=== PATIENT | male | born 1990 | race Caucasian/White ===

== ENCOUNTER 2023-08-30 20:29 | Emergency (ER) | payer OTHER, SELFPAY ==
[2023-08-30 20:31] VITALS: BP 142/82; PULSE 90; RESP 18; TEMP 36.7; O2SAT 97; BMI 54.2
--- NOTE | 2023-08-30 20:37 | PC.NURSE ---
pt presents to ED because patient states a week a half ago started having redness and swelling to eyelid. patient states this morning woke up and and eyelid was even more swollen and having trouble seeing now out of left eye. patient states he has been applying warm compresses to eye. unsure if any drainage from eyelid, just states that eyelid feels sticky.. pt believe it is a stye, has had them in past.
--- NOTE | 2023-08-30 20:40 | ED.EYEPROB1 ---
HPI - Eye Problem General Chief complaint: Eye Problems Stated complaint: Eye Pain Time Seen by Provider: 08/30/23 20:36 Source: patient Mode of arrival: walk-in Limitations: no limitations History of Present Illness HPI Narrative: presents complaining of a sty left eye for past few days. States occ film covers the eye. No eye pain or headache. No fever or chills. 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 hi lo when the film covers his eye Related Data Home Medications Medication Instructions Recorded Confirmed amlodipine 5 mg tablet 5 mg PO DAILY 08/30/23 08/30/23 Allergies Allergy/AdvReac Type Severity Reaction Status Date / Time lisinopril Allergy Unknown Verified 08/30/23 20:34 Review of Systems ROS Status of ROS 10 or more systems reviewed and unremarkable except as noted in history and below PFSH PFS Social History Smoking status: Never smoker Exam Constitutional Vital Signs, click to edit/add: Last Vital Signs Temp 98.0 F 08/30/23 20:31 Pulse 90 08/30/23 20:31 Resp 18 08/30/23 20:31 BP 142/82 H 08/30/23 20:31 Pulse Ox 97 08/30/23 20:31 O2 Del Method Room Air 08/30/23 20:31 Common normals: no apparent distress, oriented x3, alert and well nourished Eye Common normals: PERRL, EOMs intact bilaterally and conjunctivae normal Other: mild edema left upper eyelid. Stye left upper eye lid that is pointing Respiratory Common normals: normal respiratory effort, no use of accessory muscles and clear to auscultation bilaterally Cardio Common normals: regular rate, regular rhythm, S1 normal heart sound and S2 normal heart sound Extremity Common normals: normal to inspection and full ROM Neuro Common normals: oriented x3, CN's II-XII intact bilaterally, moves all extremities and no focal motor deficits Psych Appearance: grossly normal Course Vital Signs Vital signs: Vital Signs Temperature 98.0 F 08/30/23 20:31 Pulse Rate 90 08/30/23 20:31 Respiratory Rate 18 08/30/23 20:31 Blood Pressure 142/82 H 08/30/23 20:31 Pulse Oximetry 97 08/30/23 20:31 Oxygen Delivery Method Room Air 08/30/23 20:31 Temperature 98.0 F 08/30/23 20:31 Pulse Rate 90 08/30/23 20:31 Respiratory Rate 18 08/30/23 20:31 Blood Pressure 142/82 H 08/30/23 20:31 Pulse Oximetry 97 08/30/23 20:31 Oxygen Delivery Method Room Air 08/30/23 20:31 MDM - Eye Problem MDM Narrative Medical decision making narrative: patient presents with a stye left upper eyelid. Sty is pointing and associated with mild edema of the left upper eyelid. No associated pain. His only visual complaint is occ film over the eye which I believe is likely from drainage of the sty. Given prescription for E. mycin ophthalmologic ointment and advised of the need for follow up Discharge Plan Discharge Chief Complaint: Eye Problems Clinical Impression: Hordeolum externum left upper eyelid Patient Disposition: Home, Self-Care Prescriptions / Home Meds: No Action amlodipine 5 mg tablet 5 mg PO DAILY Instructions: Renetta (ED) Additional Instructions: follow up with your doctor in the next 1-2 days for recheck Stand Alone Forms: Portal Instructions Referrals: EM NAILS [Primary Care Provider] - 1 week Discharge Date/Time: 08/30/23 21:01
[2023-08-30] MEDS: ERYTHROMYCIN OP OINT 0.5% 1 GM TUBE OP (20:55)
== END 2023-08-30 21:01 | disposition home or self-care (01) ==
PROVIDERS: Emergency Provider Internal Medicine; PCP Nurse Practitioner Family
DX: H00.014 Hordeolum externum left upper eyelid (principal)
CPT/HCPCS: 99283

== ENCOUNTER 2024-01-23 22:05 | Emergency (ER) | payer OTHER, SELFPAY ==
[2024-01-23 22:08] VITALS: BP 158/110; PULSE 98; RESP 16; TEMP 36.6; O2SAT 97; BMI 44.8
--- OUTSIDE RECORDS SUMMARY | 2024-01-23 22:11 | XMS_ITS | CCD ---
Demographics Address [address] [place] [address] Preferred Language en Marital Status Single Mandaeism Affiliation Unknown Race White Ethnic Group Not or Lati no Author Name Unknown Address [address] [place] [address] Organization [facility] Care Team Providers Care Project Management Director Name Role Phone Daisha Marks Unavailable JULIO ., DR STEPHENS Admitting Unavailable HAY ., DR STEPHENS Attending Unavailable HAY ., DR STEPHENS Consulting Unavailable [facility] Unavailable ZIDEVYN, DR ASHLEY Molina Consulting Unavailable PAY ., DR BREAUX Admitting Unavailable PAY ., DR BREAUX Attending Unavailable [facility] Unavailable PAY ., DR BREAUX Consulting Unavailable JESU EM Attending [facility] Ad[facility] Unavailable [facility] Unavailable LINDA, DR KILO Molina Admitting Unavailable ILNDA, DR KILO Molina Attending Unavailable LINDA, DR KILO Molina Consulting Unavailable GOPI ESTEBAN Admitting Unavailable GOPI ESTEBAN Attending Unavailable GOPI ESTEBAN Consulting Unavailable [facility] Unavailable FELIX KEY Consulting Unavailable LINDA, DR KILO Molina Admitting Unavailable LINDA, DR KILO Molina Attending Unavailable LINDA, DR KILO Molina Consulting [facility] Unavailable CLARE CELAYA Consulting Unavailable Allergies Allergy Classification Reported Allergen(s) Allergy Type Date of Onset Reaction(s) Facility (1 source) Amino Acids Drug Allergy 09-03-2021 [facility] Repository Problems Active Problems Problem Classification Problem Date Documented Da te Episodic/Chronic Essential hypertension (1 source) Essential (primary) hypertension; Translations: [ESSENTIAL PRIMARY HYPERTENSION] Onset: 03-15-2023 Chronic Other aftercare (1 source) Other long term care phlebotomist (current) drug therapy; Translations: [OTH CATTLE RANCHER CURRENT DRUG THERAPY] Onset: 03-15-2023 Episodic Other ear and sense organ disorders (3 sources) Otalgia, left ear; Translations: [OTALGIA LEFT EAR] Onset: 12-16-2022 Episodic Other nutritional; endocrine; and metabolic disorders (1 source) Morbid (severe) obesity due to excess calories; Translations: [MORBID SEVERE OBES D/T EXCESS COREY] Onset: 03-15-2023 Chronic Other nutritional; endocrine; and metabolic disorders (1 source) Body mass index (BMI) 50.0-59.9, adult; Translations: [BODY MASS INDEX BMI 50.0-59.9 ADULT] Onset: 03-15-2023 Chronic Other skin disorders (3 sources) Localized swelling, mass and lump, lower limb, bilateral; Translations: [LOC SWELL MASS LUMP LOW LIMB PALAK] Onset: 03-11-2023 Episodic Other upper respiratory infections (1 source) Acute upper respiratory infection, unspecified; Translations: [ACUTE UP RESPIRATORY INFECTION UNS] Onset: 12-17-2022 Episodic Otitis media and related conditions (1 source) Otitis media, unspecified, left ear; Translations: [OTITIS MEDIA UNSPECIFIED LEFT EAR] Onset: 12-17-2022 Episodic Residual codes; unclassified (1 source) Localized edema; Translations: [LOCALIZED EDEMA] Onset: 03-15-2023 Episodic Screening and history of mental health and substance abuse codes (1 source) Personal history of nicotine dependence; Translations: [PERSONAL HISTORY OF NICOTINE DEPEND] Onset: 03-15-2023 Episodic Substance-related disorders (1 source) Nicotine dependence, cigarettes, uncomplicated; Translations: [NICOTINE DEPEND CIGARETTES UNCOMP] Onset: 09-14-2022 Chronic Unclassified (2 sources) COUGH, UNSPECIFIED; Translations: [COUGH, UNSPECIFIED] Onset: 08-03-2022 Viral infection (1 source) COVID-19; Translations: [COVID-19] Onset: 08-03-2022 Past or Other Problems Problem Classification Problem Date Documented Da te Episodic/Chronic E Codes: Natural/environment (1 source) Exposure to other specified factors, initial encounter; Translations: [EXPOSURE OTHER SPEC FACTORS INITIAL] Onset: 06-08-2022 Episodic Inflammation; infection of eye (except that caused by tuberculosis or sexually transmitteddisease) (4 sources) Unspecified conjunctivitis; Translations: [UNSPECIFIED CONJUNCTIVITIS] Onset: 06-07-2022 Episodic Other connective tissue disease (4 sources) Other specified soft tissue disorders; Translations: [OTHER SPEC SOFT TISSUE DISORDERS] Onset: 09-12-2022 Episodic Other inflammatory condition of skin (1 source) Sunburn of first degree; Translations: [SUNBURN OF FIRST DEGREE] Onset: 06-08-2022 Episodic Superficial injury; contusion (1 source) Abrasion of right eyelid and periocular area, initial encounter; Translations: [ABRASION RT EYELID PERIOCULAR INIT] Onset: 06-08-2022 Episodic Unclassified (1 source) COUGH, UNSPECIFIED; Translations: [COUGH, UNSPECIFIED] Onset: 08-01-2022 Results Test Name Value Interpretation Reference Range Facility BNPon 03-11-2023 Natriuretic peptide B (Bld) [Mass/Vol] 6.0 pg/mL Normal <=450.0 [facility] Comment on above: Performed By: #### B CECILIA, BNP #### [facility] [address] [place] [address] Dr. Scarlett Dickey PROF CHEM 8 (BAS METB)on Anion gap [Moles/Vol] 13.2 mmol/L Normal [facility] Comment on above: Performed By: #### B CECILIA, BNP #### [facility] [address] [place] [address] Dr. Scarlett Dickey Calcium [Mass/Vol] 8.4 mg/dL Critically low 8.5-10.1 [facility] Comment on above: Performed By: #### B CECILIA, BNP #### [facility] [address] [place] [address] Dr. Scarlett Dickey Chloride [Moles/Vol] 105 mmol/L Normal 98-107 [facility] Comment on above: Performed By: #### B CECILIA, BNP #### [facility] [address] [place] [address] Dr. Scarlett Dickey CO2 [Moles/Vol] 28.9 mmol/L Normal 21.0-32.0 [facility] Comment on above: Performed By: #### B MP, BNP #### [facility] [address] [place] [address] Dr. Scarlett Dickey Creatinine [Mass/Vol] 1.04 mg/dL Normal 0.70-1.30 [facility] Comment on above: Performed By: #### B CECILIA, BNP #### [facility] [address] [address] [address] Scarlett Dickey EGFR-AF PORTUGUESE >60 Normal >=60 [place] Comment on above: Performed By: #### B MP, BNP #### [facility] [address] [address] [address] Scarlett Dickey EGFR-NON AF PORTUGUESE >60 Normal >=60 [facility] Comment on above: Performed By: #### B MP, BNP #### [facility] [address] [address] [address] Scarlett Dickey Glucose [Mass/Vol] 147 mg/dL Critically high 74-106 [facility] Comment on above: Performed By: #### B MP, BNP #### [facility] [address] [address] [address] Scarlett Dickey Potassium [Moles/Vol] 4.1 mmol/L Normal 3.5-5.1 [facility] Comment on above: Performed By: #### B MP, BNP #### [facility] [address] [address] [address] Scarlett Dickey Sodium [Moles/Vol] 143 mmol/L Normal 136-145 [facility] Comment on above: Performed By: #### B MP, BNP #### [facility] [address] [address] [address] Scarlett Dickey Urea nitrogen [Mass/Vol] 14.0 mg/dL Normal 7.0-18.0 [facility] Comment on above: Performed By: #### B MP, BNP #### [facility] [address] [address] [address] Scarlett Dickey Urea nitrogen/Creatinin e [Mass ratio] 13.5 mg/mg Normal [facility] Comment on above: Performed By: #### B MP, BNP #### [facility] [address] [address] [address] Scarlett Dickey US EDD DOP LEG LTon 03-11-20 23 US EDD DOP LEG LT EXAMINATION: US EDD DOP LEG LT HISTORY: Pain COMPARISON: No relevant comparison available. FINDINGS: REGION: Left lower extremity THROMBI: None. COMPRESSIBILITY: Normal compressibility. FLOW: Normal waveform and antegrade flow between 5 and 20 cm/s. OTHER: None. IMPRESSION: 1. No deep vein thrombus within the left lower extremity. 2. Subcutaneous edema. Electronically authenticated by: ASHLEY LOVELACE Date: 2023-03-11 11:54 Normal [facility] CBC AUTO DIFFon 09-12-2022 BASO # 0.0 103/ul Normal 0.0-0.1 [facility] Comment on above: Performed By: #### C BC #### [facility] [address] [address] [address] Scarlett Dickey Basophils/100 WBC (Bld) 0.6 % Normal 0.2-2.0 [facility] Comment on above: Performed By: #### C BC #### [facility] [address] [address] [address] Scarlett Dickey EO # 0.2 103/ul Normal 0.0-0.7 [facility] Comment on above: Performed By: #### C BC #### [facility] [address] [address] [address] Scarlett Dickey Eosinophils/100 WBC (Bld) 5.0 % Normal 0.9-7.0 [facility] Comment on above: Performed By: #### C BC #### [facility] [address] [address] [address] Scarlett Dickey Erythrocyte distribution width (RBC) [Ratio] 13.6 % Normal 11.0-15.0 [facility] Comment on above: Performed By: #### C BC #### [facility] [address] [address] [address] Scarlett Dickey Hematocrit (Bld) [Volume fraction] 41.7 % Critically low 42.0-54.0 [facility] Comment on above: Performed By: #### C BC #### [facility] [address] [address] [address] Scarlett Dickey Hemoglobin (Bld) [Mass/Vol] 13.4 g/dL Critically low 14.0-18.0 [facility] Comment on above: Performed By: #### C BC #### [facility] [address] [place] [address] Dr. Scarlett Dickey IG # 0.00 10e3/ul Normal 0.00-0.03 [facility] Comment on above: Performed By: #### C BC #### [facility] [address] [place] [address] Dr. Scarlett Dickey IG % 0.0 % Normal 0.0-0.5 [facility] Comment on above: Performed By: #### C BC #### [facility] [address] [place] [address] Dr. Scarlett Dickey LYMPH # 1.2 103/ul Normal 1.2-3.8 [facility] Comment on above: Performed By: #### C BC #### [facility] [address] [place] [address] Dr. Scarlett Dickey Lymphocytes/100 WBC (Bld) 34.2 % Normal 20.5-60.0 [facility] Comment on above: Performed By: #### C BC #### [facility] [address] [place] [address] Dr. Scarlett Dickey MANUAL DIFF REQ NO Normal [facility] Comment on above: Performed By: #### C BC #### [facility] [address] [place] [address] Dr. Scarlett Dickey MCH (RBC) [Entitic mass] 28.6 pg Normal 25.9-34.0 [facility] Comment on above: Performed By: #### C BC #### [facility] [address] [place] [address] Dr. Scarlett Dickey MCHC (RBC) [Mass/Vol] 32.1 g/dL Normal 29.9-35.2 [facility] Comment on above: Performed By: #### C BC #### [facility] [address] [place] [address] Dr. Scarlett Dickey MCV (RBC) [Entitic vol] 88.9 fL Normal 80.0-94.0 [facility] Comment on above: Performed By: #### C BC #### [facility] [address] [place] [address] Dr. Scarlett Dickey MONO # 0.5 103/ul Normal 0.3-0.8 [facility] Comment on above: Performed By: #### C BC #### [facility] [address] [place] [address] Dr. Scarlett Dickey Monocytes/100 WBC (Bld) 13.6 % Critically high 1.7-12.0 [facility] Comment on above: Performed By: #### C BC #### [facility] [address] [place] [address] Dr. Scarlett Dickey NEUT # 1.7 103/ul Normal 1.4-6.5 [facility] Comment on above: Performed By: #### C BC #### [facility] [address] [place] [address] Dr. Scarlett Dickey Neutrophils/100 WBC (Bld) 46.6 % Normal 43.0-75.0 [facility] Comment on above: Performed By: #### C BC #### [facility] [address] [place] [address] Dr. Scarlett Dickey Platelet mean volume (Bld) [Entitic vol] 9.8 fL Normal 9.5-13.5 [facility] Comment on above: Performed By: #### C BC #### [facility] [address] [place] [address] Dr. Scarlett Dickey PLT 262 103/ul Normal 150-450 [facility] Comment on above: Performed By: #### C BC #### [facility] [address] [place] [address] Dr. Scarlett Dickey RBC 4.69 106/ul Critically low 4.70-6.[address] [facility] Comment on above: Performed By: #### C BC #### [facility] [address] [place] [address] Dr. Scarlett Dickey WBC 3.6 103/ul Critically low 4.0-11.0 [facility] Comment on above: Performed By: #### C BC #### [facility] [address] [place] [address] Dr. Scarlett Dickey D-DIMERon 09-12-2022 D-DIMER 0.43 mg/L FEU Normal <=0.59 [facility] Comment on above: Performed By: #### D DIM #### [facility] [address] [place] [address] Dr. Scarlett Dickey D-DIMER COMMENTS SEE BELOW Normal [place] Comment on above: Result Comment: Incr eases in D-Dimer concentration observed with thromboembolic events can be variable due to localization, size, and age of the thrombus. Therefore, a thromboembolic event cannot be diagnosed with certainty on the basis of the reference range. D-Dimers may also be elevated for a variety of disorders including: advanced age, , coronary disease, cancer, liver disease, infection, inflammation, hematoma, DIC, trauma, post-surgery, diabetes, thrombolytic or anticoagulant therapy, stress, and generalized hospitalization. Performed By: #### D DIM #### [facility] [address] [place] [address] Dr. Scarlett Dickey PROF 14(COMP METB)on 022 Albumin [Mass/Vol] 3.5 g/dL Normal 3.4-5.0 [facility] Comment on above: Performed By: #### C MP #### [facility] [address] [place] [address] Dr. Scarlett Dickey Albumin/Globulin [Mass ratio] 1.0 {ratio} Normal [facility] Comment on above: Performed By: #### C MP #### [facility] [address] [place] [address] Dr. Scarlett Dickey ALP [Catalytic activity/Vol] 63 U/L Normal 46-116 [facility] Comment on above: Performed By: #### C MP #### [facility] [address] [place] [address] Dr. Scarlett Dickey ALT [Catalytic activity/Vol] 32 U/L Normal 16-63 [facility] Comment on above: Performed By: #### C MP #### [facility] [address] [place] [address] Dr. Scarlett Dickey Anion gap [Moles/Vol] 6.0 mmol/L Normal [facility] Comment on above: Performed By: #### C MP #### [facility] [address] [address] [address] Scarlett Dickey AST [Catalytic activity/Vol] 12 U/L Critically low 15-37 [facility] Comment on above: Performed By: #### C MP #### [facility] [address] [address] [address] Scarlett Dickey Bilirubin [Mass/Vol] 0.4 mg/dL Normal 0.2-1.0 [facility] Comment on above: Performed By: #### C MP #### [facility] [address] [address] [address] Scarlett Dickey Calcium [Mass/Vol] 8.3 mg/dL Critically low 8.5-10.1 [facility] Comment on above: Performed By: #### C MP #### [facility] [address] [place] [address] Dr. Scarlett Dickey Chloride [Moles/Vol] 105 mmol/L Normal 98-107 [facility] Comment on above: Performed By: #### C MP #### [facility] [address] [address] [address] Scarlett Dickey CO2 [Moles/Vol] 31.1 mmol/L Normal 21.0-32.0 [place] Comment on above: Performed By: #### C MP #### [facility] [address] [address] [address] Scarlett Dickey Creatinine [Mass/Vol] 0.80 mg/dL Normal 0.70-1.30 [facility] Comment on above: Performed By: #### C MP #### [facility] [address] [address] [address] Scarlett Dickey EGFR-AF PORTUGUESE >60 Normal >=60 [place] Comment on above: Performed By: #### C MP #### [facility] [address] [place] [address] Dr. Scarlett Dickey EGFR-NON AF PORTUGUESE >60 Normal >=60 [facility] Comment on above: Performed By: #### C MP #### [facility] [address] [place] [address] Dr. Scarlett Dickey Globulin (S) [Mass/Vol] 3.4 g/dL Normal [facility] Comment on above: Performed By: #### C MP #### [facility] [address] [address] [address] Scarlett Dickey Glucose [Mass/Vol] 103 mg/dL Normal 74-106 [facility] Comment on above: Performed By: #### C MP #### [facility] [address] [address] [address] Scarlett Dickey Potassium [Moles/Vol] 4.1 mmol/L Normal 3.5-5.1 [facility] Comment on above: Performed By: #### C MP #### [facility] [address] [address] [address] Scarlett Dickey Protein [Mass/Vol] 6.9 g/dL Normal 6.4-8.2 [facility] Comment on above: Performed By: #### C MP #### [facility] [address] [address] [address] Scarlett Dickey Sodium [Moles/Vol] 138 mmol/L Normal 136-145 [facility] Comment on above: Performed By: #### C MP #### [facility] [address] [address] [address] Scarlett Dickey Urea nitrogen [Mass/Vol] 9.0 mg/dL Normal 7.0-18.0 [facility] Comment on above: Performed By: #### C MP #### [facility] [address] [address] [address] Scarlett Dickey Urea nitrogen/Creatinin e [Mass ratio] 11.2 mg/mg Normal [facility] Comment on above: Performed By: #### C MP #### [facility] [address] [place] [address] Dr. Scarlett Dickey XR FOREARM LT 2 VIEWSon 11- XR FOREARM LT 2 VIEWS EXAM: XR FOREARM LT 2 VIEWS HISTORY: Pain COMPARISON: None. TECHNIQUE: 2 views left forearm FINDINGS: Osseous mineralization appears appropriate. No evidence of lytic/blastic bony lesion. No cortical destruction or periostitis. No acute fracture lucency or dislocation. Unremarkable soft tissues without radiopaque foreign body seen. IMPRESSION: No radiographic evidence of an acute bony abnormality. Electronically authenticated by: CLARE CELAYA Date: 2022-09-12 06:33 Normal [facility] Covid-19 PCR (CVDTB)on 07-09 SARS-CoV-2 (COVID-19) RNA NATHAN+probe Ql (Unsp spec) Detected Critically abnormal NOT DETECTED [facility] Comment on above: Result Comment: This test is not yet approved or cleared by the [place] FDA. When there are no FDA-approved or cleared tests available, and other criteria are met, FDA can make tests available under an emergency access mechanism called an Emergency Use Authorization (EUA). The EUA for this test is supported by the [place] of Health and Human Service's declaration that circumstances exist to justify the emergency use of in vitro diagnostics for the detection and/or diagnosis of the virus that causes COVID-19. This EUA will remain in effect for the duration of the COVID-19 declaration justifying emergency of IVDs, unless it is terminated or revoked by the FDA (after which the test may no longer be used). Performed By: #### [facility] #### [facility] [address] [place] [address] Dr. Scarlett Dickey XR CHEST 1 Von 08-01-2022 XR CHEST 1 V EXAMINATION: XR CHEST 1 V HISTORY: Cough COMPARISON: Chest x-ray 11/21/2017 TECHNIQUE: Portable chest FINDINGS: The lung parenchyma is free of consolidation or infiltrate. No pneumothorax or pleural effusion. The cardiac, mediastinal and hilar contours are normal. The visualized osseous structures exhibit no gross abnormality. IMPRESSION: Normal chest x-ray Electronically authenticated by: FELIX KEY Date: 2022-08-01 21:16 Normal [facility] Encounters Encounter Date Encounter Type Care Provider Facility Start: 03-11-2023 Patient encounter procedure [facility] Start: 03-11-2023 End: 03-11-[address]SHLEY LOVELACE [facility] [employer] Other Start: 12-16-2022 End: 12-16-[address] ANGELO KIM . Facility:[facility] Start: 09-12-2022 End: 09-12-[address] KILO MCKEON Facility:[facility] Start: 08-01-2022 End: 08-02-2022 ambulatory GOPI EULALIA Facility:[facility] Start: 06-07-2022 End: 06-07-2022 ambulatory EM NAILS Facility:[facility] Start: 04-08-2022 ambulatory EM NAILS Facility: [facility] Payers Date Payer Category Payer Unknown [id number] 2.16.84 [id number] 1989 Unknown [id number] 2.16.84 [id number] 1989 Unknown [id number] 2.16.84 [id number] 1989 Unknown [id number] 2.16.84 [id number] 1989 Unknown [id number] 2.16.84 [id number] 1989 Unknown [id number] 2.16.84 [id number] 1959 Private Health Insurance [id number] 1960 Self-pay [id number] Social History Date Type Detail Facility Sex Assigned At [facility] Other Evaluation note Note Date & Type Note Facility Evaluation note No Information 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 This clinical summary was aggregated from multiple sources. Caution should be exercised in using it in the provision of clinical care. This summary normalizes information from multiple sources, and as a consequence, information in this document may materially change the coding, format and clinical context of patient data. In addition, data may be omitted in some cases. CLINICAL DECISIONS SHOULD BE BASED ON THE PRIMARY CLINICAL RECORDS. [facility] [employer] [facility]. provides no warranty or guarantee of the accuracy or completeness of information in this document.
--- NOTE | 2024-01-23 22:21 | ED_ITS ---
HPI - Wound/Laceration General Chief Complaint: Wound/Laceration Stated Complaint: Lower Extremity Pain Time Seen by Provider: 01/23/24 22:15 Source: patient Mode of arrival: walk-in Limitations: no limitations History of Present Illness HPI narrative: rash posterior left ankle for past 2weeks. States he keeps scratching it and it won't heal because of his scratching. No pain. No fever. Related Data Home Medications Medication Instructions Recorded Confirmed amlodipine 5 mg tablet 5 mg PO DAILY 08/30/23 01/23/24 Allergies Allergy/AdvReac Type Severity Reaction Status Date / Time lisinopril Allergy Unknown Verified 01/23/24 22:12 Review of Systems ROS Status of ROS 10 or more systems reviewed and unremark able except as noted in history and below [facility] Social History Smoking status: Never smoker Exam Constitutional Vital Signs, click to edit/add: Last Vital Signs Temp 97.8 F 01/23/24 22:08 Pulse 98 H 01/23/24 22:08 Resp 16 01/23/24 22:08 BP 158/110 H 01/23/24 22:08 Pulse Ox 97 01/23/24 22:08 O2 Del Method Room Air 01/23/24 22:08 Common normals: no apparent distress, oriented x3, alert and well nourished Eye Common normals: EOMs intact bilaterally and conjunctivae normal Respiratory Common normals: normal respiratory effort, no retractions, no use of accessory muscles and clear to auscultation bilaterally GI Common normals: Normal to inspection, nondistended, normoactive bowel sounds present Extremity Other: coarse 4cm rash left posterior ankle overlying Achilles. No surrounding erythema or swelling. No red streaks. Neuro Common normals: oriented x3, CN's II-XII intact bilaterally, moves all extremities and no focal motor deficits Psych Appearance: grossly normal Course Vital Signs Vital signs: Vital Signs Temperature 97.8 F 01/23/24 22:08 Pulse Rate 98 H 01/23/24 22:08 Respiratory Rate 16 01/23/24 22:08 Blood Pressure 158/110 H 01/23/24 22:08 Pulse Oximetry 97 01/23/24 22:08 Oxygen Delivery Method Room Air 01/23/24 22:08 Temperature 97.8 F 01/23/24 22:08 Pulse Rate 98 H 01/23/24 22:08 Respiratory Rate 16 01/23/24 22:08 Blood Pressure 158/110 H 01/23/24 22:08 Pulse Oximetry 97 01/23/24 22:08 Oxygen Delivery Method Room Air 01/23/24 22:08 MDM - Wound/Laceration MDM Narrative Medical decision making narrative: continued pruritic focal rash left posterior ankle. Will plan to treat with prednisone and triamcinolone cream . He is advised to follow up with his family doctor later this week for recheck Discharge Plan Discharge Stand Alone Forms: Portal Instructions Chief Complaint: Wound/Laceration Clinical Impression: Rash Prescriptions / Home Meds: No Action amlodipine 5 mg tablet 5 mg PO DAILY Instructions: Acute Rash (ED) Additional Instructions: follow up with your doctor this week for recheck Referrals: EM NAILS [Primary Care Provider] - 1 week
== END 2024-01-23 22:43 | disposition home or self-care (01) ==
PROVIDERS: Emergency Provider Internal Medicine; PCP Nurse Practitioner Family
DX: R21 Rash and other nonspecific skin eruption (principal); Z79.899 Other long term (current) drug therapy
CPT/HCPCS: 99283

== ENCOUNTER 2024-02-28 05:50 | Emergency (ER) | payer OTHER, SELFPAY ==
[2024-02-28 05:53] VITALS: BP 172/105; PULSE 90; TEMP 36.6; O2SAT 98; BMI 57.0
--- OUTSIDE RECORDS SUMMARY | 2024-02-28 05:55 | XMS_ITS | CCD ---
Demographics Address [address] [place] [address] Preferred Language en Marital Status Single Druze Affiliation Unknown Race White Ethnic Group Not or Lati no Author Organization [facility] Care Team Providers Care Oil Well Pumper Name Role Phone Daisha Marks Unavailable JULIO ., DR STEPHENS Admitting Unavailable HAY ., DR STEPHENS Attending Unavailable HAY ., DR STEPHENS Consulting [facility] Unavailable ZIEBGERMAN, DR ASHLEY Molina Consulting Unavailable PAY ., DR BREAUX Admitting Unavailable PAY ., DR BREAUX Attending Unavailable [facility], [facility] Unavailable PAY ., DR BREAUX Consulting Unavailable JESU, EM Attending Unavailable [facility], [facility] Unavailable JESU, EM Admitting Un[facility] LINDA, DR KILO Mloina Admitting Unavailable LINDA, DR KILO Molina Attending Unavailable LINDA, DR KILO Molina Consulting Unavailable GOPI ESTEBAN Admitting Unavailable EULALIA, GOPI Attending Unavailable GOPI ESTEBAN Consulting [facility] FELIX KEY Consulting Unavailable LINDA, DR KILO Molina Admitting Unavailable LINDA, DR KILO Molina Attending Unavailable LINDA, DR KILO Molina Consulting Unavailable JESU, [facility] Unavailable CLARE CELAYA Consulting Unavailable Allergies Allergy Classification Reported Allergen(s) Allergy Type Date of Onset Reaction(s) Facility (1 source) Amino Acids Drug Allergy 09-03-2021 [facility] Repository Problems Active Problems Problem Classification Problem Date Documented Da te Episodic/Chronic Essential hypertension (1 source) Essential (primary) hypertension; Translations: [ESSENTIAL PRIMARY HYPERTENSION] Onset: 03-15-2023 Chronic Other aftercare (1 source) Other ocean transportation intermediary (current) drug therapy; Translations: [OTH USP CURRENT DRUG THERAPY] Onset: 03-15-2023 Episodic Other [...] B (Bld) [Mass/Vol] 6.0 pg/mL Normal <=450.0 [facility] Comment on above: Performed By: #### B MP, BNP #### [facility] [address] [place] [address] Dr. Scarlett Dickey PROF CHEM 8 (BAS METB)on Anion gap [Moles/Vol] 13.2 mmol/L Normal [facility] Comment on above: Performed By: #### B CECILIA, BNP #### [facility] [address] [place] [address] Dr. Scarlett Dickey Calcium [Mass/Vol] 8.4 mg/dL Critically low 8.5-10.1 Th [facility] Comment on above: Performed By: #### B MP, BNP #### [facility] [address] [place] [address] Dr. Scarlett Dickey Chloride [Moles/Vol] 105 mmol/L Normal 98-107 [facility] Comment on above: Performed By: #### B MP, BNP #### [facility] [address] [place] [address] Dr. Scarlett Dickey CO2 [Moles/Vol] 28.9 mmol/L Normal 21.0-32.0 [facility] Comment on above: Performed By: #### B MP, BNP #### [facility] [address] [place] [address] Dr. Scarlett Dickey Creatinine [Mass/Vol] 1.04 mg/dL Normal 0.70-1.30 [facility] Comment on above: Performed By: #### B MP, BNP #### [facility] [address] [place] [address] Dr. Scarlett Dickey EGFR-AF BURUNDIAN >60 Normal >=60 [facility] Comment on above: Performed By: #### B MP, BNP #### [facility] [address] [place] [address] Dr. Scarlett Dickey EGFR-NON AF BURUNDIAN >60 Normal >=60 [facility] Comment on above: Performed By: #### B MP, BNP #### [facility] [address] [address] [address] Scarlett Dickey Glucose [Mass/Vol] 147 mg/dL Critically high 74-106 [facility] Comment on above: Performed By: #### B MP, BNP #### [facility] [address] [address] [address] Scarlett Dickey Potassium [Moles/Vol] 4.1 mmol/L Normal 3.5-5.1 [facility] Comment on above: Performed By: #### B MP, BNP #### [facility] [address] [place] [address] Dr. Scarlett Dickey Sodium [Moles/Vol] 143 mmol/L Normal 136-145 [facility] Comment on above: Performed By: #### B MP, BNP #### [facility] [address] [place] [address] Dr. Scarlett Dickey Urea nitrogen [Mass/Vol] 14.0 mg/dL Normal 7.0-18.0 [facility] Comment on above: Performed By: #### B MP, BNP #### [facility] [address] [place] [address] Dr. Scarlett Dickey Urea nitrogen/Creatinin e [Mass ratio] 13.5 mg/mg Normal [facility] Comment on above: Performed By: #### B MP, BNP #### [facility] [address] [place] [address] Dr. Scarlett Dickey US EDD DOP LEG LTon 03-11-20 US EDD DOP LEG LT EXAMINATION: US EDD DOP LEG LT HISTORY: Pain COMPARISON: No relevant comparison available. FINDINGS: REGION: Left lower extremity THROMBI: None. COMPRESSIBILITY: Normal compressibility. FLOW: Normal waveform and antegrade flow between 5 and 20 cm/s. OTHER: None. IMPRESSION: 1. No deep vein thrombus within the left lower extremity. 2. Subcutaneous edema. Electronically authenticated by: ASHLEY VICKGISELLGERMAN Date: 2023-03-11 11:54 Normal [facility] CBC AUTO DIFFon 09-12-2022 BASO # 0.0 103/ul Normal 0.0-0.1 [facility] Comment on above: Performed By: #### C BC #### [facility] [address] [place] [address] Dr. Scarlett Dickey Basophils/100 WBC (Bld) 0.6 % Normal 0.2-2.0 [facility] Comment on above: Performed By: #### C BC #### [facility] [address] [place] [address] Dr. Scarlett Dickey EO # 0.2 103/ul Normal 0.0-0.7 [facility] Comment on above: Performed By: #### C BC #### [facility] [address] [place] [address] Dr. Scarlett Dickey Eosinophils/100 WBC (Bld) 5.0 % Normal 0.9-7.0 [facility] Comment on above: Performed By: #### C BC #### [facility] [address] [place] [address] Dr. Scarlett Dickey Erythrocyte distribution width (RBC) [Ratio] 13.6 % Normal 11.0-15.0 [facility] Comment on above: Performed By: #### C BC #### [facility] [address] [place] [address] Dr. Scarlett Dickey Hematocrit (Bld) [Volume fraction] 41.7 % Critically low 42.0-54.0 [facility] Comment on above: Performed By: #### C BC #### [facility] [address] [place] [address] Dr. Scarlett Dickey Hemoglobin (Bld) [Mass/Vol] 13.4 g/dL Critically low 14.0-18.0 [facility] Comment on above: Performed By: #### C BC #### [facility] [address] [place] [address] Dr. Scarlett Dickey IG # 0.00 10e3/ul Normal 0.00-0.03 [facility] Comment on above: Performed By: #### C BC #### [facility] [address] [place] [address] Dr. Scarlett Dickey IG % 0.0 % Normal 0.0-0.5 [facility] Comment on above: Performed By: #### C BC #### [facility] [address] [place] [address] Dr. Scarlett Dickey LYMPH # 1.2 103/ul Normal 1.2-3.8 [facility] Comment on above: Performed By: #### C BC #### [facility] [address] [place] [address] Dr. Scarlett Dickey Lymphocytes/100 WBC (Bld) 34.2 % Normal 20.5-60.0 [facility] Comment on above: Performed By: #### C BC #### [facility] [address] [place] [address] Dr. Scarlett Dickey MANUAL DIFF REQ NO Normal [facility] Comment on above: Performed By: #### C BC #### [facility] [address] [place] [address] Dr. Scarlett Dickey MCH (RBC) [Entitic mass] 28.6 pg Normal 25.9-34.0 [facility] Comment on above: Performed By: #### C BC #### [facility] [address] [place] [address] Dr. Scarlett Dickey MCHC (RBC) [Mass/Vol] 32.1 g/dL Normal 29.9-35.2 [facility] Comment on above: Performed By: #### C BC #### [facility] [address] [place] [address] Dr. Scarlett Dickey MCV (RBC) [Entitic vol] 88.9 fL Normal 80.0-94.0 [facility] Comment on above: Performed By: #### C BC #### [facility] [address] [place] [address] Dr. Scarlett Dickey MONO # 0.5 103/ul Normal 0.3-0.8 [facility] Comment on above: Performed By: #### C BC #### [facility] [address] [address] [address] Scarlett Dickey Monocytes/100 WBC (Bld) 13.6 % Critically high 1.7-12.0 [facility] Comment on above: Performed By: #### C BC #### [facility] [address] [address] [address] Scarlett Dickey NEUT # 1.7 103/ul Normal 1.4-6.5 [facility] Comment on above: Performed By: #### C BC #### [facility] [address] [address] [address] Scarlett Dickey Neutrophils/100 WBC (Bld) 46.6 % Normal 43.0-75.0 [facility] Comment on above: Performed By: #### C BC #### [facility] [address] [place] [address] Dr. Scarlett Dickey Platelet mean volume (Bld) [Entitic vol] 9.8 fL Normal 9.5-13.5 [facility] Comment on above: Performed By: #### C BC #### [facility] [address] [place] [address] Dr. Scarlett Dickey PLT 262 103/ul Normal 150-450 [facility] Comment on above: Performed By: #### C BC #### [facility] [address] [place] [address] Dr. Scarlett Dickey RBC 4.69 106/ul Critically low 4.70-6.10 [facility] Comment on above: Performed By: #### C BC #### [facility] [address] [place] [address] Dr. Scarlett Dickey WBC 3.6 103/ul Critically low 4.0-11.0 [facility] Comment on above: Performed By: #### C BC #### [facility] [address] [place] [address] Dr. Scarlett Dickey D-DIMERon 09-12-2022 D-DIMER 0.43 mg/L FEU Normal <=0.59 [facility] Comment on above: Performed By: #### D DIM #### [facility] [address] [place] [address] Dr. Scarlett Dickey D-DIMER COMMENTS SEE BELOW Normal [facility] Comment on above: Result Comment: Incr eases [...] hospitalization. Performed By: #### D DIM #### [facility] [address] [place] [address] Dr. Scarlett Dickey PROF 14(COMP METB)on 022 Albumin [Mass/Vol] 3.5 g/dL Normal 3.4-5.0 [facility] Comment on above: Performed By: #### C MP #### [facility] [address] [place] [address] Dr. Scarlett Dickey Albumin/Globulin [Mass ratio] 1.0 {ratio} Normal [facility] Comment on above: Performed By: #### C MP #### [facility] [address] [place] [address] Dr. Scarlett Dickey ALP [Catalytic activity/Vol] 63 U/L Normal 46-116 [facility] Comment on above: Performed By: #### C MP #### [facility] [address] [place] [address] Dr. Scarlett Dickey ALT [Catalytic activity/Vol] 32 U/L Normal 16-63 [facility] Comment on above: Performed By: #### C MP #### [facility] [address] [place] [address] Dr. Scarlett Dickey Anion gap [Moles/Vol] 6.0 mmol/L Normal [facility] Comment on above: Performed By: #### C MP #### [facility] [address] [place] [address] Dr. Scarlett Dickey AST [Catalytic activity/Vol] 12 U/L Critically low 15-37 [facility] Comment on above: Performed By: #### C MP #### [facility] [address] [address] [address] Scarlett Dickey Bilirubin [Mass/Vol] 0.4 mg/dL Normal 0.2-1.0 [facility] Comment on above: Performed By: #### C MP #### [facility] [address] [address] [address] Scarlett Dickey Calcium [Mass/Vol] 8.3 mg/dL Critically low 8.5-10.1 [facility] Comment on above: Performed By: #### C MP #### [facility] [address] [place] [address] Dr. Scarlett Dickey Chloride [Moles/Vol] 105 mmol/L Normal 98-107 [facility] Comment on above: Performed By: #### C MP #### [facility] [address] [place] [address] Dr. Scarlett Dickey CO2 [Moles/Vol] 31.1 mmol/L Normal 21.0-32.0 [facility] Comment on above: Performed By: #### C MP #### [facility] [address] [place] [address] Dr. Scarlett Dickey Creatinine [Mass/Vol] 0.80 mg/dL Normal 0.70-1.30 [facility] Comment on above: Performed By: #### C MP #### [facility] [address] [place] [address] Dr. Scarlett Dickey EGFR-AF BURUNDIAN >60 Normal >=60 [facility] Comment on above: Performed By: #### C MP #### [facility] [address] [place] [address] Dr. Scarlett Dickey EGFR-NON AF BURUNDIAN >60 Normal >=60 [facility] Comment on above: Performed By: #### C MP #### [facility] [address] [place] [address] Dr. Scarlett Dickey Globulin (S) [Mass/Vol] 3.4 g/dL Normal [facility] Comment on above: Performed By: #### C MP #### [facility] [address] [address] [address] Scarlett Dickey Glucose [Mass/Vol] 103 mg/dL Normal 74-106 [facility] Comment on above: Performed By: #### C MP #### [facility] [address] [address] [address] Scarlett Dickey Potassium [Moles/Vol] 4.1 mmol/L Normal 3.5-5.1 [facility] Comment on above: Performed By: #### C MP #### [facility] [address] [address] [address] Scarlett Dickey Protein [Mass/Vol] 6.9 g/dL Normal 6.4-8.2 [facility] Comment on above: Performed By: #### C MP #### [facility] [address] [address] [address] Scarlett Dickey Sodium [Moles/Vol] 138 mmol/L Normal 136-145 [facility] Comment on above: Performed By: #### C MP #### [facility] [address] [address] [address] Scarlett Dickey Urea nitrogen [Mass/Vol] 9.0 mg/dL Normal 7.0-18.0 [facility] Comment on above: Performed By: #### C MP #### [facility] [address] [address] [address] Scarlett Dickey Urea nitrogen/Creatinin e [Mass ratio] 11.2 mg/mg Normal [facility] Comment on above: Performed By: #### C MP #### [facility] [address] [address] [address] Scarlett Dickey XR FOREARM LT 2 VIEWSon XR FOREARM LT 2 VIEWS EXAM: XR [...] CLARE CELAYA Date: 2022-09-12 06:33 Normal [facility] 07-09 SARS-CoV-2 (COVID-19) RNA NATHAN+probe Ql (Unsp spec) Detected Critically abnormal NOT DETECTED [facility] Comment on above: Result Comment: This test is not yet approved or cleared by the [place] FDA. When there are no FDA-approved or cleared tests available, and other criteria are met, FDA can make tests available under an emergency access mechanism called an Emergency Use Authorization (EUA). The EUA for this test is supported by the Event Staff of Health and Human Service's declaration that [...] longer be used). Performed By: #### [facility] #### [facility] [address] [address] [address] Scarlett Dickey XR CHEST 1 Von [...] FELIX KEY Date: 2022-08-01 21:16 Normal [facility] Encounters Encounter Date Encounter Type Care Provider Facility Start: 03-11-2023 Patient encounter procedure [facility] Start: 03-11-2023 End: 03-11-[address] ASHLEY LOVEL[facility] Other Start: 12-16-2022 End: 12-16-[address] ANGELO KIM . Facility:[facility] Start: 09-12-2022 End: 09-12-[address] KILO MCKEON Facility:[facility] Start: 08-01-2022 End: 08-02-2022 ambulatory GOPI ESTEBAN Facility:[facility] Start: 06-07-2022 End: 06-07-2022 ambulatory EM NAILS Facility:[facility] Start: 04-08-2022 ambulatory EM NAILS Facility: [facility] Payers Date Payer Category Payer Unknown [id number] 2.16.84 [id number] 1989 Unknown [id number] 2.16.84 [id number] 1989 Unknown [id number] 2.16.84 [id number] 1989 Unknown [id number] 2.16.84 [id number] 1989 Unknown [id number] 2.16.84 [id number] 1989 Unknown [id number] 2.16.84 [id number] 1959 Private Health Insurance [id number] 1960 Self-pay [id number] Social History Date Type Detail Facility Sex Assigned At [facility] Other Evaluation note Note Date & Type Note Facility Evaluation note No Information [facility] Other Summary Purpose Family History No Family History Records Found Advance Directives No Advanced Directives Records Found Additional Source Comments REASON FOR VISIT (unrecogniz ed section and content) swelling in legs 4+ pitting edema, 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 [facility] [employer] [facility]. provides no warranty or guarantee of the accuracy or completeness of information in this document.
--- NOTE | 2024-02-28 06:07 | ECG_ITS ---
[facility] Test Date: 2024-02-28 Pat Name: KRISTA LAND Department: Room: - Gender: Male Washer Off: : 1990 Requested By: EM NAILS Order Number: [id number] Reading MD: MONALIAS HOLM Measurements Intervals [place] Rate: 89 P: 50 [place]: 160 QRS: 79 QRSD: 76 T: 54 QT: 330 QTc: 376 Interpretive Statements 1100 Sinus rhythm 9110 normal ECG No previous ECG available for comparison Electronically Signed On 02-28-2024 18:03:51 EDT by MONALISA HOLM
--- NOTE | 2024-02-28 06:07 | ED.GENADUL1 ---
HPI HPI - General Adult General Chief complaint: Anxiety Stated complaint: NEED TO TALK TO DOC, NOT SICK WON'T TELL ME Time Seen by Provider: 02/28/24 05:54 Source: patient Mode of arrival: walk-in History of Present Illness HPI narrative: 34-year-old male presents for the fear of swallowing, he feels like he is going to choke. It is for days ago while he was eating a steak at a restaurant. He was able to eat half a steak and then when he went to take another bite he felt like he was going to choke. Since then he has not been eating much food at all but he has been drinking liquids without difficulty. He made some potato chips soggy today and was able to swallow them. No chest pain or tightness in his chest. He has never had endoscopy or had a food bolus. Related Data Home Medications ?Medication ?Instructions ?Recorded ?Confirmed amlodipine 5 mg tablet 5 mg PO DAILY 08/30/23 02/28/24 Allergies Allergy/AdvReac Type Severity Reaction Status Date / Time lisinopril Allergy Unknown Verified 02/28/24 06:00 Opioid HPI Opioid Management Most Recent Opioid Data: No Data to Display Review of Systems ROS Narrative A ten point review of systems is negative except as noted above. PFSH PFSH Social History Smoking status: Never smoker Exam Narrative Exam Narrative: Nurses note and vital signs reviewed and patient is not hypoxic. General: The patient appears well and in no apparent distress. Patient is resting comfortably on cart. Skin: Warm, dry, no pallor noted. There is no rash noted. Head: Normocephalic, atraumatic Eye: Normal conjunctiva, no drainage Ears, Nose, Mouth, and Throat: oral mucosa is moist. Nares patent. No pharyngeal erythema or exudate. Cardiovascular: Regular Rate and Rhythm Respiratory: Patient is in no distress, no accessory muscle use, lungs are clear to auscultation, no wheezing, rales or rhonchi Back: non-tender GI: Obese soft and nontender Musculoskeletal: The patient has no evidence of calf tenderness, no pitting edema, symmetrical pulses noted bilaterally Neurological: A&O, normal speech Psychiatric: Cooperative Constitutional Vital Signs, click to edit/add: Last Vital Signs Temp 97.9 F 02/28/24 05:53 Pulse 90 02/28/24 05:53 Resp 24 H 02/28/24 05:53 BP 172/105 H 02/28/24 05:53 Pulse Ox 98 02/28/24 05:53 O2 Del Method Room Air 02/28/24 05:53 Course Vital Signs Vital signs: Vital Signs Temperature 97.9 F 02/28/24 05:53 Pulse Rate 90 02/28/24 05:53 Respiratory Rate 24 H 02/28/24 05:53 Blood Pressure 172/105 H 02/28/24 05:53 Pulse Oximetry 98 02/28/24 05:53 Oxygen Delivery Method Room Air 02/28/24 05:53 Temperature 97.9 F 02/28/24 05:53 Pulse Rate 90 02/28/24 05:53 Respiratory Rate 24 H 02/28/24 05:53 Blood Pressure 172/105 H 02/28/24 05:53 Pulse Oximetry 98 02/28/24 05:53 Oxygen Delivery Method Room Air 02/28/24 05:53 Medical Decision Making MDM Narrative Medical decision making narrative: Blood work is nonspecific. He is able to drink liquids without any difficulty and was able to eat some food as well. He is not dehydrated. I do not clinically suspect a food bolus. He was given referral to general surgery for endoscopy if his symptoms persist and he is going to follow-up with his PCP. Treatment diagnosis and follow-up were discussed with the patient. Differential Diagnosis Differential Diagnosis: Anxiety, food bolus, dehydration Lab Data Lab results reviewed: Yes I reviewed the patient's lab results Labs: Lab Results 02/28/24 02/28/24 Range/Units 06:30 06:35 WBC 5.3 (4.0-11.0) 10^3/uL RBC 4.77 (4.70-6.10) 10^6/uL Hgb 13.6 L (14.0-18.0) g/dL Hct 42.7 (42.0-54.0) % MCV 89.5 (80.0-94.0) fL MCH 28.5 (25.9-34.0) pg MCHC 31.9 (29.9-35.2) g/dL RDW 13.2 (11.0-15.0) % Plt Count 241 (150-450) 10^3/uL MPV 9.7 (9.5-13.5) fL Neut % (Auto) 63.8 (43.0-75.0) % Lymph % (Auto) 21.7 (20.5-60.0) % Peñuel[place] % (Auto) 10.1 (1.7-12.0) % Eos % (Auto) 3.6 (0.9-7.0) % Baso % (Auto) 0.8 (0.2-2.0) % Neut # (Auto) 3.4 (1.4-6.5) 10^3/uL Lymph # (Auto) 1.1 L (1.2-3.8) 10^3/uL Peñuel[place] # (Auto) 0.5 (0.3-0.8) 10^3/uL Eos # (Auto) 0.2 (0.0-0.7) 10^3/uL Baso # (Auto) 0.0 (0.0-0.1) 10^3/uL Abs Immat Gran (auto) 0.00 (0.00-0.03) 10^3/uL Imm/Tot Granulo (auto) 0.0 (0.0-0.5) % Sodium 139 (136-145) mmol/L Potassium 4.0 (3.5-5.1) mmol/L Chloride 102 (98-107) mmol/L Carbon Dioxide 27.5 (21.0-32.0) mmol/L Anion Gap 13.5 BUN 10.0 (7.0-18.0) mg/dL Creatinine 0.93 (0.70-1.30) mg/dL Est GFR ( Amer) >60 (>=60) Est GFR (Non-Af Amer) >60 (>=60) BUN/Creatinine Ratio 10.8 Glucose 109 H (74-106) mg/dL Calcium 9.4 (8.5-10.1) mg/dL Urine Color Yellow (YELLOW) Urine Clarity Clear (CLEAR) Urine pH 5.5 (5.0-9.0) Ur Specific Cecil >=1.030 A (1.005-1.025) Urine Protein Negative (NEG/TRACE) mg/dL Urine Glucose (UA) Negative (NEGATIVE) mg/dL Urine Ketones Trace A (NEGATIVE) mg/dL Urine Occult Blood Negative (NEGATIVE) Urine Nitrite Negative (NEGATIVE) Urine Bilirubin Negative (NEGATIVE) Urine Urobilinogen 0.2 (0.2-1.0) EU/dL Ur Leukocyte Esterase Negative (NEGATIVE) Urine RBC 0-2 (0-2) #/HPF Urine WBC 0-2 A (NONE SEEN) #/HPF Ur Squamous Epith Cells None seen (NONE/RARE) #/LPF Urine Crystals None seen (None Seen) #/HPF Urine Bacteria None seen (NONE SEEN) #/HPF Urine Casts None seen (NONE SEEN) #/LPF Urine Mucus Trace A (NONE SEEN) ECG Data Attestation: I personally reviewed and interpreted this ECG as follows: (EKG on my interpretation shows sinus rhythm without acute change) Discharge Plan Discharge Stand Alone Forms: Portal Instructions Chief Complaint: Anxiety Clinical Impression: Acute anxiety Patient Disposition: Home, Self-Care Time of Disposition Decision: 06:51 Condition: Good Mode of Transportation: Private Vehicle Prescriptions / Home Meds: No Action amlodipine 5 mg tablet 5 mg PO DAILY Print Language: Italian Instructions: Anxiety (ED) Referrals: EM NAILS [Primary Care Provider] - 1 week
[2024-02-28 06:34] LABS: Basophils Percent Auto 0.8 % (0.2-2.0); Eosinophils Absolute Auto 0.2 10^3/uL (0.0-0.7); Eosinophils Percent Auto 3.6 % (0.9-7.0); Hematocrit 42.7 % (42.0-54.0); Hemoglobin 13.6 g/dL (14.0-18.0); Lymphocytes Absolute Auto 1.1 10^3/uL (1.2-3.8); Lymphocytes Percent Auto 21.7 % (20.5-60.0); Mean Corpuscular HGB Conc 31.9 g/dL (29.9-35.2); Mean Corpuscular Hemoglobin 28.5 pg (25.9-34.0); Mean Corpuscular Volume 89.5 fL (80.0-94.0); Mean Platelet Volume 9.7 fL (9.5-13.5); Monocytes Absolute Auto 0.5 10^3/uL (0.3-0.8); Monocytes Percent Auto 10.1 % (1.7-12.0); Neutrophils Absolute Auto 3.4 10^3/uL (1.4-6.5); Neutrophils Percent Auto 63.8 % (43.0-75.0); Platelet Count 241 10^3/uL (150-450); Red Blood Count 4.77 10^6/uL (4.70-6.10); Red Cell Distribution Width 13.2 % (11.0-15.0); White Blood Count 5.3 10^3/uL (4.0-11.0)
[2024-02-28 06:37] LABS: Bilirubin Urine NEGATIVE (NEGATIVE); Blood Urine NEGATIVE (NEGATIVE); Clarity Urine CLEAR (CLEAR); Color Urine YELLOW (YELLOW); Glucose Urine UA NEGATIVE (NEGATIVE); Ketones Urine TRACE mg/dL (NEGATIVE); Leukocyte Esterase Urine NEGATIVE (NEGATIVE); Nitrite Urine NEGATIVE (NEGATIVE); Protein Urine NEGATIVE (NEG/TRACE); Specific Gravity Urine >=1.030 (1.005-1.025); Urobilinogen Urine 0.2 EU/dL (0.2-1.0); pH Urine 5.5 (5.0-9.0)
[2024-02-28] MEDS: 0.9 % SODIUM CHLORIDE 1,000 ML 1000 ML IV (06:40)
[2024-02-28 06:43] LABS: Anion Gap 13.5; BUN Creatinine Ratio 10.8; Calcium 9.4 mg/dL (8.5-10.1); Carbon Dioxide 27.5 mmol/L (21.0-32.0); Chloride 102 mmol/L (98-107); Estimated GFR (African America >60 (>=60); Estimated GFR (Non-African Ame >60 (>=60); Glucose 109 mg/dL (74-106); Sodium 139 mmol/L (136-145)
[2024-02-28 06:46] VITALS: PULSE 89
[2024-02-28 06:48] LABS: RBC Urine 0-2 #/HPF (0-2); WBC Urine 0-2 #/HPF (NONE SEEN)
[2024-02-28 06:49] LABS: Bacteria Urine NONE SEEN #/HPF (NONE SEEN); Cast Seen? NONE SEEN #/LPF (NONE SEEN); Crystals Seen? None Seen #/HPF (None Seen); Mucus Urine TRACE (NONE SEEN); Squamous Epithelial Cell Urine NONE SEEN #/LPF (NONE/RARE)
--- NOTE | 2024-02-28 06:49 | PC.NURSE ---
patient reports a fear of choking since he had a burger go down the wrong tube 3 days ago and had a panick attack. patient stats he can tolerate any liquids perfectly fine but has not been able to eat due to the anxiety and fear.
== END 2024-02-28 07:00 | disposition home or self-care (01) ==
PROVIDERS: Emergency Provider Emergency Medicine; PCP Nurse Practitioner Family
DX: F41.9 Anxiety disorder, unspecified (principal); Z79.899 Other long term (current) drug therapy
CPT/HCPCS: 36415; 80048; 81001; 85025; 93005; 99284

== ENCOUNTER 2024-03-13 06:40 | Outpatient (OUT) | payer OTHER, SELFPAY ==
--- OUTSIDE RECORDS SUMMARY | 2024-03-13 06:43 | XMS_ITS | CCD ---
Demographics Address [address] [place] [address] Preferred Language en Marital Status Single Pentecostal Affiliation Unknown Race White Ethnic Group Not or Lati no Author Organization [facility] Care Team Providers Care Scabbler Name Role Phone Daisha Marks Unavailable JULIO ., DR STEPHENS Admitting Unavailable HAY ., DR STEPHENS Attending Unavailable HAY ., DR STEPHENS Consulting [facility] Unavailable ZIEBGERMAN, DR ASHLEY Molina Consulting Unavailable PAY ., DR BREAUX Admitting Unavailable PAY ., DR BREAUX Attending Unavailable [facility] Unavailable PAY ., DR BREAUX Consulting Unavailable JESU, EM Attending Unavailable JESU, [facility] Unavailable JESU, EM Admitting Un[facility] LINDA, DR KILO Molina Admitting Unavailable LINDA, DR KILO Molina Attending Unavailable LINDA, DR KILO Molina Consulting Unavailable GOPI ESTEBAN Admitting Unavailable EULALIA, GOPI Attending Unavailable GOPI ESTEBAN Consulting [facility] FELIX KEY Consulting Unavailable LINDA, DR KILO Molina Admitting Unavailable LINDA, DR KILO Molina Attending Unavailable LINDA, DR KILO Molina Consulting Unavailable JESU, [facility] Unavailable CLARE CELAYA Consulting Unavailable Allergies Allergy Classification Reported Allergen(s) Allergy Type Date of Onset Reaction(s) Facility (1 source) Amino Acids Drug Allergy 09-03-2021 [facility] Repository Problems Active Problems Problem Classification Problem Date Documented Da te Episodic/Chronic Essential hypertension (1 source) Essential (primary) hypertension; Translations: [ESSENTIAL PRIMARY HYPERTENSION] Onset: 03-15-2023 Chronic Other aftercare (1 source) Other terminal carman (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 Scarlett Dickey PROF CHEM 8 (BAS METB)on Anion gap [Moles/Vol] 13.2 mmol/L Normal [facility] Comment on above: Performed By: #### B MP, BNP #### [facility] [address] [place] [address] Dr. Scarlett Dickey Calcium [Mass/Vol] 8.4 mg/dL Critically low 8.5-10.1 [facility] Comment on above: Performed By: #### B MP, BNP #### [facility] [address] [place] [address] Dr. Scarlett Dickey Chloride [Moles/Vol] 105 mmol/L Normal 98-107 [facility] Comment on above: Performed By: #### B MP, BNP #### [facility] [address] [place] [address] Dr. Scarlett Dickey CO2 [Moles/Vol] 28.9 mmol/L Normal 21.0-32.0 [facility] Comment on above: Performed By: #### B MP, BNP #### [facility] [address] [place] [address] Dr. Scarlett Dickey Creatinine [Mass/Vol] 1.04 mg/dL Normal 0.70-1.30 [facility] Comment on above: Performed By: #### B MP, BNP #### [facility] [address] [place] [address] Dr. Scarlett Dickey EGFR-AF NIGERIAN >60 Normal >=60 [facility] Comment on above: Performed By: #### B MP, BNP #### [facility] [address] [place] [address] Dr. Scarlett Dickey EGFR-NON AF NIGERIAN >60 Normal >=60 [facility] Comment on above: Performed By: #### B MP, BNP #### [facility] [address] [address] [address] Scarlett Dickey Glucose [Mass/Vol] 147 mg/dL Critically high 74-106 [facility] Comment on above: Performed By: #### B MP, BNP #### [facility] [address] [address] [address] Scarlett Dickey Potassium [Moles/Vol] 4.1 mmol/L Normal 3.5-5.1 [facility] Comment on above: Performed By: #### B MP, BNP #### [facility] [address] [place] [address] Dr. Scarlett Dickey Sodium [Moles/Vol] 143 mmol/L Normal 136-145 [facility] Comment on above: Performed By: #### B MP, BNP #### [facility] [address] [place] [address] Dr. Scarlett Dickey Urea nitrogen [Mass/Vol] 14.0 mg/dL Normal 7.0-18.0 [facility] Comment on above: Performed By: #### B MP, BNP #### [facility] [address] [place] [address] Dr. Scarlett Dickey Urea nitrogen/Creatinin e [Mass ratio] 13.5 mg/mg Normal [facility] Comment on above: Performed By: #### B MP, BNP #### [facility] [address] [place] [address] Dr. Scarlett Dickey US EDD DOP LEG [...] ASHLEY LOVELACE Date: 2023-03-11 11:54 Normal [facility] CBC AUTO DIFFon 09-12-2022 BASO # 0.0 103/ul Normal 0.0-0.1 [facility] Comment on above: Performed By: #### C BC #### [facility] [address] [place] [address] Dr. Scarlett Dickey Basophils/100 WBC (Bld) 0.6 % Normal 0.2-2.0 [facility] Comment on above: Performed By: #### C BC #### [facility] [address] [place] [address] Dr. Scarlett Dickey EO # 0.2 103/ul Normal 0.0-0.7 [facility] Comment on above: Performed By: #### C BC #### [facility] [address] [place] [address] Dr. Scarlett Dickey Eosinophils/100 WBC (Bld) 5.0 % Normal 0.9-7.0 [facility] Comment on above: Performed By: #### C BC #### [facility] [address] [place] [address] Dr. Scarlett Dickey Erythrocyte distribution width (RBC) [Ratio] 13.6 % Normal 11.0-15.0 [facility] Comment on above: Performed By: #### C BC #### [facility] [address] [place] [address] Dr. Scarlett Dickey Hematocrit (Bld) [Volume fraction] 41.7 % Critically low 42.0-54.0 [facility] Comment on above: Performed By: #### C BC #### [facility] [address] [place] [address] Dr. Scarlett Dickey Hemoglobin (Bld) [Mass/Vol] 13.4 g/dL Critically low 14.0-18.0 [facility] Comment on above: Performed By: #### C BC #### [facility] [address] [place] [address] Dr. Scarlett Dickey IG # 0.00 10e3/ul Normal 0.00-0.03 [facility] Comment on above: Performed By: #### C BC #### [facility] [address] [place] [address] Dr. Scarlett Dickey IG % 0.0 % Normal 0.0-0.5 [facility] Comment on above: Performed By: #### C BC #### [facility] [address] [place] [address] Dr. Scarlett Dickey LYMPH # 1.2 103/ul Normal 1.2-3.8 [facility] Comment on above: Performed By: #### C BC #### [facility] [address] [place] [address] Dr. Scarlett Dickey Lymphocytes/100 WBC (Bld) 34.2 % Normal 20.5-60.0 [facility] Comment on above: Performed By: #### C BC #### [facility] [address] [place] [address] Dr. Scarlett Dickey MANUAL DIFF REQ NO Normal [facility] Comment on above: Performed By: #### C BC #### [facility] [address] [place] [address] Dr. Scarlett Dickey MCH (RBC) [Entitic mass] 28.6 pg Normal 25.9-34.0 [facility] Comment on above: Performed By: #### C BC #### [facility] [address] [place] [address] Dr. Scarlett Dickey MCHC (RBC) [Mass/Vol] 32.1 g/dL Normal 29.9-35.2 [facility] Comment on above: Performed By: #### C BC #### [facility] [address] [place] [address] Dr. Scarlett Dickey MCV (RBC) [Entitic vol] 88.9 fL Normal 80.0-94.0 [facility] Comment on above: Performed By: #### C BC #### [facility] [address] [place] [address] Dr. Scarlett Dickey MONO # 0.5 103/ul Normal 0.3-0.8 [facility] Comment on above: Performed By: #### C BC #### [facility] [address] [address] [address] Scarlett Dickey Monocytes/100 WBC (Bld) 13.6 % Critically high 1.7-12.0 [facility] Comment on above: Performed By: #### C BC #### [facility] [address] [address] [address] Scarlett Dickey NEUT # 1.7 103/ul Normal 1.4-6.5 [facility] Comment on above: Performed By: #### C BC #### [facility] [address] [address] [address] Scarlett Dickey Neutrophils/100 WBC (Bld) 46.6 % Normal 43.0-75.0 [facility] Comment on above: Performed By: #### C BC #### [facility] [address] [place] [address] Dr. Scarlett Dickey Platelet mean volume (Bld) [Entitic vol] 9.8 fL Normal 9.5-13.5 [facility] Comment on above: Performed By: #### C BC #### [facility] [address] [place] [address] Dr. Scarlett Dickey PLT 262 103/ul Normal 150-450 [facility] Comment on above: Performed By: #### C BC #### [facility] [address] [address] [address] Scarlett Dickey RBC 4.69 106/ul Critically low 4.70-6.10 [facility] Comment on above: Performed By: #### C BC #### [facility] [address] [place] [address] Dr. Scarlett Dickey WBC 3.6 103/ul Critically low 4.0-11.0 [facility] Comment on above: Performed By: #### C BC #### [facility] [address] [place] [address] Dr. Scarlett Dickey D-DIMERon 09-12-2022 D-DIMER 0.43 mg/L FEU Normal <=0.59 [facility] Comment on above: Performed By: #### D DIM #### [facility] [address] [place] [address] Dr. Scarlett Dickey D-DIMER COMMENTS SEE BELOW Normal [facility] Comment on above: Result Comment: Incr [...] hospitalization. Performed By: #### D DIM #### [facility] [address] [place] [address] Dr. Scarlett Dickey PROF 14(COMP METB)on 022 Albumin [Mass/Vol] 3.5 g/dL Normal 3.4-5.0 [facility] Comment on above: Performed By: #### C MP #### [facility] [address] [place] [address] Dr. Scarlett Dickey Albumin/Globulin [Mass ratio] 1.0 {ratio} Normal [facility] Comment on above: Performed By: #### C MP #### [facility] [address] [place] [address] Dr. Scarlett Dickey ALP [Catalytic activity/Vol] 63 U/L Normal 46-116 [facility] Comment on above: Performed By: #### C MP #### [facility] [address] [place] [address] Dr. Scarlett Dickey ALT [Catalytic activity/Vol] 32 U/L Normal 16-63 [facility] Comment on above: Performed By: #### C MP #### [facility] [address] [place] [address] Dr. Scarlett Dickey Anion gap [Moles/Vol] 6.0 mmol/L Normal [facility] Comment on above: Performed By: #### C MP #### [facility] [address] [place] [address] Dr. Scarlett Dickey AST [Catalytic activity/Vol] 12 U/L Critically low 15-37 [facility] Comment on above: Performed By: #### C MP #### [facility] [address] [address] [address] Scarlett Dickey Bilirubin [Mass/Vol] 0.4 mg/dL Normal 0.2-1.0 [facility] Comment on above: Performed By: #### C MP #### [facility] [address] [address] [address] Scarlett Dickey Calcium [Mass/Vol] 8.3 mg/dL Critically low 8.5-10.1 [facility] Comment on above: Performed By: #### C MP #### [facility] [address] [address] [address] Scarlett Dickey Chloride [Moles/Vol] 105 mmol/L Normal 98-107 [facility] Comment on above: Performed By: #### C MP #### [facility] [address] [address] [address] Scarlett Dickey CO2 [Moles/Vol] 31.1 mmol/L Normal 21.0-32.0 [facility] Comment on above: Performed By: #### C MP #### [facility] [address] [place] [address] Dr. Scarlett Dickey Creatinine [Mass/Vol] 0.80 mg/dL Normal 0.70-1.30 [facility] Comment on above: Performed By: #### C MP #### [facility] [address] [address] [address] Scarlett Dickey EGFR-AF NIGERIAN >60 Normal >=60 [facility] Comment on above: Performed By: #### C MP #### [facility] [address] [address] [address] Scarlett Dickey EGFR-NON AF NIGERIAN >60 Normal >=60 [facility] Comment on above: Performed By: #### C MP #### [facility] [address] [address] [address] Scarlett Dickey Globulin (S) [Mass/Vol] 3.4 g/dL Normal [facility] Comment on above: Performed By: #### C MP #### [facility] [address] [address] [address] Scarlett Dickey Glucose [Mass/Vol] 103 mg/dL Normal 74-106 [facility] Comment on above: Performed By: #### C MP #### [facility] [address] [address] [address] Scarlett Dickey Potassium [Moles/Vol] 4.1 mmol/L Normal 3.5-5.1 [facility] Comment on above: Performed By: #### C MP #### [facility] [address] [address] [address] Scarlett Dickey Protein [Mass/Vol] 6.9 g/dL Normal 6.4-8.2 [facility] Comment on above: Performed By: #### C MP #### [facility] [address] [address] [address] Scarlett Dickey Sodium [Moles/Vol] 138 mmol/L Normal 136-145 [facility] Comment on above: Performed By: #### C MP #### [facility] [address] [address] [address] Scarlett Dickey Urea nitrogen [Mass/Vol] 9.0 mg/dL Normal 7.0-18.0 [facility] Comment on above: Performed By: #### C MP #### [facility] [address] [address] [address] Scarlett Dickey Urea nitrogen/Creatinin e [Mass ratio] 11.2 mg/mg Normal [facility] Comment on above: Performed By: #### C MP #### [facility] [address] [address] [address] Scarlett Dickey XR FOREARM LT 2 [...] CLARE CELAYA Date: 2022-09-12 06:33 Normal [facility] 07[facility]09 SARS-CoV-2 (COVID-19) RNA NATHAN+probe Ql (Unsp spec) Detected Critically abnormal NOT DETECTED [facility] Comment on above: Result Comment: This test is not yet approved or cleared by the [place] FDA. When there are no FDA-approved or cleared tests available, and other criteria are met, FDA can make tests available under an emergency access mechanism called an Emergency Use Authorization (EUA). The EUA for this test is supported by the Auto Body Technician of Health and Human Service's declaration that [...] longer be used). Performed By: #### [facility] #### [facility] [address] [address] [address] Scarlett Dickey XR CHEST 1 Von [...] FELIX KEY Date: 2022-08-01 21:16 Normal [facility] Encounters Encounter Date Encounter Type Care Provider Facility Start: 03-11-2023 Patient encounter procedure Da[facility] Start: 03-11-2023 End: 03-11-[address] ASHLEY LOVELACE [facility] [employer] Other Start: 12-16-2022 End: 12-16-[address] ANGELO KIM . Facility:[facility] Start: 09-12-2022 End: 09-12-[address] KILO MCKEON Facility:[facility] Start: 08-01-2022 End: 08-02-2022 ambulatory GOPI ESTEBAN Facility:[facility] Start: 06-07-2022 End: 06-07-2022 ambulatory EM NAILS Facility:[facility] Start: 04-08-2022 ambulatory EM NAILS Facility: [facility] Payers Date Payer Category Payer Unknown [id number] 2.16.84 [id number] 1989 Unknown [id number] 2.16.84 [id number] 1989 Unknown [id number] 2.16.84 [id number] 1989 Unknown [id number] 2.16.84 [id number] 1989 Unknown [id number] 2.16.84 [id number] 1989 Unknown [id number] 2.16.84 [id number] 1959 Private Health Insurance [id number] 1960 Self-pay [id number] Social History Date Type Detail Facility Sex Assigned At [employer] Other Evaluation note Note Date & Type Note Facility Evaluation note No Information [employer] Other Summary Purpose Family History No Family [...] BE BASED ON THE PRIMARY CLINICAL RECORDS. [facility] [employer] [facility]. provides no warranty or guarantee of the accuracy or completeness of information in this document.
[2024-03-14 04:07] LABS: Testosterone 257 ng/dL (264-916)
== END 2024-03-13 06:41 | disposition home or self-care (01) ==
LOC: LAB 06:41
PROVIDERS: PCP Nurse Practitioner Family; Visit Provider Nurse Practitioner Family
DX: E29.1 Testicular hypofunction (principal)
CPT/HCPCS: 36415; 84403

== ENCOUNTER 2024-06-18 14:05 | Emergency (ER) | payer OTHER, SELFPAY ==
[2024-06-18 14:12] VITALS: BP 153/98; PULSE 85; TEMP 36.9; O2SAT 98; BMI 56.6
--- NOTE | 2024-06-18 14:15 | ED.SKABFB1 ---
HPI - Skin/Abscess/Foreign Bdy General Stated complaint: ABDOMINAL PAIN Time Seen by Provider: 06/18/24 14:12 Source: patient Mode of arrival: walk-in Limitations: no limitations History of Present Illness HPI narrative: 34-year-old male presents for bleeding from his umbilicus. He thinks it is infected, he has had this issue before. This started within the last day. No fever or generalized abdominal pain or vomiting. There was no trauma. Related Data Home Medications ?Medication ?Instructions ?Recorded ?Confirmed amlodipine 5 mg tablet 5 mg PO DAILY 08/30/23 06/18/24 Previous Rx's ?Medication ?Instructions ?Recorded cephalexin 500 mg capsule 500 mg PO QID 10 days #40 caps 06/18/24 Allergies Allergy/AdvReac Type Severity Reaction Status Date / Time lisinopril Allergy Unknown Verified 02/28/24 06:00 Review of Systems ROS Narrative A ten point review of systems is negative except as noted above. PFSH PFSH Social History Smoking status: Never smoker Exam Narrative Exam Narrative: Nurses note and vital signs reviewed and patient is not hypoxic. General: The patient appears in no apparent distress. Patient is resting comfortably on the examination chair Skin: Warm, dry, no pallor noted. There is no rash noted. Head: Normocephalic, atraumatic Eye: Normal conjunctiva, no drainage Ears, Nose, Mouth, and Throat: oral mucosa is moist. Nares patent. Cardiovascular: Regular Rate and Rhythm Respiratory: Patient is in no distress, no accessory muscle use, lungs are clear to auscultation, no wheezing, rales or rhonchi GI: Obese soft and nontender. In the umbilicus there is some dried blood and some mild erythema. No abscess or purulent drainage Musculoskeletal: The patient has no evidence of calf tenderness, no pitting edema, symmetrical pulses noted bilaterally Neurological: A&O, normal speech Psychiatric: Cooperative Constitutional Vital Signs, click to edit/add: Last Vital Signs Temp 98.4 F 06/18/24 14:12 Pulse 85 06/18/24 14:12 Resp 18 06/18/24 14:12 BP 153/98 H 06/18/24 14:12 Pulse Ox 98 06/18/24 14:12 O2 Del Method Room Air 06/18/24 14:12 Course Vital Signs Vital signs: Vital Signs Temperature 98.4 F 06/18/24 14:12 Pulse Rate 85 06/18/24 14:12 Respiratory Rate 18 06/18/24 14:12 Blood Pressure 153/98 H 06/18/24 14:12 Pulse Oximetry 98 06/18/24 14:12 Oxygen Delivery Method Room Air 06/18/24 14:12 Temperature 98.4 F 06/18/24 14:12 Pulse Rate 85 06/18/24 14:12 Respiratory Rate 18 06/18/24 14:12 Blood Pressure 153/98 H 06/18/24 14:12 Pulse Oximetry 98 06/18/24 14:12 Oxygen Delivery Method Room Air 06/18/24 14:12 MDM - Skin/Abscess/Foreign Bdy MDM Narrative Medical decision making narrative: My clinical impression is that he has cellulitis and he is prescribed Keflex. I have no suspicion for an abscess. Treatment diagnosis and follow-up were discussed with the patient. Differential Diagnosis Differential diagnosis: Likely abscess of skin or subcutaneous tissue and cellulitis Discharge Plan Discharge Stand Alone Forms: Portal Instructions Clinical Impression: Cellulitis Patient Disposition: Home, Self-Care Time of Disposition Decision: 14:14 Condition: Good Mode of Transportation: Private Vehicle Prescriptions / Home Meds: New cephalexin 500 mg capsule 500 mg PO QID 10 Days Qty: 40 0RF No Action amlodipine 5 mg tablet 5 mg PO DAILY Print Language: Filipino Instructions: Cellulitis (ED) Referrals: EM NAILS [Primary Care Provider] - 1 week
--- OUTSIDE RECORDS SUMMARY | 2024-06-18 14:23 | XMS_ITS | CCD ---
Demographics Address [address] [place] [address] Preferred Language en Marital Status Single Restorationism Affiliation Unknown Race White Ethnic Group Not or Lati no Author Organization [facility] Care Team Providers Care Digital Commentator Name Role Phone Daisha Marks Unavailable JULIO ., DR STEPHENS Admitting Unavailable HAY ., DR STEPHENS Attending Unavailable HAY ., DR STEPHENS Consulting Unavailable [facility]ERLY [facility] Primary [facility] Unavailable ZIEBGERMAN, DR ASHLEY Molina Consulting Unavailable PAY ., DR BREAUX Admitting Unavailable PAY ., DR BREAUX Attending Unavailable [facility] Unavailable PAY ., DR BREAUX Consulting Unavailable JESU, EM Attending Unavailable [facility] Unavailable [facility] Admitting Un[facility] Unavailable LINDA, DR IKLO Molina Admitting Unavailable LINDA, DR KILO Molina Attending Unavailable LINDA, DR KILO Molina Consulting Unavailable GOPI ESTEBAN Admitting Unavailable GOPI ESTEBAN Attending Unavailable GOPI ESTEBAN Consulting Unavailable [facility] Unavailable FELIX KEY Consulting Unavailable LINDA, DR KILO Molina Admitting Unavailable LINDA, DR KILO Molina Attending Unavailable LINDA, DR KILO Molina Consulting [facility] Unavailable CLARE CELAYA Consulting Unavailable Allergies Allergy Classification Reported Allergen(s) Allergy Type Date of Onset Reaction(s) Facility (1 source) Amino Acids Drug Allergy 09-03-2021 [facility] Repository Problems Active Problems Problem Classification Problem Date Documented Da te Episodic/Chronic Essential hypertension (1 source) Essential (primary) hypertension; Translations: [ESSENTIAL PRIMARY HYPERTENSION] Onset: 03-15-2023 Chronic Other aftercare (1 source) Other intermission coordinator (current) drug therapy; Translations: [OTH INTERMEDIATE CURRENT DRUG THERAPY] Onset: 03-15-2023 Episodic Other [...] B (Bld) [Mass/Vol] 6.0 pg/mL Normal <=450.0 [facility] Comment on above: Performed By: #### B CECILIA, BNP #### [facility] [address] [place] [address] Dr. Scarlett Dickey PROF CHEM 8 (BAS METB)on Anion gap [Moles/Vol] 13.2 mmol/L Normal [facility] Comment on above: Performed By: #### B CECILIA, BNP #### [facility] [address] [place] [address] Dr. Scarlett Dickey Calcium [Mass/Vol] 8.4 mg/dL Critically low 8.5-10.1 [facility] Comment on above: Performed By: #### B CECILIA, BNP #### [facility] [address] [place] [address] Dr. Scarlett Dickey Chloride [Moles/Vol] 105 mmol/L Normal 98-107 [facility] Comment on above: Performed By: #### B MP, BNP #### [facility] [address] [place] [address] Dr. Scarlett Dickey CO2 [Moles/Vol] 28.9 mmol/L Normal 21.0-32.0 [facility] Comment on above: Performed By: #### B MP, BNP #### [facility] [address] [place] [address] Dr. Scarlett Dickey Creatinine [Mass/Vol] 1.04 mg/dL Normal 0.70-1.30 [facility] Comment on above: Performed By: #### B MP, BNP #### [facility] [address] [place] [address] Dr. Scarlett Dickey EGFR-AF NEW ZEALANDER >60 Normal >=60 [facility] Comment on above: Performed By: #### B MP, BNP #### [facility] [address] [address] [address] Scarlett Dickey EGFR-NON AF NEW ZEALANDER >60 Normal >=60 [facility] Comment on above: Performed By: #### B MP, BNP #### [facility] [address] [address] [address] Scarlett Dickey Glucose [Mass/Vol] 147 mg/dL Critically high 74-106 [facility] Comment on above: Performed By: #### B MP, BNP #### [facility] [address] [place] [address] Dr. Scarlett Dickey Potassium [Moles/Vol] 4.1 mmol/L Normal 3.5-5.1 [facility] Comment on above: Performed By: #### B MP, BNP #### [facility] [address] [address] [address] Scarlett Dickey Sodium [Moles/Vol] 143 mmol/L Normal 136-145 [facility] Comment on above: Performed By: #### B MP, BNP #### [facility] [address] [place] [address] Dr. Scarlett Dickey Urea nitrogen [Mass/Vol] 14.0 mg/dL Normal 7.0-18.0 [facility] Comment on above: Performed By: #### B MP, BNP #### [facility] [address] [place] [address] Dr. Scarlett Dickey Urea nitrogen/Creatinin e [Mass ratio] 13.5 mg/mg Normal [facility] Comment on above: Performed By: #### B MP, BNP #### [facility] [address] [place] [address] Dr. Scarlett Dickey US EDD DOP LEG [...] ASHLEY LOVELACE Date: 2023-03-11 11:54 Normal [facility] CBC AUTO DIFFon 09-12-2022 BASO # 0.0 103/ul Normal 0.0-0.1 [facility] Comment on above: Performed By: #### C BC #### [facility] [address] [address] [address] Scarlett Dickey Basophils/100 WBC (Bld) 0.6 % Normal 0.2-2.0 [facility] Comment on above: Performed By: #### C BC #### [facility] [address] [place] [address] Dr. Scarlett Dickey EO # 0.2 103/ul Normal 0.0-0.7 [facility] Comment on above: Performed By: #### C BC #### [facility] [address] [address] [address] Scarlett Dickey Eosinophils/100 WBC (Bld) 5.0 % Normal 0.9-7.0 [facility] Comment on above: Performed By: #### C BC #### [facility] [address] [place] [address] Dr. Scarlett Dickey Erythrocyte distribution width (RBC) [Ratio] 13.6 % Normal 11.0-15.0 [facility] Comment on above: Performed By: #### C BC #### [facility] [address] [place] [address] Dr. Scarlett Dickey Hematocrit (Bld) [Volume fraction] 41.7 % Critically low 42.0-54.0 [facility] Comment on above: Performed By: #### C BC #### [facility] [address] [place] [address] Dr. Scarlett Dickey Hemoglobin (Bld) [Mass/Vol] 13.4 g/dL Critically low 14.0-18.0 [facility] Comment on above: Performed By: #### C BC #### [facility] [address] [place] [address] Dr. Scarlett Dickey IG # 0.00 10e3/ul Normal 0.00-0.03 [facility] Comment on above: Performed By: #### C BC #### [facility] [address] [place] [address] Dr. Scarlett Dickey IG % 0.0 % Normal 0.0-0.5 [facility] Comment on above: Performed By: #### C BC #### [facility] [address] [place] [address] Dr. Scarlett Dickey LYMPH # 1.2 103/ul Normal 1.2-3.8 [facility] Comment on above: Performed By: #### C BC #### [facility] [address] [place] [address] Dr. Scarlett Dickey Lymphocytes/100 WBC (Bld) 34.2 % Normal 20.5-60.0 [facility] Comment on above: Performed By: #### C BC #### [facility] [address] [place] [address] Dr. Scarlett Dickey MANUAL DIFF REQ NO Normal [facility] Comment on above: Performed By: #### C BC #### [facility] [address] [place] [address] Dr. Scarlett Dickey MCH (RBC) [Entitic mass] 28.6 pg Normal 25.9-34.0 [facility] Comment on above: Performed By: #### C BC #### [facility] [address] [place] [address] Dr. Scarlett Dickey MCHC (RBC) [Mass/Vol] 32.1 g/dL Normal 29.9-35.2 [facility] Comment on above: Performed By: #### C BC #### [facility] [address] [place] [address] Dr. Scarlett Dickey MCV (RBC) [Entitic vol] 88.9 fL Normal 80.0-94.0 [facility] Comment on above: Performed By: #### C BC #### [facility] [address] [place] [address] Dr. Scarlett Dickey MONO # 0.5 103/ul Normal 0.3-0.8 [facility] Comment on above: Performed By: #### C BC #### [facility] [address] [place] [address] Dr. Scarlett Dickey Monocytes/100 WBC (Bld) 13.6 % Critically high 1.7-12.0 [facility] Comment on above: Performed By: #### C BC #### [facility] [address] [place] [address] Dr. Scarlett Dickey NEUT # 1.7 103/ul Normal 1.4-6.5 [facility] Comment on above: Performed By: #### C BC #### [facility] [address] [place] [address] Dr. Scarlett Dickey Neutrophils/100 WBC (Bld) 46.6 % Normal 43.0-75.0 [facility] Comment on above: Performed By: #### C BC #### [facility] [address] [place] [address] Dr. Scarlett Dickey Platelet mean volume (Bld) [Entitic vol] 9.8 fL Normal 9.5-13.5 [facility] Comment on above: Performed By: #### C BC #### [facility] [address] [place] [address] Dr. Scarlett Dickey PLT 262 103/ul Normal 150-450 [facility] Comment on above: Performed By: #### C BC #### [facility] [address] [place] [address] Dr. Scarlett Dickey RBC 4.69 106/ul Critically low 4.70-6.10 [facility] Comment on above: Performed By: #### C BC #### [facility] [address] [place] [address] Dr. Scarlett Dickey WBC 3.6 103/ul Critically low 4.0-11.0 [facility] Comment on above: Performed By: #### C BC #### [facility] [address] [place] [address] Dr. Scarlett Dickey D-DIMERon 09-12-2022 D-DIMER 0.43 mg/L FEU Normal <=0.59 [facility] Comment on above: Performed By: #### D DIM #### [facility] [address] [place] [address] Dr. Scarltet Dickey D-DIMER COMMENTS SEE BELOW Normal [facility] Comment on above: Result Comment: Incr eases [...] hospitalization. Performed By: #### D DIM #### [facility] [address] [place] [address] Dr. Scarlett Dickey PROF 14(COMP METB)on 022 Albumin [Mass/Vol] 3.5 g/dL Normal 3.4-5.0 [facility] Comment on above: Performed By: #### C MP #### [facility] [address] [place] [address] Dr. Scarlett Dickey Albumin/Globulin [Mass ratio] 1.0 {ratio} Normal [facility] Comment on above: Performed By: #### C MP #### [facility] [address] [place] [address] Dr. Scarlett Dickey ALP [Catalytic activity/Vol] 63 U/L Normal 46-116 [facility] Comment on above: Performed By: #### C MP #### [facility] [address] [place] [address] Dr. Scarlett Dickey ALT [Catalytic activity/Vol] 32 U/L Normal 16-63 [facility] Comment on above: Performed By: #### C MP #### [facility] [address] [place] [address] Dr. Scarlett Dickey Anion gap [Moles/Vol] 6.0 mmol/L Normal [facility] Comment on above: Performed By: #### C MP #### [facility] [address] [place], [place] [id number] Dr. Scarlett Dickey AST [Catalytic activity/Vol] 12 U/L Critically low 15-37 [facility] Comment on above: Performed By: #### C MP #### [facility] [address] [address] [address] Scarlett Dickey Bilirubin [Mass/Vol] 0.4 mg/dL Normal 0.2-1.0 [facility] Comment on above: Performed By: #### C MP #### [facility] [address] [address] [address] Scarlett Dickey Calcium [Mass/Vol] 8.3 mg/dL Critically low 8.5-10.1 [facility] Comment on above: Performed By: #### C MP #### [facility] [address] [place] [address] Dr. Scarlett Dickey Chloride [Moles/Vol] 105 mmol/L Normal 98-107 [facility] Comment on above: Performed By: #### C MP #### [facility] [address] [place] [address] Dr. Scarlett Dickey CO2 [Moles/Vol] 31.1 mmol/L Normal 21.0-32.0 [facility] Comment on above: Performed By: #### C MP #### [facility] [address] [place] [address] Dr. Scarlett Dickey Creatinine [Mass/Vol] 0.80 mg/dL Normal 0.70-1.30 [facility] Comment on above: Performed By: #### C MP #### [facility] [address] [place] [address] Dr. Scarlett Dickey EGFR-AF NEW ZEALANDER >60 Normal >=60 [facility] Comment on above: Performed By: #### C MP #### [facility] [address] [place] [address] Dr. Scarlett Dickey EGFR-NON AF NEW ZEALANDER >60 Normal >=60 [facility] Comment on above: Performed By: #### C MP #### [facility] [address] [place] [address] Dr. Scarlett Dickey Globulin (S) [Mass/Vol] 3.4 g/dL Normal [facility] Comment on above: Performed By: #### C MP #### [facility] [address] [address] [address] Scarlett Dickey Glucose [Mass/Vol] 103 mg/dL Normal 74-106 [facility] Comment on above: Performed By: #### C MP #### [facility] [address] [address] [address] Scarlett Dickey Potassium [Moles/Vol] 4.1 mmol/L Normal 3.5-5.1 [facility] Comment on above: Performed By: #### C MP #### [facility] [address] [address] [address] Scarlett Dickey Protein [Mass/Vol] 6.9 g/dL Normal 6.4-8.2 [facility] Comment on above: Performed By: #### C MP #### [facility] [address] [address] [address] Scarlett Dickey Sodium [Moles/Vol] 138 mmol/L Normal 136-145 [facility] Comment on above: Performed By: #### C MP #### [facility] [address] [address] [address] Scarlett Dickey Urea nitrogen [Mass/Vol] 9.0 mg/dL Normal 7.0-18.0 [facility] Comment on above: Performed By: #### C MP #### [facility] [address] [address] [address] Scarlett Dickey Urea nitrogen/Creatinin e [Mass ratio] 11.2 mg/mg Normal [facility] Comment on above: Performed By: #### C MP #### [facility] [address] [address] [address] Scarlett Dickey XR FOREARM LT 2 [...] CLARE CELAYA Date: 2022-09-12 06:33 Normal [facility]on 07-09 SARS-CoV-2 (COVID-19) RNA NATHAN+probe Ql (Unsp spec) Detected Critically abnormal NOT DETECTED [facility] Comment on above: Result Comment: This test is not yet approved or cleared by the [place] FDA. When there are no FDA-approved or cleared tests available, and other criteria are met, FDA can make tests available under an emergency access mechanism called an Emergency Use Authorization (EUA). The EUA for this test is supported by the Financial Assistance Advisor of Health and Human Service's declaration that [...] longer be used). Performed By: #### [facility] #### [facility] [address] [address] [address] Scarlett Dickey XR CHEST 1 Von [...] FELIX KEY Date: 2022-08-01 21:16 Normal [facility] Encounters Encounter Date Encounter Type Care Provider Facility Start: 03-11-2023 Patient encounter procedure [facility] Start: 03-11-2023 End: 03-11-[address] ASHLEY LOVELACE [facility] Other Start: 12-16-2022 End: 12-16-[address] ANGELO KIM . Facility:[facility] Start: 09-12-2022 End: 09-12-[address] KILO MCKEON Facility:[facility] Start: 08-01-2022 End: 08-02-2022 ambulatory GOPIKRYSTYNA ESTEBAN Facility:[facility] Start: 06-07-2022 End: 06-07-2022 ambulatory EM NAILS Facility:[facility] Start: 04-08-2022 ambulatory EM NAILS Facility: [facility] Payers Date Payer Category Payer Unknown [id number] 2.16.84 [id number] 1989 Unknown [id number] 2.16.84 [id number] 1989 Unknown [id number] 2.16.84 [id number] 1989 Unknown [id number] 2.16.84 [id number] 1989 Unknown [id number] 2.16.84 [id number] 1989 Unknown [id number] 2.16.84 [id number] 1959 Private Health Insurance [id number] 1960 Self-pay [id number] Social History Date Type Detail Facility Sex Assigned At [facility] Other Evaluation note Note Date & Type Note Facility Evaluation note No Information [facility] [employer] Other Summary Purpose Family History No Family [...] BE BASED ON THE PRIMARY CLINICAL RECORDS. [facility] [employer] [facility]. provides no warranty or guarantee of the accuracy or completeness of information in this document.
[2024-06-18] MEDS: BACITRACIN OINTMENT 28.4 GM TUBE 1 APPLIC TOPICAL (14:34)
== END 2024-06-18 14:36 | disposition home or self-care (01) ==
PROVIDERS: Emergency Provider Emergency Medicine; PCP Nurse Practitioner Family
DX: L03.315 Cellulitis of perineum (principal); E66.9 Obesity, unspecified; Z68.43 Body mass index [BMI] 50.0-59.9, adult
CPT/HCPCS: 99282

== ENCOUNTER 2024-12-04 00:49 | Emergency (ER) | payer OTHER, SELFPAY ==
[2024-12-04 00:53] VITALS: BP 151/100; PULSE 105; TEMP 36.7; O2SAT 98; BMI 51.5
--- OUTSIDE RECORDS SUMMARY | 2024-12-04 00:55 | XMS_ITS | CCD ---
Demographics Address [address] [place] [address] Preferred Language en Marital Status Single Buddhist Affiliation Unknown Race White Ethnic Group Not or Lati no Author Organization [facility] Care Team Providers Care Java Android Developer Name Role Phone Daisha Marks Unavailable JULIO ., DR STEPHENS Admitting Unavailable HAY ., DR STEPHENS Attending Unavailable HAY ., DR STEPHENS Consulting Unavailable [facility] Primary [facility] Unavailable ZIEBGERMAN, DR ASHLEY Molina Consulting Unavailable PAY ., DR BREAUX Admitting Unavailable PAY ., DR BREAUX Attending Unavailable [facility] Unavailable PAY ., DR BREAUX Consulting Unavailable JESU, EM Attending Unavailable [facility] Unavailable LINDA, DR KILO Molian Admitting Unavailable LINDA, DR KILO Molina Attending Unavailable LINDA, DR KILO Molina Consulting Unavailable GOPI ESTEBAN Admitting Unavailable GOPI ESTEBAN Attending Unavailable GOIP ESTEBAN Consulting [facility] Unavailable FELIX KEY Consulting Unavailable LINDA, DR KILO Molina Admitting Unavailable LINDA, DR KILO Molina Attending Unavailable LINDA, DR KILO Molina Consulting Un[facility] Unavailable CLARE CELAYA Consulting Unavailable Allergies Allergy Classification Reported Allergen(s) Allergy Type Date of Onset Reaction(s) Facility (1 source) Amino Acids Drug Allergy 09-03-2021 [facility] Repository Problems Active Problems Problem Classification Problem Date Documented Da te Episodic/Chronic Essential hypertension (1 source) Essential (primary) hypertension; Translations: [ESSENTIAL PRIMARY HYPERTENSION] Onset: 03-15-2023 Chronic Other aftercare (1 source) 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 Scarlett Dickey PROF CHEM 8 (BAS METB)on Anion gap [Moles/Vol] 13.2 mmol/L Normal [facility] Comment on above: Performed By: #### B CECILIA, BNP #### [facility] [address] [place] [address] Dr. Scarlett Dickey Calcium [Mass/Vol] 8.4 mg/dL Critically low 8.5-10.1 [facility] Comment on above: Performed By: #### B CECILIA, BNP #### [facility] [address] [place] [address] Dr. Scarlett Dickey Chloride [Moles/Vol] 105 mmol/L Normal 98-107 [facility] Comment on above: Performed By: #### B MP, BNP #### [facility] [address] [place] [address] Dr. Scarlett Dickey CO2 [Moles/Vol] 28.9 mmol/L Normal 21.0-32.0 [facility] Comment on above: Performed By: #### B MP, BNP #### [facility] [address] [place] [address] Dr. Scarlett Dickey Creatinine [Mass/Vol] 1.04 mg/dL Normal 0.70-1.30 [facility] Comment on above: Performed By: #### B MP, BNP #### [facility] [address] [place] [address] Dr. Scarlett Dickey EGFR-AF DANISH >60 Normal >=60 [facility] Comment on above: Performed By: #### B MP, BNP #### [facility] [address] [address] [address] Scarlett Dickey EGFR-NON AF DANISH >60 Normal >=60 [facility] Comment on above: Performed By: #### B MP, BNP #### [facility] [address] [address] [address] Scarlett Dickey Glucose [Mass/Vol] 147 mg/dL Critically high 74-106 [facility] Comment on above: Performed By: #### B MP, BNP #### [facility] [address] [place] [address] Dr. Scarlett Dickey Potassium [Moles/Vol] 4.1 mmol/L Normal 3.5-5.1 [facility] Comment on above: Performed By: #### B MP, BNP #### [facility] [address] [address] [address] Scarlett Dickey Sodium [Moles/Vol] 143 mmol/L Normal 136-145 [facility] Comment on above: Performed By: #### B MP, BNP #### [facility] [address] [place] [address] Dr. Scarlett Dickey Urea nitrogen [Mass/Vol] 14.0 mg/dL Normal 7.0-18.0 [facility] Comment on above: Performed By: #### B MP, BNP #### [facility] [address] [place] [address] Dr. Scarlett Dickey Urea nitrogen/Creatinin e [Mass ratio] 13.5 mg/mg Normal [facility] Comment on above: Performed By: #### B MP, BNP #### [facility] [address] [place] [address] Dr. Scarlett Dickey US EDD DOP LEG [...] ASHLEY LOVELACE Date: 2023-03-11 11:54 Normal [facility] CBC AUTO DIFFon 09-12-2022 BASO # 0.0 103/ul Normal 0.0-0.1 [facility] Comment on above: Performed By: #### C BC #### [facility] [address] [address] [address] Scarlett Dickey Basophils/100 WBC (Bld) 0.6 % Normal 0.2-2.0 [facility] Comment on above: Performed By: #### C BC #### [facility] [address] [place] [address] Dr. Scarlett Dickey EO # 0.2 103/ul Normal 0.0-0.7 [facility] Comment on above: Performed By: #### C BC #### [facility] [address] [address] [address] Scarlett Dickey Eosinophils/100 WBC (Bld) 5.0 % Normal 0.9-7.0 [facility] Comment on above: Performed By: #### C BC #### [facility] [address] [place] [address] Dr. Scarlett Dickey Erythrocyte distribution width (RBC) [Ratio] 13.6 % Normal 11.0-15.0 [facility] Comment on above: Performed By: #### C BC #### [facility] [address] [place] [address] Dr. Scarlett Dickey Hematocrit (Bld) [Volume fraction] 41.7 % Critically low 42.0-54.0 [facility] Comment on above: Performed By: #### C BC #### [facility] [address] [place] [address] Dr. Scarlett Dickey Hemoglobin (Bld) [Mass/Vol] 13.4 g/dL Critically low 14.0-18.0 [facility] Comment on above: Performed By: #### C BC #### [facility] [address] [place] [address] Dr. Scarlett Dickey IG # 0.00 10e3/ul Normal 0.00-0.03 [facility] Comment on above: Performed By: #### C BC #### [facility] [address] [place] [address] Dr. Scarlett Dickey IG % 0.0 % Normal 0.0-0.5 [facility] Comment on above: Performed By: #### C BC #### [facility] [address] [place] [address] Dr. Scarlett Dickey LYMPH # 1.2 103/ul Normal 1.2-3.8 [facility] Comment on above: Performed By: #### C BC #### [facility] [address] [place] [address] Dr. Scarlett Dickey Lymphocytes/100 WBC (Bld) 34.2 % Normal 20.5-60.0 [facility] Comment on above: Performed By: #### C BC #### [facility] [address] [place] [address] Dr. Scarlett Dickey MANUAL DIFF REQ NO Normal [facility] Comment on above: Performed By: #### C BC #### [facility] [address] [place] [address] Dr. Scarlett Dickey MCH (RBC) [Entitic mass] 28.6 pg Normal 25.9-34.0 [facility] Comment on above: Performed By: #### C BC #### [facility] [address] [place] [address] Dr. Scarlett Dickey MCHC (RBC) [Mass/Vol] 32.1 g/dL Normal 29.9-35.2 [facility] Comment on above: Performed By: #### C BC #### [facility] [address] [place] [address] Dr. Scarlett Dickey MCV (RBC) [Entitic vol] 88.9 fL Normal 80.0-94.0 [facility] Comment on above: Performed By: #### C BC #### [facility] [address] [place] [address] Dr. Scarlett Dickey MONO # 0.5 103/ul Normal 0.3-0.8 [facility] Comment on above: Performed By: #### C BC #### [facility] [address] [place] [address] Dr. Scarlett Dickey Monocytes/100 WBC (Bld) 13.6 % Critically high 1.7-12.0 [facility] Comment on above: Performed By: #### C BC #### [facility] [address] [place] [address] Dr. Scarlett Dickey NEUT # 1.7 103/ul Normal 1.4-6.5 [facility] Comment on above: Performed By: #### C BC #### [facility] [address] [place] [address] Dr. Scarlett Dickey Neutrophils/100 WBC (Bld) 46.6 % Normal 43.0-75.0 [facility] Comment on above: Performed By: #### C BC #### [facility] [address] [place] [address] Dr. Scarlett Dickey Platelet mean volume (Bld) [Entitic vol] 9.8 fL Normal 9.5-13.5 [facility] Comment on above: Performed By: #### C BC #### [facility] [address] [place] [address] Dr. Scarlett Dickey PLT 262 103/ul Normal 150-450 [facility] Comment on above: Performed By: #### C BC #### [facility] [address] [place] [address] Dr. Scarlett Dickey RBC 4.69 106/ul Critically low 4.70-6.10 [facility] Comment on above: Performed By: #### C BC #### [facility] [address] [place] [address] Dr. Scarlett Dickey WBC 3.6 103/ul Critically low 4.0-11.0 [facility] Comment on above: Performed By: #### C BC #### [facility] [address] [place] [address] Dr. Scarlett Dickey D-DIMERon 09-12-2022 D-DIMER 0.43 mg/L FEU Normal <=0.59 [facility] Comment on above: Performed By: #### D DIM #### [facility] [address] [place] [address] Dr. Scarlett Dickey D-DIMER COMMENTS SEE BELOW Normal [facility] Comment on above: Result Comment: Incr [...] hospitalization. Performed By: #### D DIM #### [facility] [address] [place] [address] Dr. Scarlett Dickey PROF 14(COMP METB)on 022 Albumin [Mass/Vol] 3.5 g/dL Normal 3.4-5.0 [facility] Comment on above: Performed By: #### C MP #### [facility] [address] [place] [address] Dr. Scarlett Dickey Albumin/Globulin [Mass ratio] 1.0 {ratio} Normal [facility] Comment on above: Performed By: #### C MP #### [facility] [address] [place] [address] Dr. Scarlett Dickey ALP [Catalytic activity/Vol] 63 U/L Normal 46-116 [facility] Comment on above: Performed By: #### C MP #### [facility] [address] [place] [address] Dr. Scarlett Dickey ALT [Catalytic activity/Vol] 32 U/L Normal 16-63 [facility] Comment on above: Performed By: #### C MP #### [facility] [address] [place] [address] Dr. Scarlett Dickey Anion gap [Moles/Vol] 6.0 mmol/L Normal [facility] Comment on above: Performed By: #### C MP #### [facility] [address] [place], [place] [id number] Dr. Scarlett Dickey AST [Catalytic activity/Vol] 12 U/L Critically low 15-37 [facility] Comment on above: Performed By: #### C MP #### [facility] [address] [address] [address] Scarlett Dickey Bilirubin [Mass/Vol] 0.4 mg/dL Normal 0.2-1.0 [facility] Comment on above: Performed By: #### C MP #### [facility] [address] [address] [address] Scarlett Dickey Calcium [Mass/Vol] 8.3 mg/dL Critically low 8.5-10.1 [facility] Comment on above: Performed By: #### C MP #### [facility] [address] [place] [address] Dr. Scarlett Dickey Chloride [Moles/Vol] 105 mmol/L Normal 98-107 [facility] Comment on above: Performed By: #### C MP #### [facility] [address] [place] [address] Dr. Scarlett Dickey CO2 [Moles/Vol] 31.1 mmol/L Normal 21.0-32.0 [facility] Comment on above: Performed By: #### C MP #### [facility] [address] [place] [address] Dr. Scarlett Dickey Creatinine [Mass/Vol] 0.80 mg/dL Normal 0.70-1.30 [facility] Comment on above: Performed By: #### C MP #### [facility] [address] [place] [address] Dr. Scarlett Dickey EGFR-AF DANISH >60 Normal >=60 [facility] Comment on above: Performed By: #### C MP #### [facility] [address] [place] [address] Dr. Scarlett Dickey EGFR-NON AF DANISH >60 Normal >=60 [facility] Comment on above: Performed By: #### C MP #### [facility] [address] [place] [address] Dr. Scarlett Dickey Globulin (S) [Mass/Vol] 3.4 g/dL Normal [facility] Comment on above: Performed By: #### C MP #### [facility] [address] [address] [address] Scarlett Dickey Glucose [Mass/Vol] 103 mg/dL Normal 74-106 [facility] Comment on above: Performed By: #### C MP #### [facility] [address] [address] [address] Scarlett Dickey Potassium [Moles/Vol] 4.1 mmol/L Normal 3.5-5.1 [facility] Comment on above: Performed By: #### C MP #### [facility] [address] [address] [address] Scarlett Dickey Protein [Mass/Vol] 6.9 g/dL Normal 6.4-8.[address] [facility] Comment on above: Performed By: #### C MP #### [facility] [address] [address] [address] Scarlett Dickey Sodium [Moles/Vol] 138 mmol/L Normal 136-145 [facility] Comment on above: Performed By: #### C MP #### [facility] [address] [address] [address] Scarlett Dickey Urea nitrogen [Mass/Vol] 9.0 mg/dL Normal 7.0-18.0 [facility] Comment on above: Performed By: #### C MP #### [facility] [address] [address] [address] Scarlett Dickey Urea nitrogen/Creatinin e [Mass ratio] 11.2 mg/mg Normal [facility] Comment on above: Performed By: #### C MP #### [facility] [address] [address] [address] Scarlett Dickey XR FOREARM LT 2 [...] CLARE CELAYA Date: 2022-09-12 06:33 Normal [facility] 07[facility]09 SARS-CoV-2 (COVID-19) RNA NATHAN+probe Ql (Unsp spec) Detected Critically abnormal NOT DETECTED [facility] Comment on above: Result Comment: This test is not yet approved or cleared by the [place] FDA. When there are no FDA-approved or cleared tests available, and other criteria are met, FDA can make tests available under an emergency access mechanism called an Emergency Use Authorization (EUA). The EUA for this test is supported by the [employer] of Health and Human Service's declaration that [...] longer be used). Performed By: #### [facility] #### [facility] [address] [address] [address] Scarlett Dickey XR CHEST 1 Von [...] FELIX KEY Date: 2022-08-01 21:16 Normal [facility] Encounters Encounter Date Encounter Type Care Provider Facility Start: 03-11-2023 Patient encounter procedure [facility] Start: 03-11-2023 End: 03-11-[address] [facility] [employer] Other Start: 12-16-2022 End: 12-16-[address] ANGELO KIM . Facility:[facility] Start: 09-12-2022 End: 09-12-[address] KILO MCKEON Facility:[facility] Start: 08-01-2022 End: 08-02-2022 ambulatory GOPIKRYSTYNA ESTEBAN Facility:[facility] Start: 06-07-2022 End: 06-07-2022 ambulatory EM NAILS Facility:[facility] Start: 04-08-2022 ambulatory EM NAILS Facility: [facility] Payers Date Payer Category Payer Unknown [id number] 2.16.84 [id number] 1989 Unknown [id number] [id number] [id number] 1989 Unknown [id number] 2.16.84 [id number] 1989 Unknown [id number] 2.16.84 [id number] 1989 Unknown [id number] 2.16.84 [id number] 1989 Unknown [id number] 2.16.84 [id number] 1959 Private Health Insurance [id number] 1960 Self-pay [id number] Social History Date Type Detail Facility Sex Assigned [employer] Other Evaluation note Note Date & Type Note Facility Evaluation note No Information [facility] [employer] Other Summary Purpose Family History No Family [...] BE BASED ON THE PRIMARY CLINICAL RECORDS. [facility] [email or web address]. [email or web address]. provides no warranty or guarantee of the accuracy or completeness of information in this document.
--- NOTE | 2024-12-04 01:05 | PC.NURSE ---
Patient with c/o itching of penis, worse with urination and in the morning. He thinks he has a UTI also c/o increased urinary frequency Denies chance of STI
[2024-12-04 01:12] LABS: Bilirubin Urine NEGATIVE (NEGATIVE); Blood Urine SMALL (NEGATIVE); Clarity Urine CLEAR (CLEAR); Color Urine YELLOW (YELLOW); Glucose Urine UA NEGATIVE (NEGATIVE); Ketones Urine NEGATIVE (NEGATIVE); Leukocyte Esterase Urine SMALL (NEGATIVE); Nitrite Urine NEGATIVE (NEGATIVE); Protein Urine NEGATIVE (NEG/TRACE); Specific Gravity Urine >=1.030 (1.005-1.025)
[2024-12-04 01:22] LABS: Bacteria Urine TRACE #/HPF (NONE SEEN); Cast Seen? NONE SEEN #/LPF (NONE SEEN); Crystals Seen? None Seen #/HPF (None Seen); Mucus Urine SMALL (NONE SEEN); Squamous Epithelial Cell Urine NONE SEEN #/LPF (NONE/RARE); Transitional Epi Cells Urine RARE #/LPF (NONE SEEN); Urine Culture Indicated YES
[2024-12-04] MEDS: CEPHALEXIN 500 MG CAPSULE PO (01:50)
[2024-12-04 01:51] VITALS: BP 151/111
[2024-12-04] MEDS: AMLODIPINE BESYLATE 5 MG TABLET PO (01:51)
--- NOTE | 2024-12-04 01:57 | ED.GENADUL1 ---
HPI HPI - General Adult General Chief complaint: Urogenital-Male Stated complaint: LOWER ABDOMINAL PAIN Time Seen by Provider: 12/04/24 01:00 Source: patient Mode of arrival: walk-in Limitations: no limitations History of Present Illness HPI narrative: 34-year-old male to the emergency department with chief complaint of several days of dysuria, urgency, frequency. He denies any fever, sweats, chills. No flank pain. No abdominal pain. He denies concern for STD. Related Data Home Medications ?Medication ?Instructions ?Recorded ?Confirmed amlodipine 5 mg tablet 5 mg PO DAILY 08/30/23 12/04/24 Previous Rx's ?Medication ?Instructions ?Recorded cephalexin 500 mg capsule 500 mg PO BID 5 days #10 caps 12/04/24 Allergies Allergy/AdvReac Type Severity Reaction Status Date / Time lisinopril Allergy Unknown Unknown Verified 12/04/24 00:58 Opioid HPI Opioid Management Most Recent Opioid Data: No Data to Display Review of Systems ROS Status of ROS 10 or more systems reviewed and unremarkable except as noted in history and below PFSH PFSH Social History Smoking status: Never smoker Little interest or pleasure in doing things: not at all Feeling down, depressed, or hopeless: not at all Exam Narrative Exam Narrative: VITALS: I have reviewed the triage vital signs. GENERAL: Well developed, well appearing adult in no acute distress. NEURO: Alert and oriented. Moves all extremities. Face is symmetric and expressive. EYES: PERRL. No scleral icterus or conjunctival injection. No discharge. HENT: Normocephalic, atraumatic. Hearing is grossly intact. Nares grossly patent and without discharge. Mucous membranes moist. NECK: No JVD. Patient moves neck without restriction. GI/: Abdomen is soft and non-tender. Normoactive bowel sounds. EXTREMITIES: Symmetric muscle bulk. No joint swelling. No clubbing, cyanosis, or deformity. SKIN: Warm and dry. Normal turgor. No rash or lesions appreciated. PSYCH: Mood, affect, and interaction is appropriate to the setting. Constitutional Vital Signs, click to edit/add: Last Vital Signs Temp 98.0 F 12/04/24 00:53 Pulse 105 H 12/04/24 00:53 Resp 18 12/04/24 00:53 BP 151/111 H 12/04/24 01:51 Pulse Ox 98 12/04/24 00:53 O2 Del Method Room Air 12/04/24 00:53 Course Vital Signs Vital signs: Vital Signs Temperature 98.0 F 12/04/24 00:53 Pulse Rate 105 H 12/04/24 00:53 Respiratory Rate 18 12/04/24 00:53 Blood Pressure 151/100 H 12/04/24 00:53 Pulse Oximetry 98 12/04/24 00:53 Oxygen Delivery Method Room Air 12/04/24 00:53 Temperature 98.0 F 12/04/24 00:53 Pulse Rate 105 H 12/04/24 00:53 Respiratory Rate 18 12/04/24 00:53 Blood Pressure 151/111 H 12/04/24 01:51 Pulse Oximetry 98 12/04/24 00:53 Oxygen Delivery Method Room Air 12/04/24 00:53 Medical Decision Making MDM Narrative Medical decision making narrative: Well-appearing adult male to the emergency department with dysuria, urgency, frequency. Vital stable, the patient is afebrile. He declines exam. Urinalysis equivocal for UTI. Will cover with Keflex. Culture sent. Return precautions were discussed. All questions were answered. Patient was discharged home. Lab Data Lab results reviewed: Yes I reviewed the patient's lab results Labs: Lab Results 12/04/24 Range/Units 01:07 Urine Color Yellow (YELLOW) Urine Clarity Clear (CLEAR) Urine pH 6.0 (5.0-9.0) Ur Specific [place] >=1.030 A (1.005-1.025) Urine Protein Negative (NEG/TRACE) mg/dL Urine Glucose (UA) Negative (NEGATIVE) mg/dL Urine Ketones Negative (NEGATIVE) mg/dL Urine Occult Blood Small A (NEGATIVE) Urine Nitrite Negative (NEGATIVE) Urine Bilirubin Negative (NEGATIVE) Urine Urobilinogen 1.0 (0.2-1.0) EU/dL Ur Leukocyte Esterase Small A (NEGATIVE) Urine RBC 5-10 A (0-2) #/HPF Urine WBC 10-20 A (NONE SEEN) #/HPF Ur Squamous Epith Cells None seen (NONE/RARE) #/LPF Ur Transition Epith Cell Rare A (NONE SEEN) #/LPF Urine Crystals None seen (None Seen) #/HPF Urine Bacteria Trace A (NONE SEEN) #/HPF Urine Casts None seen (NONE SEEN) #/LPF Urine Mucus Small A (NONE SEEN) Ur Culture Indicated? Yes Discharge Plan Discharge Chief Complaint: Urogenital-Male Clinical Impression: Urinary tract infection Patient Disposition: Home, Self-Care Time of Disposition Decision: 01:40 Condition: Good Mode of Transportation: Private Vehicle Prescriptions / Home Meds: New cephalexin 500 mg capsule 500 mg PO BID 5 Days Qty: 10 0RF No Action amlodipine 5 mg tablet 5 mg PO DAILY Print Language: Indonesian Instructions: Urinary Tract Infection in Men (DC) Additional Instructions: Call the office of your primary care doctor to arrange for follow-up within the above-stated timeframe. Your ED visit was focused on your acute issue and does not replace primary care. You should review your labs, imaging, and diagnoses from this ED visit with your primary care physician. There may be non-emergent/ incidental findings that need further evaluation. You should review your vital signs including blood pressure with your PCP. If you were prescribed medications you should discuss possible side-effects and drug interactions with your pharmacist. Call 911 or go to the nearest Emergency Department if you develop any new or worsening symptoms. Seek immediate medical attention if you develop: worsening abdominal pain, new or worsening nausea, new or worsening vomiting, new or worsening diarrhea, chest pain, shortness of breath, pain with urination, problems urinating, fever, chills, weakness, or any new or worsening symptoms. Referrals: EM NAILS [Primary Care Provider] - 1 week
[2024-12-05 22:06] LABS: Neisseria gonorrhoeae, NAA Negative (Negative)
== END 2024-12-04 01:59 | disposition home or self-care (01) ==
PROVIDERS: Emergency Provider Student in an Organized Health Care Education/Training Program; PCP Nurse Practitioner Family
DX: N39.0 Urinary tract infection, site not specified (principal)
CPT/HCPCS: 81001; 87086; 87150; 87186; 87491; 87591; 99283

== ENCOUNTER 2024-12-09 03:02 | Emergency (ER) | payer OTHER, SELFPAY ==
[2024-12-09 03:06] VITALS: BP 169/126; PULSE 115; TEMP 37.4; O2SAT 97; BMI 40.7
--- OUTSIDE RECORDS SUMMARY | 2024-12-09 03:08 | XMS_ITS | CCD ---
Demographics Address [address] [place] [address] Preferred Language en Marital Status Single Spiritism Affiliation Unknown Race White Ethnic Group Not or Lati no Author Organization [facility] Care Team Providers Care Cracker Dough Mixer Name Role Phone Daisha Marks Unavailable JULIO ., DR STEPHENS Admitting Unavailable HAY ., DR STEPHENS Attending Unavailable HAY ., DR STEPHENS Consulting [facility] Unavailable ZIEBGERMAN, DR ASHLEY Molina Consulting Unavailable PAY ., DR BREAUX Admitting Unavailable PAY ., DR BREAUX Attending Unavailable [facility] Unavailable PAY ., DR BREAUX Consulting Unavailable JESU, EM Attending Unavailable [facility] [place] Unavailable LINDA, DR KILO Molina Admitting Unavailable LINDA, DR KILO Molina Attending Unavailable LINDA, DR KILO Molina Consulting Unavailable GOPI ESTEBAN Admitting Unavailable GOPI ESTEBAN Attending Unavailable GOPI ESTEBAN Consulting [facility] [place] Unavailable FELIX KEY Consulting Unavailable LINDA, DR KILO Molina Admitting Unavailable LINDA, DR KILO Molina Attending Unavailable LINDA, DR KILO Molina Consulting [facility] Unavailable CLARE CELAYA Consulting Unavailable Allergies Allergy Classification Reported Allergen(s) Allergy Type Date of Onset Reaction(s) Facility (1 source) Amino Acids Drug Allergy 09-03-2021 [facility] Repository Problems Active Problems Problem Classification Problem Date Documented Da te Episodic/Chronic Essential hypertension (1 source) Essential (primary) hypertension; Translations: [ESSENTIAL PRIMARY HYPERTENSION] Onset: 03-15-2023 Chronic Other aftercare (1 source) Other intermission coordinator (current) drug therapy; Translations: [OTH HALFWAY CURRENT DRUG THERAPY] Onset: 03-15-2023 Episodic Other [...] B (Bld) [Mass/Vol] 6.0 pg/mL Normal <=450.0 [facility] Comment on above: Performed By: #### B CECILIA, BNP #### [facility] [address] [place] [address] Dr. Scarlett Dickey PROF CHEM 8 (BAS METB)on Anion gap [Moles/Vol] 13.2 mmol/L Normal [facility] Comment on above: Performed By: #### B CECILIA, BNP #### [facility] [address] [place] [address] Dr. Scarlett Dickey Calcium [Mass/Vol] 8.4 mg/dL Critically low 8.5-10.1 [facility] Comment on above: Performed By: #### B CECILIA, BNP #### [facility] [address] [place] [address] Dr. Scarlett Dickey Chloride [Moles/Vol] 105 mmol/L Normal 98-107 [facility] Comment on above: Performed By: #### B MP, BNP #### [facility] [address] [place] [address] Dr. Scarlett Dickey CO2 [Moles/Vol] 28.9 mmol/L Normal 21.0-32.0 [facility] Comment on above: Performed By: #### B MP, BNP #### [facility] [address] [place] [address] Dr. Scarlett Dickey Creatinine [Mass/Vol] 1.04 mg/dL Normal 0.70-1.30 [facility] Comment on above: Performed By: #### B MP, BNP #### [facility] [address] [place] [address] Dr. Scarlett Dickey EGFR-AF MARTINIQUAIS >60 Normal >=60 [facility] Comment on above: Performed By: #### B MP, BNP #### [facility] [address] [address] [address] Scarlett Dickey EGFR-NON AF MARTINIQUAIS >60 Normal >=60 [facility] Comment on above: Performed By: #### B MP, BNP #### [facility] [address] [address] [address] Scarlett Dickey Glucose [Mass/Vol] 147 mg/dL Critically high 74-106 [facility] Comment on above: Performed By: #### B MP, BNP #### [facility] [address] [place] [address] Dr. Scarlett Dickey Potassium [Moles/Vol] 4.1 mmol/L Normal 3.5-5.1 [facility] Comment on above: Performed By: #### B MP, BNP #### [facility] [address] [address] [address] Scarlett Dickey Sodium [Moles/Vol] 143 mmol/L Normal 136-145 [facility] Comment on above: Performed By: #### B MP, BNP #### [facility] [address] [place] [address] Dr. Scarlett Dickey Urea nitrogen [Mass/Vol] 14.0 mg/dL Normal 7.0-18.0 [facility] Comment on above: Performed By: #### B MP, BNP #### [facility] [address] [place] [address] Dr. Scarlett Dickey Urea nitrogen/Creatinin e [Mass ratio] 13.5 mg/mg Normal [facility] Comment on above: Performed By: #### B MP, BNP #### [facility] [address] [place] [address] Dr. Scarlett Dickey US EDD DOP LEG [...] ASHLEY LOVELACE Date: 2023-03-11 11:54 Normal [facility] CBC AUTO DIFFon 09-12-2022 BASO # 0.0 103/ul Normal 0.0-0.1 [facility] Comment on above: Performed By: #### C BC #### [facility] [address] [address] [address] Scarlett Dickey Basophils/100 WBC (Bld) 0.6 % Normal 0.2-2.0 [facility] Comment on above: Performed By: #### C BC #### [facility] [address] [place] [address] Dr. Scarlett Dickey EO # 0.2 103/ul Normal 0.0-0.7 [facility] Comment on above: Performed By: #### C BC #### [facility] [address] [address] [address] Scarlett Dickey Eosinophils/100 WBC (Bld) 5.0 % Normal 0.9-7.0 [facility] Comment on above: Performed By: #### C BC #### [facility] [address] [place] [address] Dr. Scarlett Dickey Erythrocyte distribution width (RBC) [Ratio] 13.6 % Normal 11.0-15.0 [facility] Comment on above: Performed By: #### C BC #### [facility] [address] [place] [address] Dr. Scarlett Dickey Hematocrit (Bld) [Volume fraction] 41.7 % Critically low 42.0-54.0 [facility] Comment on above: Performed By: #### C BC #### [facility] [address] [place] [address] Dr. Scarlett Dickey Hemoglobin (Bld) [Mass/Vol] 13.4 g/dL Critically low 14.0-18.0 [facility] Comment on above: Performed By: #### C BC #### [facility] [address] [place] [address] Dr. Scarlett Dickey IG # 0.00 10e3/ul Normal 0.00-0.03 [facility] Comment on above: Performed By: #### C BC #### [facility] [address] [place] [address] Dr. Scarlett Dickey IG % 0.0 % Normal 0.0-0.5 [facility] Comment on above: Performed By: #### C BC #### [facility] [address] [place] [address] Dr. Scarlett Dickey LYMPH # 1.2 103/ul Normal 1.2-3.8 [facility] Comment on above: Performed By: #### C BC #### [facility] [address] [place] [address] Dr. Scarlett Dickey Lymphocytes/100 WBC (Bld) 34.2 % Normal 20.5-60.0 [facility] Comment on above: Performed By: #### C BC #### [facility] [address] [place] [address] Dr. Scarlett Dickey MANUAL DIFF REQ NO Normal [facility] Comment on above: Performed By: #### C BC #### [facility] [address] [place] [address] Dr. Scarlett Dickey MCH (RBC) [Entitic mass] 28.6 pg Normal 25.9-34.0 [facility] Comment on above: Performed By: #### C BC #### [facility] [address] [place] [address] Dr. Scarlett Dickey MCHC (RBC) [Mass/Vol] 32.1 g/dL Normal 29.9-35.2 [facility] Comment on above: Performed By: #### C BC #### [facility] [address] [place] [address] Dr. Scarlett Dickey MCV (RBC) [Entitic vol] 88.9 fL Normal 80.0-94.0 [facility] Comment on above: Performed By: #### C BC #### [facility] [address] [place] [address] Dr. Scarlett Dickey MONO # 0.5 103/ul Normal 0.3-0.8 [facility] Comment on above: Performed By: #### C BC #### [facility] [address] [place] [address] Dr. Scarlett Dickey Monocytes/100 WBC (Bld) 13.6 % Critically high 1.7-12.0 [facility] Comment on above: Performed By: #### C BC #### [facility] [address] [place] [address] Dr. Scarlett Dickey NEUT # 1.7 103/ul Normal 1.4-6.5 [facility] Comment on above: Performed By: #### C BC #### [facility] [address] [place] [address] Dr. Scarlett Dickey Neutrophils/100 WBC (Bld) 46.6 % Normal 43.0-75.0 [facility] Comment on above: Performed By: #### C BC #### [facility] [address] [place] [address] Dr. Scarlett Dickey Platelet mean volume (Bld) [Entitic vol] 9.8 fL Normal 9.5-13.5 [facility] Comment on above: Performed By: #### C BC #### [facility] [address] [place] [address] Dr. Scarlett Dickey PLT 262 103/ul Normal 150-450 [facility] Comment on above: Performed By: #### C BC #### [facility] [address] [place] [address] Dr. Scarlett Dickey RBC 4.69 106/ul Critically low 4.70-6.10 [facility] Comment on above: Performed By: #### C BC #### [facility] [address] [place] [address] Dr. Scarlett Dickey WBC 3.6 103/ul Critically low 4.0-11.0 [facility] Comment on above: Performed By: #### C BC #### [facility] [address] [place] [address] Dr. Scarlett Dickey D-DIMERon 09-12-2022 D-DIMER 0.43 mg/L FEU Normal <=0.59 [facility] Comment on above: Performed By: #### D DIM #### [facility] [address] [place] [address] Dr. Scarlett Dickey D-DIMER COMMENTS SEE BELOW Normal [facility] Comment on above: Result Comment: Incr eases [...] hospitalization. Performed By: #### D DIM #### [facility] [address] [place] [address] Dr. Scarlett Dickey PROF 14(COMP METB)on 022 Albumin [Mass/Vol] 3.5 g/dL Normal 3.4-5.0 [facility] Comment on above: Performed By: #### C MP #### [facility] [address] [place] [address] Dr. Scarlett Dickey Albumin/Globulin [Mass ratio] 1.0 {ratio} Normal [facility] Comment on above: Performed By: #### C MP #### [facility] [address] [place] [address] Dr. Scarlett Dickey ALP [Catalytic activity/Vol] 63 U/L Normal 46-116 [facility] Comment on above: Performed By: #### C MP #### [facility] [address] [place] [address] Dr. Scarlett Dickey ALT [Catalytic activity/Vol] 32 U/L Normal 16-63 [facility] Comment on above: Performed By: #### C MP #### [facility] [address] [place] [address] Dr. Scarlett Dickey Anion gap [Moles/Vol] 6.0 mmol/L Normal [facility] Comment on above: Performed By: #### C MP #### [facility] [address] [place], [place] [id number] Dr. Scarlett Dickey AST [Catalytic activity/Vol] 12 U/L Critically low 15-37 [facility] Comment on above: Performed By: #### C MP #### [facility] [address] [address] [address] Scarlett Dickey Bilirubin [Mass/Vol] 0.4 mg/dL Normal 0.2-1.0 [facility] Comment on above: Performed By: #### C MP #### [facility] [address] [address] [address] Scarlett Dickey Calcium [Mass/Vol] 8.3 mg/dL Critically low 8.5-10.1 [facility] Comment on above: Performed By: #### C MP #### [facility] [address] [place] [address] Dr. Scarlett Dickey Chloride [Moles/Vol] 105 mmol/L Normal 98-107 [facility] Comment on above: Performed By: #### C MP #### [facility] [address] [place] [address] Dr. Scarlett Dickey CO2 [Moles/Vol] 31.1 mmol/L Normal 21.0-32.0 [facility] Comment on above: Performed By: #### C MP #### [facility] [address] [place] [address] Dr. Scarlett Dickey Creatinine [Mass/Vol] 0.80 mg/dL Normal 0.70-1.30 [facility] Comment on above: Performed By: #### C MP #### [facility] [address] [place] [address] Dr. Scarlett Dickey EGFR-AF MARTINIQUAIS >60 Normal >=60 [facility] Comment on above: Performed By: #### C MP #### [facility] [address] [place] [address] Dr. Scarlett Dickey EGFR-NON AF MARTINIQUAIS >60 Normal >=60 [facility] Comment on above: Performed By: #### C MP #### [facility] [address] [place] [address] Dr. Scarlett Dickey Globulin (S) [Mass/Vol] 3.4 g/dL Normal [facility] Comment on above: Performed By: #### C MP #### [facility] [address] [address] [address] Scarlett Dickey Glucose [Mass/Vol] 103 mg/dL Normal 74-106 [facility] Comment on above: Performed By: #### C MP #### [facility] [address] [address] [address] Scarlett Dickey Potassium [Moles/Vol] 4.1 mmol/L Normal 3.5-5.1 [facility] Comment on above: Performed By: #### C MP #### [facility] [address] [address] [address] Scarlett Dickey Protein [Mass/Vol] 6.9 g/dL Normal 6.4-8.2 [facility] Comment on above: Performed By: #### C MP #### [facility] [address] [address] [address] Scarlett Dickey Sodium [Moles/Vol] 138 mmol/L Normal 136-145 [facility] Comment on above: Performed By: #### C MP #### [facility] [address] [address] [address] Scarlett Dcikey Urea nitrogen [Mass/Vol] 9.0 mg/dL Normal 7.0-18.0 [facility] Comment on above: Performed By: #### C MP #### [facility] [address] [address] [address] Scarlett Dickey Urea nitrogen/Creatinin e [Mass ratio] 11.2 mg/mg Normal [facility] Comment on above: Performed By: #### C MP #### [facility] [address] [address] [address] Scarlett Dickey XR FOREARM LT 2 [...] CLARE CELAYA Date: 2022-09-12 06:33 Normal [facility]on 07-09 SARS-CoV-2 (COVID-19) RNA NATHAN+probe Ql (Unsp spec) Detected Critically abnormal NOT DETECTED [facility] Comment on above: Result Comment: This test is not yet approved or cleared by the [place] FDA. When there are no FDA-approved or cleared tests available, and other criteria are met, FDA can make tests available under an emergency access mechanism called an Emergency Use Authorization (EUA). The EUA for this test is supported by the [place] of Health and Human Service's declaration that [...] longer be used). Performed By: #### C [facility] #### [facility] [address] [address] [address] Scarlett Dickey XR CHEST 1 Von [...] FELIX KEY Date: 2022-08-01 21:16 Normal [facility] Encounters Encounter Date Encounter Type Care Provider Facility Start: 03-11-2023 Patient encounter procedure [facility] Start: 03-11-2023 End: 03-11-[address] ASHLEY LOVELACE [facility] [employer] Other Start: 12-16-2022 End: 12-16-[address] ANGELO KIM . Facility:[facility] Start: 09-12-2022 End: 09-12-[address] KILO MCKEON Facility:[facility] Start: 08-01-2022 End: 08-02-2022 ambulatory GOPIKRYSTYNA ESTEBAN Facility:[facility] Start: 06-07-2022 End: 06-07-2022 ambulatory EM NAILS Facility:[facility] Start: 04-08-2022 ambulatory EM NAILS Facility: [facility] Payers Date Payer Category Payer Unknown [id number] 2.16.84 [id number] 1989 Unknown [id number] 2.16.84 [id number] 1989 Unknown [id number] 2.16.84 [id number] 1989 Unknown [id number] 2.16.84 [id number] 1989 Unknown [id number] 2.16.84 [id number] 1989 Unknown [id number] 2.16.84 [id number] 1959 Private Health Insurance [id number] 1960 Self-pay [id number] Social History Date Type Detail Facility Sex Assigned [facility] [employer] Other Evaluation note Note Date & Type Note Facility Evaluation note No Information [facility] Other Summary Purpose Family History No Family [...] BE BASED ON THE PRIMARY CLINICAL RECORDS. [facility]. provides no warranty or guarantee of the accuracy or completeness of information in this document.
--- NOTE | 2024-12-09 03:33 | ED_ITS ---
HPI - Male Genitourinary General Chief complaint: Urogenital-Male Stated complaint: URINATING BLOOD Time Seen by Provider: 12/09/24 03:12 Source: patient Mode of arrival: walk-in Limitations: no limitations History of Present Illness HPI Narrative: cc - blood in urine A couple of days ago, the patient was evaluated in the emergency department after experiencing symptoms of dysuria and urgency. He was found to have an acute UTI and was placed on Keflex 500 mg twice daily for 5 days. Preliminary culture results show gram-negative rods. He denied any history of STD. Tonight he comes in complaining that the when he urinated there was blood in the urine. He denied passing any clots. He denies any abdominal pain or flank pain. No fever or chills. He did tell me that he used some sort of a silicone sexual device that he inserted his penis into. He did not put anything into the urethra or any instrumentation into the bladder. He said this happened a couple days prior to him getting the symptoms of infection. Related Data Home Medications ?Medication ?Instructions ?Recorded ?Confirmed amlodipine 5 mg tablet 5 mg PO DAILY 08/30/23 12/09/24 Previous Rx's ?Medication ?Instructions ?Recorded cephalexin 500 mg capsule 500 mg PO BID 5 days #10 caps 12/04/24 ciprofloxacin HCl 500 mg tablet 500 mg PO BID #10 tabs 12/09/24 (Cipro) Allergies Allergy/AdvReac Type Severity Reaction Status Date / Time lisinopril Allergy Unknown Unknown Verified 12/09/24 03:15 PFSH PFS Social History Smoking status: Never smoker Little interest or pleasure in doing things: not at all Feeling down, depressed, or hopeless: not at all Exam Narrative Exam Narrative: Nurses notes and vital signs reviewed and patient is not hypoxic. afebrile General: Well-appearing and in no apparent distress. Skin: Warm, dry, no pallor noted. . Eye: Pupils are equal, round and EOMI. No scleral icterus. Cardiovascular: Regular Rate and Rhythm without murmur, gallop or rub. Respiratory: No accessory muscle use or respiratory distress. Lungs are clear to auscultation, no wheezing, rales or rhonchi Back: No CVA tenderness Genital: Refused to allow me to do a genital examination GI: Abdomen is soft, non-distended. Normal bowel sounds. No tenderness to palpation. No rebound, guarding, or rigidity noted. Neurological: A&O x4. No cranial nerve dysfunction observed. No truncal ataxia. Moves all extremities. Sensation intact. Psychiatric: Cooperative and interactive. Normal mood and affect. Constitutional Vital Signs, click to edit/add: Last Vital Signs Temp 99.3 F 12/09/24 03:06 Pulse 115 H 12/09/24 03:06 Resp 18 12/09/24 03:06 BP 169/126 H 12/09/24 03:06 Pulse Ox 97 12/09/24 03:06 O2 Del Method Room Air 12/09/24 03:06 Course Vital Signs Vital signs: Vital Signs Temperature 99.3 F 12/09/24 03:06 Pulse Rate 115 H 12/09/24 03:06 Respiratory Rate 18 12/09/24 03:06 Blood Pressure 169/126 H 12/09/24 03:06 Pulse Oximetry 97 12/09/24 03:06 Oxygen Delivery Method Room Air 12/09/24 03:06 Temperature 99.3 F 12/09/24 03:06 Pulse Rate 115 H 12/09/24 03:06 Respiratory Rate 18 12/09/24 03:06 Blood Pressure 169/126 H 12/09/24 03:06 Pulse Oximetry 97 12/09/24 03:06 Oxygen Delivery Method Room Air 12/09/24 03:06 MDM - Male Genitourinary MDM Narrative Medical decision making narrative: Urine ordered to be obtained and sent for testing. I reviewed the patient's urine culture and it shows gram-negative rods. Although he did not have nitrite on the initial urinalysis, it is possible that he has E. coli as the primary pathogen in his urine. He will likely benefit from the addition of ciprofloxacin to his current antibiotic regimen. He was given a prescription for Cipro and instructed to start that after filling it in the morning. He will remain on his Keflex until we have definitive urine culture results. Discharge Plan Discharge Chief Complaint: Urogenital-Male Clinical Impression: Urinary tract infection, Gross hematuria Patient Disposition: Home, Self-Care Time of Disposition Decision: 03:37 Prescriptions / Home Meds: New ciprofloxacin HCl [Cipro] 500 mg tablet 500 mg PO BID Qty: 10 0RF No Action cephalexin 500 mg capsule 500 mg PO BID 5 Days Qty: 10 0RF amlodipine 5 mg tablet 5 mg PO DAILY Print Language: Yoruba Instructions: Urinary Tract Infection in Men (ED), Hematuria (ED) Referrals: EM NAILS [Primary Care Provider] - 1 week
[2024-12-09 03:50] LABS: Bilirubin Urine SMALL (NEGATIVE); Blood Urine LARGE (NEGATIVE); Glucose Urine UA NEGATIVE (NEGATIVE); Ketones Urine TRACE mg/dL (NEGATIVE); Leukocyte Esterase Urine MODERATE (NEGATIVE); Nitrite Urine NEGATIVE (NEGATIVE); Protein Urine 100 mg/dL (NEG/TRACE); Specific Gravity Urine >=1.030 (1.005-1.025); pH Urine 5.5 (5.0-9.0)
[2024-12-09 03:51] LABS: Clarity Urine TURBID (CLEAR); Color Urine BROWN (YELLOW); Urine Microscopic Indicated YES
[2024-12-09 03:52] LABS: Bacteria Urine MODERATE #/HPF (NONE SEEN); Cast Seen? NONE SEEN #/LPF (NONE SEEN); Crystals Seen? None Seen #/HPF (None Seen); Mucus Urine NONE SEEN (NONE SEEN); RBC Urine >100 #/HPF (0-2); Squamous Epithelial Cell Urine RARE #/LPF (NONE/RARE); Urine Culture Indicated YES; WBC Urine >100 #/HPF (NONE SEEN)
[2024-12-09 04:30] VITALS: BP 136/103
== END 2024-12-09 04:30 | disposition home or self-care (01) ==
PROVIDERS: Emergency Provider Emergency Medicine; PCP Nurse Practitioner Family
DX: N39.0 Urinary tract infection, site not specified (principal); R31.0 Gross hematuria
CPT/HCPCS: 81001; 87086; 87150; 87186; 99283

== ENCOUNTER 2024-12-11 15:43 | Emergency (ER) | payer OTHER, SELFPAY ==
--- OUTSIDE RECORDS SUMMARY | 2024-12-11 15:50 | XMS_ITS | CCD ---
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 Role Phone Daisha Marks Unavailable JULIO ., DR STEPHENS Admitting Unavailable HAY ., DR STEPHENS Attending Unavailable HAY ., DR STEPHENS Consulting Unavailable JESU, [facility] Primary Care Unavailable ALBANIA, DR ASHLEY Molina Consulting Unavailable PAY ., DR BREAUX Admitting Unavailable PAY ., DR BREAUX Attending Unavailable JESU, [facility] Care Unavailable PAY ., DR BREAUX Consulting Unavailable JESU, EM Attending Unavailable JESU, [facility] Care Unavailable JESU, EM Admitting Unavailable JESU, [facility] Care Unavailable LINDA, DR KILO Molina Admitting Unavailable LINDA, DR KILO Molina Attending Unavailable LINDA, DR KILO Molina Consulting Unavailable GOPI ESTEBAN Admitting Unavailable GOPI ESTEBAN Attending Unavailable EULALIA, GOPI Consulting Unavailable [facility] Primary [facility] Unavailable FELIX KEY Consulting Unavailable LINDA, DR KILO Molina Admitting Unavailable LINDA, DR KILO Molina Attending Unavailable LINDA, DR KILO Molina Consulting Unavailable JESU, [facility] Unavailable CLARE CELAYA Consulting Unavailable Allergies Allergy Classification Reported Allergen(s) Allergy Type Date of Onset Reaction(s) Facility (1 source) Amino Acids Drug Allergy 09-03-2021 [facility] Medications Current Medications Medication Drug Class(es) Dates Sig (Normalized) Sig (Original) amLODIPine 5 mg oral tablet (1 source) Dihydropyridine Calcium Channel Nafisa Start: 12-10-2024 Amlodipine 5 mg tablet Active MG PO December 10, 2024 12:00am cephalexin 500 mg oral capsule (1 source) Cephalosporin Antibacterial Start: 12-10-2024 Cephalexin 500 mg capsule Active MG PO December 10, 2024 12:00am phentermine hydrochloride 37.5 mg oral tablet (1 source) Sympathomimetic Amine Anorectic Start: 12-10-2024 Phentermine 37.5 mg tablet Active MG PO December 10, 2024 12:00am Problems Active Problems Problem Classification Problem Date Documented Da te Episodic/Chronic Essential hypertension (1 source) Essential (primary) hypertension; Translations: [ESSENTIAL PRIMARY HYPERTENSION] Onset: 03-15-2023 Chronic Other aftercare (1 source) 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 Scarlett Dickey PROF CHEM 8 (BAS METB)on Anion gap [Moles/Vol] 13.2 mmol/L Normal [facility] [place] [facility] Comment on above: Performed By: #### B MP, BNP #### [facility] [address] [place] [address] Dr. Scarlett Dickey Calcium [Mass/Vol] 8.4 mg/dL Critically low 8.5-10.1 [facility] Comment on above: Performed By: #### B MP, BNP #### [facility] [address] [place] [address] Dr. Scarlett Dickey Chloride [Moles/Vol] 105 mmol/L Normal 98-107 [facility] [place] [facility] Comment on above: Performed By: #### B MP, BNP #### [facility] [address] [place] [address] Dr. Scarlett Dickey CO2 [Moles/Vol] 28.9 mmol/L Normal 21.0-32.0 [facility] Comment on above: Performed By: #### B MP, BNP #### [facility] [address] [place] [address] Dr. Scarlett Dickey Creatinine [Mass/Vol] 1.04 mg/dL Normal 0.70-1.30 [facility] [place] [facility] Comment on above: Performed By: #### B MP, BNP #### [facility] [address] [place] [address] Dr. Scarlett Dickey EGFR-AF CAMEROONIAN >60 Normal >=60 [facility] Comment on above: Performed By: #### B MP, BNP #### [facility] [address] [place] [address] Dr. Scarlett Dickey EGFR-NON AF CAMEROONIAN >60 Normal >=60 [facility] [place] [facility] Comment on above: Performed By: #### B MP, BNP #### [facility] [address] [place] [address] Dr. Scarlett Dickey Glucose [Mass/Vol] 147 mg/dL Critically high 74-106 [place] Comment on above: Performed By: #### B MP, BNP #### [facility] [address] [place] [address] Dr. Scarlett Dickey Potassium [Moles/Vol] 4.1 mmol/L Normal 3.5-5.1 [facility] [place] [facility] Comment on above: Performed By: #### B MP, BNP #### [facility] [address] [place] [address] Dr. Scarlett Dickey Sodium [Moles/Vol] 143 mmol/L Normal 136-145 [facility] Comment on above: Performed By: #### B MP, BNP #### [facility] [address] [place] [address] Dr. Scarlett Dickey Urea nitrogen [Mass/Vol] 14.0 mg/dL Normal 7.0-18.0 [facility] [place] [facility] Comment on above: Performed By: #### B MP, BNP #### [facility] [address] [place] [address] Dr. Scarlett Dickey Urea nitrogen/Creatinin e [Mass ratio] 13.5 mg/mg Normal [facility] Comment on above: Performed By: #### B MP, BNP #### [facility] [address] [place] [address] Dr. Scarlett Dickey US EDD DOP LEG [...] ASHLEY LOVELACE Date: 2023-03-11 11:54 Normal [facility] CBC AUTO DIFFon 09-12-2022 BASO # 0.0 103/ul Normal 0.0-0.1 [facility] [place] [facility] Comment on above: Performed By: #### C BC #### [facility] [address] [place] [address] Dr. Scarlett Dickey Basophils/100 WBC (Bld) 0.6 % Normal 0.2-2.0 [facility] [place] [facility] Comment on above: Performed By: #### C BC #### [facility] [address] [place] [address] Dr. Scarlett Dickey EO # 0.2 103/ul Normal 0.0-0.7 [facility] [place] [facility] Comment on above: Performed By: #### C BC #### [facility] [address] [address] [address] Scarlett Dickey Eosinophils/100 WBC (Bld) 5.0 % Normal 0.9-7.0 [facility] Comment on above: Performed By: #### C BC #### [facility] [address] [place] [address] Dr. Scarlett Dickey Erythrocyte distribution width (RBC) [Ratio] 13.6 % Normal 11.0-15.0 [facility] [place] [facility] Comment on above: Performed By: #### C BC #### [facility] [address] [place] [address] Dr. Scarlett Dickey Hematocrit (Bld) [Volume fraction] 41.7 % Critically low 42.0-54.0 [facility] [place] [facility] Comment on above: Performed By: #### C BC #### [facility] [address] [place] [address] Dr. Scarlett Dickey Hemoglobin (Bld) [Mass/Vol] 13.4 g/dL Critically low 14.0-18.0 [facility] [place] [facility] Comment on above: Performed By: #### C BC #### [facility] [address] [place] [address] Dr. Scarlett Dickey IG # 0.00 10e3/ul Normal 0.00-0.03 [facility] [place] [facility] Comment on above: Performed By: #### C BC #### [facility] [address] [place] [address] Dr. Scarlett Dickey IG % 0.0 % Normal 0.0-0.5 [facility] [place] [facility] Comment on above: Performed By: #### C BC #### [facility] [address] [place] [address] Dr. Scarlett Dickey LYMPH # 1.2 103/ul Normal 1.2-3.8 [facility] [place] [facility] Comment on above: Performed By: #### C BC #### [facility] [address] [place] [address] Dr. Scarlett Dickey Lymphocytes/100 WBC (Bld) 34.2 % Normal 20.5-60.0 [facility] [place] [facility] Comment on above: Performed By: #### C BC #### [facility] [address] [place] [address] Dr. Scarlett Dickey MANUAL DIFF REQ NO Normal [facility] Comment on above: Performed By: #### C BC #### [facility] [address] [place] [address] Dr. Scarlett Dickey MCH (RBC) [Entitic mass] 28.6 pg Normal 25.9-34.0 [facility] [place] [facility] Comment on above: Performed By: #### C BC #### [facility] [address] [place] [address] Dr. Scarlett Dickey MCHC (RBC) [Mass/Vol] 32.1 g/dL Normal 29.9-35.2 [facility] [place] [facility] Comment on above: Performed By: #### C BC #### [facility] [address] [place] [address] Dr. Scarlett Dickey MCV (RBC) [Entitic vol] 88.9 fL Normal 80.0-94.0 [facility] [place] [facility] Comment on above: Performed By: #### C BC #### [facility] [address] [place] [address] Dr. Scarlett Dickey MONO # 0.5 103/ul Normal 0.3-0.8 [facility] [place] [facility] Comment on above: Performed By: #### C BC #### [facility] [address] [place] [address] Dr. Scarlett Dickey Monocytes/100 WBC (Bld) 13.6 % Critically high 1.7-12.0 [facility] [place] [facility] Comment on above: Performed By: #### C BC #### [facility] [address] [place] [address] Dr. Scarlett Dickey NEUT # 1.7 103/ul Normal 1.4-6.5 [facility] [place] [facility] Comment on above: Performed By: #### C BC #### [facility] [address] [place] [address] Dr. Scarlett Dickey Neutrophils/100 WBC (Bld) 46.6 % Normal 43.0-75.0 [facility] [place] [facility] Comment on above: Performed By: #### C BC #### [facility] [address] [place] [address] Dr. Scarlett Dickey Platelet mean volume (Bld) [Entitic vol] 9.8 fL Normal 9.5-13.5 [facility] Comment on above: Performed By: #### C BC #### [facility] [address] [place] [address] Dr. Scarlett Dickey PLT 262 103/ul Normal 150-450 [facility] Comment on above: Performed By: #### C BC #### [facility] [address] [place], [place] [id number] Dr. Scarlett Dickey RBC 4.69 106/ul Critically low 4.70-6.10 [facility] Comment on above: Performed By: #### C BC #### [facility] [address] [place] [address] Dr. Scarlett Dickey WBC 3.6 103/ul Critically low 4.0-11.0 [facility] Comment on above: Performed By: #### C BC #### [facility] [address] [place] [address] Dr. Scarlett Dickey D-DIMERon 09-12-2022 D-DIMER 0.43 mg/L FEU Normal <=0.59 [facility] Comment on above: Performed By: #### D DIM #### [facility] [address] [place] [address] Dr. Scarlett Dickey D-DIMER COMMENTS SEE BELOW Normal [facility] Comment on above: Result Comment: Incr eases [...] hospitalization. Performed By: #### D DIM #### [facility] [address] [place] [address] Dr. Scarlett Dickey PROF 14(COMP METB)on 022 Albumin [Mass/Vol] 3.5 g/dL Normal 3.4-5.0 [facility] Comment on above: Performed By: #### C MP #### [facility] [address] [place] [address] Dr. Scarlett Dickey Albumin/Globulin [Mass ratio] 1.0 {ratio} Normal [facility] [place] [facility] Comment on above: Performed By: #### C MP #### [facility] [address] [place] [address] Dr. Scarlett Dickey ALP [Catalytic activity/Vol] 63 U/L Normal 46-116 [facility] [place] [facility] Comment on above: Performed By: #### C MP #### [facility] [address] [address] [address] Scarlett Dickey ALT [Catalytic activity/Vol] 32 U/L Normal 16-63 [facility] Comment on above: Performed By: #### C MP #### [facility] [address] [address] [address] Scarlett Dickey Anion gap [Moles/Vol] 6.0 mmol/L Normal [facility] [place] [facility] Comment on above: Performed By: #### C MP #### [facility] [address] [address] [address] Scarlett Dickey AST [Catalytic activity/Vol] 12 U/L Critically low 15-37 [facility] [place] [facility] Comment on above: Performed By: #### C MP #### [facility] [address] [address] [address] Scarlett Dickey Bilirubin [Mass/Vol] 0.4 mg/dL Normal 0.2-1.0 [facility] [place] [facility] Comment on above: Performed By: #### C MP #### [facility] [address] [address] [address] Scarlett Dickey Calcium [Mass/Vol] 8.3 mg/dL Critically low 8.5-10.1 [facility] Comment on above: Performed By: #### C MP #### [facility] [address] [place] [address] Dr. Scarlett Dickey Chloride [Moles/Vol] 105 mmol/L Normal 98-107 [facility] Comment on above: Performed By: #### C MP #### [facility] [address] [address] [address] Scarlett Dickey CO2 [Moles/Vol] 31.1 mmol/L Normal 21.0-32.0 [facility] Comment on above: Performed By: #### C MP #### [facility] [address] [address] [address] Scarlett Dickey Creatinine [Mass/Vol] 0.80 mg/dL Normal 0.70-1.30 [facility] [place] [facility] Comment on above: Performed By: #### C MP #### [facility] [address] [address] [address] Scarlett Dickey EGFR-AF CAMEROONIAN >60 Normal >=60 [facility] Comment on above: Performed By: #### C MP #### [facility] [address] [address] [address] Scarlett Dickey EGFR-NON AF CAMEROONIAN >60 Normal >=60 [facility] [place] [facility] Comment on above: Performed By: #### C MP #### [facility] [address] [address] [address] Scarlett Dickey Globulin (S) [Mass/Vol] 3.4 g/dL Normal [facility] [place] [facility] Comment on above: Performed By: #### C MP #### [facility] [address] [place] [address] Dr. Scarlett Dickey Glucose [Mass/Vol] 103 mg/dL Normal 74-106 [facility] Comment on above: Performed By: #### C MP #### [facility] [address] [place] [address] Dr. Scarlett Dickey Potassium [Moles/Vol] 4.1 mmol/L Normal 3.5-5.1 [facility] [place] [facility] Comment on above: Performed By: #### C MP #### [facility] [address] [place] [address] Dr. Scarlett Dickey Protein [Mass/Vol] 6.9 g/dL Normal 6.4-8.2 [facility] Comment on above: Performed By: #### C MP #### [facility] [address] [place] [address] Dr. Scarlett Dickey Sodium [Moles/Vol] 138 mmol/L Normal 136-145 [facility] Comment on above: Performed By: #### C MP #### [facility] [address] [address] [address] Scarlett Dickey Urea nitrogen [Mass/Vol] 9.0 mg/dL Normal 7.0-18.0 [facility] [place] [facility] Comment on above: Performed By: #### C MP #### [facility] [address] [address] [address] Scarlett Dickey Urea nitrogen/Creatinin e [Mass ratio] 11.2 mg/mg Normal [facility] Comment on above: Performed By: #### C MP #### [facility] [address] [place], [place] [address] Dr. Scarlett Dickey XR FOREARM LT 2 [...] CLARE CELAYA Date: 2022-09-12 06:33 Normal [facility] Covid-19 PCR ([facility])on 07-09 SARS-CoV-2 (COVID-19) RNA NATHAN+probe Ql (Unsp spec) Detected Critically abnormal NOT DETECTED [facility] Comment on above: Result Comment: This test is not yet approved or cleared by the [place] FDA. When there are no FDA-approved or cleared tests available, and other criteria are met, FDA can make tests available under an emergency access mechanism called an Emergency Use Authorization (EUA). The EUA for this test is supported by the [place] of Health and Human Service's declaration that [...] longer be used). Performed By: #### C VDTB #### [facility] [address] [place], [place] [address] Dr. Scarlett Dickey XR CHEST 1 Von [...] by: FELIX KEY Date: 2022-08-01 21:16 Normal [facility] [place] [facility] Vital Signs Date Time Vital Sign Value Performing Clinician Aditi gomezy 12-10-2024 11:49-0500 Body height 182.88 cm [facility] 12-10-2024 11:49-0500 Body mass index (BMI) [Ratio] 54.8 kg/m2 [facility] 12-10-2024 11:49-0500 Body temperature 98.2 [degF] [facility] 12-10-2024 11:49-0500 Body weight 183.47 kg [facility] 12-10-2024 11:49-0500 Diastolic blood pressure 87 mm[Hg] [facility] 12-10-2024 11:49-0500 Heart rate 102 /min [facility] 12-10-2024 11:49-0500 Respiratory rate 19 /min [facility] 12-10-2024 11:49-0500 SaO2% (BldA) [Mass fraction] 98 % [facility] 12-10-2024 11:49-0500 Systolic blood pressure 128 mm[Hg] [facility] Encounters Encounter Date Encounter Type Care Provider Facility Start: 12-10-2024 End: 12-10-2024 ambulatory [facility] Work Phone: Start: 12-10-2024 End: 12-10-2024 Patient encounter procedure [facility] Work Phone: Start: 03-11-2023 Patient encounter procedure Daisha Marks [facility] Start: 03-11-2023 End: 03-11-[address] ASHLEY LOVELACE [facility] [employer] Other Start: 12-16-2022 End: 12-16-[address] ANGELO KIM . Facility:[facility] Start: 09-12-2022 End: 09-12-[address] KILO MCKEON Facility:[facility] Start: 08-01-2022 End: 08-02-2022 ambulatory GOPI ESTEBAN Facility:[facility] Start: 06-07-2022 End: 06-07-2022 ambulatory EM NAISL Facility:[facility] Start: 04-08-2022 ambulatory EM NAILS Facility: [facility] Payers Date Payer Category Payer Unknown [id number] 2.16.84 [id number] 1989 Unknown [id number] 2.16.84 [id number] 1989 Unknown [id number] 2.16.84 [id number] 1989 Unknown [id number] 2.16.84 [id number] 1989 Unknown [id number] 2.16.84 [id number] 1989 Unknown [id number] 2.16.84 [id number] 1960 Private Health Insurance [id number] 1960 Self-pay [id number] Unknown [id number] Social History Date Type Detail Facility Sex Assigned At [employer] Other Tobacco smoking stat [facility] Unknown if ever smoked [facility] Work Phone: Start: 12-10-2024 Sex Male (finding) [facility] Start: 1990 Sex Assigned At Male [facility] Evaluation note Note Date & Type Note Facility Evaluation note No Information [employer] 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 (unrecognized sect ion and content) No Status Records Found INFORMATION SOURCE (unrecogn ized section and content) DATE CREATED AUTHOR [facility]16/2023 [facility] (unrecognized sec tion and content) Team Status: Active Member Role Status Dates PAGE Will Primary Care Provider Active Team Status: Inactive Member Role Status Dates Opal Leonardo APRN Attending Provider Active S tart: December 10, 2024 End: December 10, 2024 PAGE Will Primary Care Provider Active Start: December 10, 2024 End: December 10, 2024 Goals (unrecognized section and content) Goals may be documented in a n alternate section FOR RECORDS PERTAINING TO PATIENTS WHO ARE [...] BE BASED ON THE PRIMARY CLINICAL RECORDS. [employer] provides no warranty or guarantee of the accuracy or completeness of information in this document.
[2024-12-11 15:55] VITALS: BP 173/97; PULSE 108; TEMP 36.9; O2SAT 96; BMI 54.2
--- NOTE | 2024-12-11 16:05 | ED.URI1 ---
HPI - URI/Sore Throat General Chief Complaint: Upper Respiratory Infection Stated Complaint: CHEST PAINS CONJESTION FEVER Time Seen by Provider: 12/11/24 16:01 Source: patient Limitations: no limitations History of Present Illness HPI Narrative: 34 year old male presents to the ED for cough, congestion, chest discomfort with coughing. Onset was 12/09/24. Denies fever, chills, N/V/D. He saw his pcp yesterday and was prescribed Tamiflu for influenza; he has not started the medication. He took Advil at 0600 this morning. Related Data Home Medications ?Medication ?Instructions ?Recorded ?Confirmed amlodipine 5 mg tablet 5 mg PO DAILY 08/30/23 12/09/24 Previous Rx's ?Medication ?Instructions ?Recorded cephalexin 500 mg capsule 500 mg PO BID 5 days #10 caps 12/04/24 ciprofloxacin HCl 500 mg tablet 500 mg PO BID #10 tabs 12/09/24 (Cipro) benzonatate 100 mg capsule 100 mg PO TID PRN cough #20 caps 12/11/24 Allergies Allergy/AdvReac Type Severity Reaction Status Date / Time lisinopril Allergy Unknown Unknown Verified 12/11/24 16:01 Review of Systems ROS Constitutional Reports: chills and fatigue; Denies: fever Ears, nose, mouth, and throat Reports: nasal congestion; Denies: throat pain, neck pain or ear discharge Respiratory Reports: cough; Denies: shortness of breath Gastrointestinal Denies: abdominal pain, nausea, vomiting or diarrhea Musculoskeletal Reports: muscle cramps Integumentary/Breast Denies: rash Neurological Denies: headache, numbness in extremities, weakness in extremities or dizziness PFSH PFSH Social History Smoking status: Never smoker Little interest or pleasure in doing things: not at all Feeling down, depressed, or hopeless: not at all Exam Constitutional Vital Signs, click to edit/add: Last Vital Signs Temp 98.4 F 12/11/24 15:55 Pulse 108 H 12/11/24 15:55 Resp 20 12/11/24 15:55 BP 173/97 H 12/11/24 15:55 Pulse Ox 98 12/11/24 16:17 O2 Del Method Room Air 12/11/24 16:17 Common normals: no apparent distress and oriented x3 General appearance: cooperative HENMT Nose: nasal discharge Mouth: oral and palatal mucosa normal, lip normal and tongue normal Throat: posterior oropharynx normal and uvula midline Eye Common normals: conjunctivae normal and no scleral icterus Neck & C-Spine Common normals: supple Chest Chest: symmetrical chest wall rise Respiratory Common normals: normal respiratory effort, no use of accessory muscles and clear to auscultation bilaterally Effort & inspection: able to speak in complete sentences and symmetric chest movement Cardio Common normals: regular rate and regular rhythm Neuro Common normals: oriented x3 and moves all extremities Sensorium/orientation: awake and alert Speech: speech normal Gait (neuro): normal gait Course Vital Signs Vital signs: Vital Signs Temperature 98.4 F 12/11/24 15:55 Pulse Rate 108 H 12/11/24 15:55 Respiratory Rate 20 12/11/24 15:55 Blood Pressure 173/97 H 12/11/24 15:55 Pulse Oximetry 96 12/11/24 15:55 Oxygen Delivery Method Room Air 12/11/24 15:55 Temperature 98.4 F 12/11/24 15:55 Pulse Rate 108 H 12/11/24 15:55 Respiratory Rate 20 12/11/24 15:55 Blood Pressure 173/97 H 12/11/24 15:55 Pulse Oximetry 98 12/11/24 16:17 Oxygen Delivery Method Room Air 12/11/24 16:17 MDM - URI/Sore Throat MDM Narrative Medical decision making narrative: Pt was diagnosed with influenza yesterday by his pcp. He reported chest discomfort with coughing. He has a prescription for Tamiflu waiting at his pharmacy. He is currently taking Cipro for a UTI. A prescription was provided for tessalon perles. He was medicated with tessalon and Toradol here. Follow up with pcp for a recheck, further evaluation and treatment. Medical Records Attestation: I reviewed the patient's medical records. Discharge Plan Discharge Chief Complaint: Upper Respiratory Infection Clinical Impression: Upper respiratory infection, viral Patient Disposition: Home, Self-Care Time of Disposition Decision: 16:06 Condition: Good Mode of Transportation: Private Vehicle Prescriptions / Home Meds: New benzonatate 100 mg capsule 100 mg PO TID PRN (Reason: cough) Qty: 20 0RF No Action cephalexin 500 mg capsule 500 mg PO BID 5 Days Qty: 10 0RF amlodipine 5 mg tablet 5 mg PO DAILY ciprofloxacin HCl [Cipro] 500 mg tablet 500 mg PO BID Qty: 10 0RF Print Language: Italian Instructions: Influenza (ED), Upper Respiratory Infection (ED) Referrals: EM NAILS [Primary Care Provider] - 1 week
[2024-12-11 16:17] VITALS: O2SAT 98
[2024-12-11] MEDS: KETOROLAC TROMETHAMINE 30 MG/ML VIAL IM (16:25)
[2024-12-11] MEDS: BENZONATATE 100 MG CAPSULE 200 MG PO (16:25)
== END 2024-12-11 16:31 | disposition home or self-care (01) ==
PROVIDERS: Emergency Provider Emergency Medicine; PCP Nurse Practitioner Family
DX: J06.9 Acute upper respiratory infection, unspecified (principal)
CPT/HCPCS: 96372; 99284; J1885

== ENCOUNTER 2024-12-25 03:37 | Emergency (ER) | payer OTHER, SELFPAY ==
--- OUTSIDE RECORDS SUMMARY | 2024-12-25 04:00 | XMS_ITS | CCD ---
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 Name Role Phone Daisha Marks Unavailable JULIO ., DR STEPHENS Admitting Unavailable HAY ., DR STEPHENS Attending Unavailable HAY ., DR STEPHENS Consulting Unavailable JESU, [facility] Primary Care Unavailable ZIDEVYN, DR ASHLEY Molina Consulting Unavailable PAY ., DR BREAUX Admitting Unavailable PAY ., DR BREAUX Attending Unavailable [facility], [facility] Unavailable PAY ., DR BREAUX Consulting Unavailable JESU, ASHLI Attending Un[facility] [place] Unavailable JESU, ASHLI Admitting Un[facility] Primary [facility] [place] Unavailable LINDA, DR KILO Molina Admitting Unavailable LINDA, DR KILO Molina Attending Unavailable LINDA, DR KILO Molina Consulting Unavailable GOPI ESTEBAN Admitting Unavailable GOPI ESTEBAN Attending Unavailable GOPI ESTEBAN Consulting Unavailable [facility] Unavailable FELIX KEY Consulting Unavailable LINDA, DR KILO Molina Admitting Unavailable LINDA, DR KILO Molina Attending Unavailable LINDA, DR KILO Molina Consulting Unavailable JESU, [facility] Unavailable CLARE CELAYA Consulting Unavailable JESU, [facility] Primary Care Unavailable Allergies Allergy Classification Reported Allergen(s) Allergy Type Date of Onset Reaction(s) Facility (1 source) Amino Acids Drug Allergy 09-03-2021 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 Comment on above: Performed By: #### B MP, BNP #### [facility] [address] [place] [address] Dr. Scarlett Dickey PROF CHEM 8 (BAS METB)on Anion gap [Moles/Vol] 13.2 mmol/L Normal [facility] Comment on above: Performed By: #### B MP, BNP #### [facility] [address] [place] [address] Dr. Scarlett Dickey Calcium [Mass/Vol] 8.4 mg/dL Critically low 8.5-10.1 [facility] Comment on above: Performed By: #### B MP, BNP #### [facility] [address] [address] [address] Scarlett Dickey Chloride [Moles/Vol] 105 mmol/L Normal 98-107 [facility] Comment on above: Performed By: #### B MP, BNP #### [facility] [address] [place] [address] Dr. Scarlett Dickey CO2 [Moles/Vol] 28.9 mmol/L Normal 21.0-32.0 [facility] Comment on above: Performed By: #### B MP, BNP #### [facility] [address] [place] [address] Dr. Scarlett Dickey Creatinine [Mass/Vol] 1.04 mg/dL Normal 0.70-1.30 [facility] Comment on above: Performed By: #### B MP, BNP #### [facility] [address] [place] [address] Dr. Scarlett Dickey EGFR-AF COSTA RICAN >60 Normal >=60 [facility] Comment on above: Performed By: #### B MP, BNP #### [facility] [address] [place] [address] Dr. Scarlett Dickey EGFR-NON AF [place] R[place] >60 Normal >=60 [facility] Comment on above: Performed By: #### B MP, BNP #### [facility] [address] [place] [address] Dr. Scarlett Dickey Glucose [Mass/Vol] 147 mg/dL Critically high 74-106 [facility] Comment on above: Performed By: #### B MP, BNP #### [facility] [address] [place] [address] Dr. Scarlett Dickey Potassium [Moles/Vol] 4.1 mmol/L Normal 3.5-5.1 [facility] Comment on above: Performed By: #### B MP, BNP #### [facility] [address] [place] [address] Dr. Scarlett Dickey Sodium [Moles/Vol] 143 mmol/L Normal 136-145 [facility] Comment on above: Performed By: #### B MP, BNP #### [facility] [address] [place] [address] Dr. Scarlett Dickey Urea nitrogen [Mass/Vol] 14.0 mg/dL Normal 7.0-18.0 [facility] Comment on above: Performed By: #### B MP, BNP #### [facility] [address] [address] [address] Scarlett Dickey Urea nitrogen/Creatinin e [Mass ratio] 13.5 mg/mg Normal [facility] Comment on above: Performed By: #### B MP, BNP #### [facility] [address] [address] [address] Scarlett Dickey US EDD DOP LEG [...] ASHLEY LOVELACE Date: 2023-03-11 11:54 Normal [facility] CBC AUTO DIFFon 09-12-2022 BASO # 0.0 103/ul Normal 0.0-0.1 [facility] Comment on above: Performed By: #### C BC #### [facility] [address] [place] [address] Dr. Scarlett Dickey Basophils/100 WBC (Bld) 0.6 % Normal 0.2-2.0 [facility] Comment on above: Performed By: #### C BC #### [facility] [address] [place] [address] Dr. Scarlett Dickey EO # 0.2 103/ul Normal 0.0-0.7 [facility] Comment on above: Performed By: #### C BC #### [facility] [address] [place] [address] Dr. Scarlett Dickey Eosinophils/100 WBC (Bld) 5.0 % Normal 0.9-7.0 [facility] Comment on above: Performed By: #### C BC #### [facility] [address] [place] [address] Dr. Scarlett Dickey Erythrocyte distribution width (RBC) [Ratio] 13.6 % Normal 11.0-15.0 [facility] Comment on above: Performed By: #### C BC #### [facility] [address] [place] [address] Dr. Scarlett Dickey Hematocrit (Bld) [Volume fraction] 41.7 % Critically low 42.0-54.0 [facility] Comment on above: Performed By: #### C BC #### [facility] [address] [place] [address] Dr. Scarlett Dickey Hemoglobin (Bld) [Mass/Vol] 13.4 g/dL Critically low 14.0-18.0 [facility] Comment on above: Performed By: #### C BC #### [facility] [address] [place] [address] Dr. Scarlett Dickey IG # 0.00 10e3/ul Normal 0.00-0.03 [facility] Comment on above: Performed By: #### C BC #### [facility] [address] [place] [address] Dr. Scarlett Dickey IG % 0.0 % Normal 0.0-0.5 [facility] Comment on above: Performed By: #### C BC #### [facility] [address] [place] [address] Dr. Scarlett Dickey LYMPH # 1.2 103/ul Normal 1.2-3.8 [facility] Comment on above: Performed By: #### C BC #### [facility] [address] [place] [address] Dr. Scarlett Dickey Lymphocytes/100 WBC (Bld) 34.2 % Normal 20.5-60.0 [facility] Comment on above: Performed By: #### C BC #### [facility] [address] [place] [address] Dr. Scarlett Dickey MANUAL DIFF REQ NO Normal [facility] Comment on above: Performed By: #### C BC #### [facility] [address] [place] [address] Dr. Scarlett Dickey MCH (RBC) [Entitic mass] 28.6 pg Normal 25.9-34.0 [facility] Comment on above: Performed By: #### C BC #### [facility] [address] [place] [address] Dr. Scarlett Dickey MCHC (RBC) [Mass/Vol] 32.1 g/dL Normal 29.9-35.2 [facility] Comment on above: Performed By: #### C BC #### [facility] [address] [place] [address] Dr. Scarlett Dickey MCV (RBC) [Entitic vol] 88.9 fL Normal 80.0-94.0 [facility] Comment on above: Performed By: #### C BC #### [facility] [address] [place] [address] Dr. Scarlett Dickey MONO # 0.5 103/ul Normal 0.3-0.8 [facility] Comment on above: Performed By: #### C BC #### [facility] [address] [place] [address] Dr. Scarlett Dickey Monocytes/100 WBC (Bld) 13.6 % Critically high 1.7-12.0 [facility] Comment on above: Performed By: #### C BC #### [facility] [address] [place] [address] Dr. Scarlett Dickey NEUT # 1.7 103/ul Normal 1.4-6.5 [facility] Comment on above: Performed By: #### C BC #### [facility] [address] [place] [address] Dr. Scarlett Dickey Neutrophils/100 WBC (Bld) 46.6 % Normal 43.0-75.0 [facility] Comment on above: Performed By: #### C BC #### [facility] [address] [place] [address] Dr. Scarlett Dickey Platelet mean volume (Bld) [Entitic vol] 9.8 fL Normal 9.5-13.5 [facility] Comment on above: Performed By: #### C BC #### [facility] [address] [place] [address] Dr. Scarlett Dickey PLT 262 103/ul Normal 150-450 [facility] Comment on above: Performed By: #### C BC #### [facility] [address] [place] [address] Dr. Scarlett Dickey RBC 4.69 106/ul Critically low 4.70-6.10 [facility] Comment on above: Performed By: #### C BC #### [facility] [address] [place] [address] Dr. Scarlett Dickey WBC 3.6 103/ul Critically low 4.0-11.0 [facility] Comment on above: Performed By: #### C BC #### [facility] [address] [place] [address] Dr. Scarlett Dickey D-DIMERon 09-12-2022 D-DIMER 0.43 mg/L FEU Normal <=0.59 [facility] Comment on above: Performed By: #### D DIM #### [facility] [address] [place] [address] Dr. Scarlett Dickey D-DIMER COMMENTS SEE BELOW Normal [facility] Comment on above: Result Comment: Incr eases [...] hospitalization. Performed By: #### D DIM #### [facility] [address] [place] [address] Dr. Scarlett Dickey PROF 14(COMP METB)on 022 Albumin [Mass/Vol] 3.5 g/dL Normal 3.4-5.0 [facility] Comment on above: Performed By: #### C MP #### [facility] [address] [place] [address] Dr. Scarlett Dickey Albumin/Globulin [Mass ratio] 1.0 {ratio} Normal [facility] Comment on above: Performed By: #### C MP #### [facility] [address] [address] [address] Scarlett Dickey ALP [Catalytic activity/Vol] 63 U/L Normal 46-116 [facility] Comment on above: Performed By: #### C MP #### [facility] [address] [address] [address] Scarlett Dickey ALT [Catalytic activity/Vol] 32 U/L Normal 16-63 [facility] Comment on above: Performed By: #### C MP #### [facility] [address] [address] [address] Scarlett Dickey Anion gap [Moles/Vol] 6.0 mmol/L Normal [facility] Comment on above: Performed By: #### C MP #### [facility] [address] [place] [address] Dr. Scarlett Dickey AST [Catalytic activity/Vol] 12 U/L Critically low 15-37 [facility] Comment on above: Performed By: #### C MP #### [facility] [address] [place] [address] Dr. Scarlett Dickey Bilirubin [Mass/Vol] 0.4 mg/dL Normal 0.2-1.0 [facility] Comment on above: Performed By: #### C MP #### [facility] [address] [place] [address] Dr. Scarlett Dickey Calcium [Mass/Vol] 8.3 mg/dL Critically low 8.5-10.1 Th [facility] Comment on above: Performed By: #### C MP #### [facility] [address] [place] [address] Dr. Scarlett Dickey Chloride [Moles/Vol] 105 mmol/L Normal 98-107 [facility] Comment on above: Performed By: #### C MP #### [facility] [address] [address] [address] Scarlett Dickey CO2 [Moles/Vol] 31.1 mmol/L Normal 21.0-32.0 [facility] Comment on above: Performed By: #### C MP #### [facility] [address] [address] [address] Scarlett Dickey Creatinine [Mass/Vol] 0.80 mg/dL Normal 0.70-1.30 [facility] Comment on above: Performed By: #### C MP #### [facility] [address] [address] [address] Scarlett Dickey EGFR-AF COSTA RICAN >60 Normal >=60 [facility] Comment on above: Performed By: #### C MP #### [facility] [address] [address] [address] Scarlett Dickey EGFR-NON AF [place] R[place] >60 Normal >=60 [facility] Comment on above: Performed By: #### C MP #### [facility] [address] [place] [address] Dr. Scarlett Dickey Globulin (S) [Mass/Vol] 3.4 g/dL Normal [facility] Comment on above: Performed By: #### C MP #### [facility] [address] [address] [address] Scarlett Dickey Glucose [Mass/Vol] 103 mg/dL Normal 74-106 [facility] Comment on above: Performed By: #### C MP #### [facility] [address] [address] [address] Scarlett Dickey Potassium [Moles/Vol] 4.1 mmol/L Normal 3.5-5.1 [facility] Comment on above: Performed By: #### C MP #### [facility] [address] [place] [address] Dr. Scarlett Dickey Protein [Mass/Vol] 6.9 g/dL Normal 6.4-8.2 [facility] Comment on above: Performed By: #### C MP #### [facility] [address] [place] [address] Dr. Scarlett Dickey Sodium [Moles/Vol] 138 mmol/L Normal 136-145 [facility] Comment on above: Performed By: #### C MP #### [facility] [address] [place] [address] Dr. Scarlett Dickey Urea nitrogen [Mass/Vol] 9.0 mg/dL Normal 7.0-18.0 [facility] Comment on above: Performed By: #### C MP #### [facility] [address] [address] [address] Scarlett Dickey Urea nitrogen/Creatinin e [Mass ratio] 11.2 mg/mg Normal [facility] Comment on above: Performed By: #### C MP #### [facility] [address] [address] [address] Scarlett Dickey XR FOREARM LT 2 VIEWSon 11-0 XR FOREARM LT 2 VIEWS EXAM: XR [...] CLARE CELAYA Date: 2022-09-12 06:33 Normal [facility] Covid-19 PCR (CVDTBH)on 07-09 SARS-CoV-2 (COVID-19) RNA NATHAN+probe Ql (Unsp spec) Detected Critically abnormal NOT DETECTED [facility] Comment on above: Result Comment: This test is not yet approved or cleared by the [place] FDA. When there are no FDA-approved or cleared tests available, and other criteria are met, FDA can make tests available under an emergency access mechanism called an Emergency Use Authorization (EUA). The EUA for this test is supported by the [place] of Health and Human Service's declaration that [...] longer be used). Performed By: #### C VDTBH #### [facility] [address] [place], [place] [address] Dr. Scarlett Dickey XR CHEST 1 Von [...] by: FELIX KEY Date: 2022-08-01 21:[address] [facility] Vital Signs Date Time Vital Sign Value Performing Clinician Aditi early 12-10-2024 11:49-0500 Body height 182.88 cm [facility] 12-10-2024 11:49-0500 Body mass index (BMI) [Ratio] 54.8 kg/m2 [facility] 12-10-2024 11:49-0500 Body temperature 98.2 [degF] [facility] 12-10-2024 11:49-0500 Body weight 183.47 kg [facility] 12-10-2024 11:49-0500 Diastolic blood pressure 87 mm[Hg] [facility] 12-10-2024 11:49-0500 Heart rate 102 /min [facility] 12-10-2024 11:49-0500 Respiratory rate 19 /min [facility] 12-10-2024 11:49-0500 SaO2% (BldA) [Mass fraction] 98 % [facility] 12-10-2024 11:49-0500 Systolic blood pressure 128 mm[Hg] [facility] Encounters Encounter Date Encounter Type Care Provider Facility Start: 12-11-2024 End: 12-11-2024 Emergency department patient visit [facility] Start: 12-10-2024 End: 12-10-2024 [facility]ulatory [facility] Work Phone: Start: 12-10-2024 End: 12-10-2024 Patient encounter procedure [facility] Work Phone: Start: 03-11-2023 Patient encounter procedure Daisha Marks [facility] Start: 03-11-2023 End: 03-11-[address] ASHLEY LOVELACE [place] [facility] Other Start: 12-16-2022 End: 12-16-[address] ANGELO KIM . Facility:[facility] Start: 09-12-2022 End: 09-12-[address] KILO MCKEON Facility:[facility] Start: 08-01-2022 End: 08-02-2022 ambulatory GOPI ESTEBAN Facility:[facility] Start: 06-07-2022 End: 06-07-2022 ambulatory ASHLI VIRAMONTES Facility:[facility] Start: 04-08-2022 ambulatory ASHLI VIRAMONTES Facility: [facility] Payers Date Payer Category Payer Unknown [id number] 2.16.84 [id number] 1989 Unknown [id number] 2.16.84 [id number] 1989 Unknown [id number] 2.16.84 [id number] 1989 Unknown [id number] 2.16.84 [id number] 1989 Unknown [id number] 2.16.84 [id number] 1989 Unknown [id number] 2.16.84 [id number] 1989 Unknown [id number] [id number] 1959 Private Health Insurance [id number] 1960 Self-pay [id number] Unknown [id number] Social History Date Type Detail Facility Sex [facility] [place] [facility] if [facility] Work Phone: Start: 12-10-2024 Sex Male [facility]finding[facility] Start: 1990 Sex Assigned At Male [facility] Evaluation note Note Date & Type Note Facility Evaluation note No Information [facility] [employer] Other Evaluation note Note Date & Type Note Facility Evaluation note No assessment information availa [facility] Work Phone: Summary Purpose Family History No Family History Records FoundNo Family History Records Found Advance Directives No Advanced Directives Records Found Advance Directive Response Recorded Date/ Time Advance [...] sect ion and content) No Status Records FoundNo Status Records Found INFORMATION SOURCE (unrecogn ized section and content) DATE CREATED AUTHOR 03/16/2023 [facility] DATE CREATED AUTHOR AUTHOR'S ORGANIZ ATION 12/13/2024 [facility] Care Teams (unrecognized sec tion and content) Team Status: Active Member Role Status Dates Ashli Viramontes NP-Christie Primary Care Provider Active Team Status: Inactive [...] BE BASED ON THE PRIMARY CLINICAL RECORDS. [facility]. provides no warranty or guarantee of the accuracy or completeness of information in this document.
[2024-12-25 04:03] VITALS: BP 154/115; PULSE 87; TEMP 36.8; O2SAT 98; BMI 54.2
--- NOTE | 2024-12-25 04:12 | ED_ITS ---
HPI - Dental/Oral General Chief complaint: Dental/Oral Stated complaint: TOOTH PAIN Time Seen by Provider: 12/25/24 04:07 Source: patient Mode of arrival: walk-in Limitations: no limitations History of Present Illness HPI Narrative: 34-year-old male presents to the emergency department for dental pain. He is complaining of pain in the right lower dentition, first molar. He is scheduled to see his dentist later today and he believes it is getting get pulled. It has been hurting on and off for a month. He had been scheduled to have it removed a few weeks ago but he had gotten ill. No fever or difficulty breathing or swallowing. It is throbbing pain and severe. Related Data Home Medications ?Medication ?Instructions ?Recorded ?Confirmed amlodipine 5 mg tablet 5 mg PO DAILY 08/30/23 12/25/24 Previous Rx's ?Medication ?Instructions ?Recorded cephalexin 500 mg capsule 500 mg PO BID 5 days #10 caps 12/04/24 ciprofloxacin HCl 500 mg tablet 500 mg PO BID #10 tabs 12/09/24 (Cipro) benzonatate 100 mg capsule 100 mg PO TID PRN cough #20 caps 12/11/24 Allergies Allergy/AdvReac Type Severity Reaction Status Date / Time lisinopril Allergy Unknown Unknown Verified 12/25/24 04:02 Review of Systems ROS Narrative A ten point review of systems is negative except as noted above. PFSH PFSH Social History Smoking status: Never smoker Little interest or pleasure in doing things: not at all Feeling down, depressed, or hopeless: not at all Exam Narrative Exam Narrative: Nurses note and vital signs reviewed and patient is not hypoxic. General: The patient appears uncomfortable and is in no distress Skin: Warm, dry, no pallor noted. There is no rash noted. Head: Normocephalic, atraumatic Eye: Normal conjunctiva, no drainage Ears, Nose, Mouth, and Throat: oral mucosa is moist. Nares patent. No swelling to the floor of his mouth. Dental caries is noted in the right lower dentition. No gingival swelling or erythema. No bleeding or pus present. Cardiovascular: Regular Rate and Rhythm Respiratory: Patient is in no distress, no accessory muscle use, lungs are clear to auscultation, no wheezing, rales or rhonchi Back: non-tender GI: Nontender Musculoskeletal: No joint swelling Neurological: A&O, normal speech Psychiatric: Cooperative Constitutional Vital Signs, click to edit/add: Last Vital Signs Temp 98.3 F 12/25/24 04:03 Pulse 87 12/25/24 04:03 Resp 18 12/25/24 04:03 BP 154/115 H 12/25/24 04:03 Pulse Ox 98 12/25/24 04:03 O2 Del Method Room Air 12/25/24 04:03 Course Vital Signs Vital signs: Vital Signs Temperature 98.3 F 12/25/24 04:03 Pulse Rate 87 12/25/24 04:03 Respiratory Rate 18 12/25/24 04:03 Blood Pressure 154/115 H 12/25/24 04:03 Pulse Oximetry 98 12/25/24 04:03 Oxygen Delivery Method Room Air 12/25/24 04:03 Temperature 98.3 F 12/25/24 04:03 Pulse Rate 87 12/25/24 04:03 Respiratory Rate 18 12/25/24 04:03 Blood Pressure 154/115 H 12/25/24 04:03 Pulse Oximetry 98 12/25/24 04:03 Oxygen Delivery Method Room Air 12/25/24 04:03 MDM - Dental/Oral MDM Narrative Medical decision making narrative: He was given IM Toradol and oral penicillin and will see his dentist in a few hours. Treatment diagnosis and follow-up were discussed with the patient. Differential Diagnosis Differential diagnosis: Likely gingival abscess, dental caries, toothache and dental abscess Discharge Plan Discharge Chief Complaint: Dental/Oral Clinical Impression: Toothache Patient Disposition: Home, Self-Care Time of Disposition Decision: 04:11 Condition: Good Mode of Transportation: Private Vehicle Prescriptions / Home Meds: No Action cephalexin 500 mg capsule 500 mg PO BID 5 Days Qty: 10 0RF amlodipine 5 mg tablet 5 mg PO DAILY ciprofloxacin HCl [Cipro] 500 mg tablet 500 mg PO BID Qty: 10 0RF benzonatate 100 mg capsule 100 mg PO TID PRN (Reason: cough) Qty: 20 0RF Print Language: Monegasque Instructions: Toothache (ED) Additional Instructions: See your dentist at your appointment later today. Referrals: EM NAILS [Primary Care Provider] - 1 week
[2024-12-25] MEDS: PENICILLIN V POTASSIUM 250 MG TABLET 500 MG PO (04:21)
[2024-12-25] MEDS: KETOROLAC TROMETHAMINE 60 MG/2 ML VIAL IM (04:21)
--- NOTE | 2024-12-25 04:30 | PC.NURSE ---
i gave this patient verbal and paper discharge orders and this patient voices quynh to understanding these. at time of discharge this patient voices no concerns and shows no signs of distress
== END 2024-12-25 04:32 | disposition home or self-care (01) ==
PROVIDERS: Emergency Provider Emergency Medicine; PCP Nurse Practitioner Family
DX: K08.89 Other specified disorders of teeth and supporting structures (principal)
CPT/HCPCS: 96372; 99284; J1885

== ENCOUNTER 2025-06-25 13:40 | Outpatient (OUT) | payer OTHER, SELFPAY ==
[2025-06-25 14:55] LABS: Hematocrit 42.8 % (42.0-54.0); Hemoglobin 14.5 g/dL (14.0-18.0); Immature Granulocytes Abs Auto 0.01 10^3/uL (0.00-0.03); Immature Granulocytes Pct Auto 0.2 % (0.0-0.5); Lymphocytes Absolute Auto 1.1 10^3/uL (1.2-3.8); Mean Corpuscular HGB Conc 33.9 g/dL (29.9-35.2); Mean Corpuscular Hemoglobin 29.9 pg (25.9-34.0); Mean Corpuscular Volume 88.2 fL (80.0-94.0); Platelet Count 250 10^3/uL (150-450); Red Blood Count 4.85 10^6/uL (4.70-6.10); White Blood Count 4.0 10^3/uL (4.0-11.0)
[2025-06-25 14:58] LABS: Alanine Aminotransferase 29 U/L (16-63); Albumin Globulin Ratio 1.0; Albumin Level 3.3 g/dL (3.4-5.0); Anion Gap 9.1; Aspartate Amino Transferase 11 U/L (15-37); Blood Urea Nitrogen 11.0 mg/dL (7.0-18.0); Calcium 8.4 mg/dL (8.5-10.1); Carbon Dioxide 26.6 mmol/L (21.0-32.0); Chloride 108 mmol/L (98-107); Cholesterol 175 mg/dL (<=200); Estimated GFR (African America >60 (>=60 mL/min/1.73m^2); Estimated GFR (Non-African Ame >60 (>=60 mL/min/1.73m^2); Free T3 2.90 pg/mL (2.18-3.98); Globulin 3.4 g/dL; Glucose 120 mg/dL (74-106); HDL Cholesterol 37 mg/dL (40-60); Potassium 3.7 mmol/L (3.5-5.1); Sodium 140 mmol/L (136-145); Thyroid Stimulating Hormone 1.304 uIU/mL (0.358-3.740); Total Protein 6.7 g/dL (6.4-8.2); Triglycerides 106 mg/dL (<=150); Uric Acid 6.3 mg/dL (3.5-7.2); VLDL CHOLESTEROL 21.2 mg/dL
[2025-06-25 15:10] LABS: Alkaline Phosphatase 60 U/L (46-116)
--- OUTSIDE RECORDS SUMMARY | 2025-06-25 15:43 | XMS_ITS | CCD ---
Demographics Address [address] [place] [address] Preferred Language en Marital Status Single Christian Affiliation Unknown Race White Ethnic Group Not or Lati no Author Organization [facility] Inform ion Partnership [facility] Care Team Providers Care Sales Floor Team Member Name Role Phone Daisha Marks Unavailable JULIO ., DR STEPHENS Admitting Unavailable HAY ., DR STEPHENS Attending Unavailable HAY ., DR STEPHENS Consulting Unavailable JESU, [facility] Primary Care Unavailable ZIDEVYN, DR ASHLEY Molina Consulting Unavailable PAY ., DR BREAUX Admitting Unavailable PAY ., DR BREAUX Attending Unavailable [facility], [facility] Unavailable PAY ., DR BREAUX Consulting Unavailable JESU, ASHLI Attending Unavailable [facility] Primary [facility] Unavailable JESU, ASHLI Admitting Unavailable [facility] Primary [facility] Unavailable LINDA, DR KILO Molina Admitting Unavailable LINDA, DR KILO Molina Attending Unavailable LINDA, DR KILO Molina Consulting Unavailable GOPI ESTEBAN Admitting Unavailable GOPI ESTEBAN Attending Unavailable GOPI ESTEBAN Consulting Unavailable [facility] Unavailable FELIX KEY Consulting Unavailable LINDA, DR KILO Molina Admitting Unavailable LINDA, DR KILO Molina Attending Unavailable LINDA, DR KILO Molina Consulting Unavailable JESU, [facility] Unavailable CLARE CELAYA Consulting Unavailable JESU, [facility] Primary Care Unavailable Allergies Allergy Classification Reported Allergen(s) Allergy Type Date of Onset Reaction(s) Facility (1 source) Amino Acids Drug Allergy 09-03-2021 [facility] Repository Medications Current Medications Medication Drug Class(es) [...] Onset: 12-11-2024 Other aftercare (1 source) Other longterm (current) drug therapy; Translations: [OTH BENEFITS ADMINISTRATOR CURRENT DRUG THERAPY] Onset: 03-15-2023 Episodic Other [...] By: #### B MP, BNP #### [facility] [address] [place] [address] Dr. Scarlett Dickey PROF CHEM 8 (BAS METB)on Anion gap [Moles/Vol] 13.2 mmol/L Normal [facility] Comment on above: Performed By: #### B MP, BNP #### [facility] [address] [place] [address] Dr. Scarlett Dickey Calcium [Mass/Vol] 8.4 mg/dL Critically low 8.5-10.1 [facility] Comment on above: Performed By: #### B MP, BNP #### [facility] [address] [address] [address] Scarlett Dickey Chloride [Moles/Vol] 105 mmol/L Normal 98-107 [facility] Comment on above: Performed By: #### B MP, BNP #### [facility] [address] [place] [address] Dr. Scarlett Dickey CO2 [Moles/Vol] 28.9 mmol/L Normal 21.0-32.0 [facility] Comment on above: Performed By: #### B MP, BNP #### [facility] [address] [place] [address] Dr. Scarlett Dickey Creatinine [Mass/Vol] 1.04 mg/dL Normal 0.70-1.30 [facility] Comment on above: Performed By: #### B MP, BNP #### [facility] [address] [place] [address] Dr. Scarlett Dickey EGFR-AF SLOVAK >60 Normal >=60 [facility] Comment on above: Performed By: #### B MP, BNP #### [facility] [address] [place] [address] Dr. Scarlett Dickey EGFR-NON AF SLOVAK >60 Normal >=60 [facility] Comment on above: Performed By: #### B MP, BNP #### [facility] [address] [place] [address] Dr. Scarlett Dickey Glucose [Mass/Vol] 147 mg/dL Critically high 74-106 [facility] Comment on above: Performed By: #### B MP, BNP #### [facility] [address] [place] [address] Dr. Scarlett Dickey Potassium [Moles/Vol] 4.1 mmol/L Normal 3.5-5.1 [facility] Comment on above: Performed By: #### B MP, BNP #### [facility] [address] [place] [address] Dr. Scarlett Dickey Sodium [Moles/Vol] 143 mmol/L Normal 136-145 [facility] Comment on above: Performed By: #### B MP, BNP #### [facility] [address] [place] [address] Dr. Scarlett Dickey Urea nitrogen [Mass/Vol] 14.0 mg/dL Normal 7.0-18.0 [facility] Comment on above: Performed By: #### B MP, BNP #### [facility] [address] [address] [address] Scarlett Dickey Urea nitrogen/Creatinin e [Mass ratio] 13.5 mg/mg Normal [facility] Comment on above: Performed By: #### B MP, BNP #### [facility] [address] [address] [address] Scarlett Dickey US EDD DOP LEG [...] LOVELACE Date: 2023-03-11 11:54 Normal [facility] CBC AUTO DIFFon 09-12-2022 BASO # 0.0 103/ul Normal 0.0-0.1 [facility] Comment on above: Performed By: #### C BC #### [facility] [address] [place] [address] Dr. Scarlett Dickey Basophils/100 WBC (Bld) 0.6 % Normal 0.2-2.0 [facility] Comment on above: Performed By: #### C BC #### [facility] [address] [place] [address] Dr. Scarlett Dickey EO # 0.2 103/ul Normal 0.0-0.7 [facility] Comment on above: Performed By: #### C BC #### [facility] [address] [place] [address] Dr. Scarlett Dickey Eosinophils/100 WBC (Bld) 5.0 % Normal 0.9-7.0 [facility] Comment on above: Performed By: #### C BC #### [facility] [address] [place] [address] Dr. Scarlett Dickey Erythrocyte distribution width (RBC) [Ratio] 13.6 % Normal 11.0-15.0 [facility] Comment on above: Performed By: #### C BC #### [facility] [address] [place] [address] Dr. Scarlett Dickey Hematocrit (Bld) [Volume fraction] 41.7 % Critically low 42.0-54.0 [facility] Comment on above: Performed By: #### C BC #### [facility] [address] [place] [address] Dr. Scarlett Dickey Hemoglobin (Bld) [Mass/Vol] 13.4 g/dL Critically low 14.0-18.0 [facility] Comment on above: Performed By: #### C BC #### [facility] [address] [place] [address] Dr. Scarlett Dickey IG # 0.00 10e3/ul Normal 0.00-0.03 [facility] Comment on above: Performed By: #### C BC #### [facility] [address] [place] [address] Dr. Scarlett Dickey IG % 0.0 % Normal 0.0-0.5 [facility] Comment on above: Performed By: #### C BC #### [facility] [address] [place] [address] Dr. Scarlett Dickey LYMPH # 1.2 103/ul Normal 1.2-3.8 [facility] Comment on above: Performed By: #### C BC #### [facility] [address] [place] [address] Dr. Scarlett Dickey Lymphocytes/100 WBC (Bld) 34.2 % Normal 20.5-60.0 [facility] Comment on above: Performed By: #### C BC #### [facility] [address] [place] [address] Dr. Scarlett Dickey MANUAL DIFF REQ NO Normal [facility] Comment on above: Performed By: #### C BC #### [facility] [address] [place] [address] Dr. Scarlett Dickey MCH (RBC) [Entitic mass] 28.6 pg Normal 25.9-34.0 [facility] Comment on above: Performed By: #### C BC #### [facility] [address] [place] [address] Dr. Scarlett Dickey MCHC (RBC) [Mass/Vol] 32.1 g/dL Normal 29.9-35.2 [facility] Comment on above: Performed By: #### C BC #### [facility] [address] [place] [address] Dr. Scarlett Dickey MCV (RBC) [Entitic vol] 88.9 fL Normal 80.0-94.0 [facility] Comment on above: Performed By: #### C BC #### [facility] [address] [place] [address] Dr. Scarlett Dickey MONO # 0.5 103/ul Normal 0.3-0.8 [facility] Comment on above: Performed By: #### C BC #### [facility] [address] [place] [address] Dr. Scarlett Dickey Monocytes/100 WBC (Bld) 13.6 % Critically high 1.7-12.0 [facility] Comment on above: Performed By: #### C BC #### [facility] [address] [place] [address] Dr. Scarlett Dickey NEUT # 1.7 103/ul Normal 1.4-6.5 [facility] Comment on above: Performed By: #### C BC #### [facility] [address] [place] [address] Dr. Scarlett Dickey Neutrophils/100 WBC (Bld) 46.6 % Normal 43.0-75.0 [facility] Comment on above: Performed By: #### C BC #### [facility] [address] [place] [address] Dr. Scarlett Dickey Platelet mean volume (Bld) [Entitic vol] 9.8 fL Normal 9.5-13.5 [facility] Comment on above: Performed By: #### C BC #### [facility] [address] [place] [address] Dr. Scarlett Dickey PLT 262 103/ul Normal 150-450 [facility] Comment on above: Performed By: #### C BC #### [facility] [address] [place] [address] Dr. Scarlett Dickey RBC 4.69 106/ul Critically low 4.70-6.10 [facility] Comment on above: Performed By: #### C BC #### [facility] [address] [place] [address] Dr. Scarlett Dickey WBC 3.6 103/ul Critically low 4.0-11.0 [facility] Comment on above: Performed By: #### C BC #### [facility] [address] [place] [address] Dr. Scarlett Dickey D-DIMERon 09-12-2022 D-DIMER 0.43 mg/L FEU Normal <=0.59 [facility] Comment on above: Performed By: #### D DIM #### [facility] [address] [place] [address] Dr. Scarlett Dickey D-DIMER COMMENTS SEE BELOW Normal [facility] Comment on above: Result Comment: Incr [...] Performed By: #### D DIM #### [facility] [address] [place] [address] Dr. Scarlett Dickey PROF 14(COMP METB)on 022 Albumin [Mass/Vol] 3.5 g/dL Normal 3.4-5.0 [facility] Comment on above: Performed By: #### C MP #### [facility] [address] [place] [address] Dr. Scarlett Dickey Albumin/Globulin [Mass ratio] 1.0 {ratio} Normal [facility] Comment on above: Performed By: #### C MP #### [facility] [address] [address] [address] Scarlett Dickey ALP [Catalytic activity/Vol] 63 U/L Normal 46-116 [facility] Comment on above: Performed By: #### C MP #### [facility] [address] [address] [address] Scarlett Dickey ALT [Catalytic activity/Vol] 32 U/L Normal 16-63 [facility] Comment on above: Performed By: #### C MP #### [facility] [address] [address] [address] Scarlett Dickey Anion gap [Moles/Vol] 6.0 mmol/L Normal [facility] Comment on above: Performed By: #### C MP #### [facility] [address] [place] [address] Dr. Scarlett Dickey AST [Catalytic activity/Vol] 12 U/L Critically low 15-37 [facility] Comment on above: Performed By: #### C MP #### [facility] [address] [place] [address] Dr. Scarlett Dickey Bilirubin [Mass/Vol] 0.4 mg/dL Normal 0.2-1.0 [facility] Comment on above: Performed By: #### C MP #### [facility] [address] [place] [address] Dr. Scarlett Dickey Calcium [Mass/Vol] 8.3 mg/dL Critically low 8.5-10.1 [facility] Comment on above: Performed By: #### C MP #### [facility] [address] [place] [address] Dr. Scarlett Dickey Chloride [Moles/Vol] 105 mmol/L Normal 98-107 [facility] Comment on above: Performed By: #### C MP #### [facility] [address] [address] [address] Scarlett Dickey CO2 [Moles/Vol] 31.1 mmol/L Normal 21.0-32.0 [facility] Comment on above: Performed By: #### C MP #### [facility] [address] [address] [address] Scarlett Dickey Creatinine [Mass/Vol] 0.80 mg/dL Normal 0.70-1.30 [facility] Comment on above: Performed By: #### C MP #### [facility] [address] [address] [address] Scarlett Dickey EGFR-AF SLOVAK >60 Normal >=60 [facility] Comment on above: Performed By: #### C MP #### [facility] [address] [address] [address] Scarlett Dickey EGFR-NON AF SLOVAK >60 Normal >=60 [facility] Comment on above: Performed By: #### C MP #### [facility] [address] [place] [address] Dr. Scarlett Dickey Globulin (S) [Mass/Vol] 3.4 g/dL Normal [facility] Comment on above: Performed By: #### C MP #### [facility] [address] [address] [address] Scarlett Dickey Glucose [Mass/Vol] 103 mg/dL Normal 74-106 [facility] Comment on above: Performed By: #### C MP #### [facility] [address] [address] [address] Scarlett Dickey Potassium [Moles/Vol] 4.1 mmol/L Normal 3.5-5.1 [facility] Comment on above: Performed By: #### C MP #### [facility] [address] [place] [address] Dr. Scarlett Dickey Protein [Mass/Vol] 6.9 g/dL Normal 6.4-8.2 [facility] Comment on above: Performed By: #### C MP #### [facility] [address] [place] [address] Dr. Scarlett Dickey Sodium [Moles/Vol] 138 mmol/L Normal 136-145 [facility] Comment on above: Performed By: #### C MP #### [facility] [address] [place] [address] Dr. Scarlett Dickey Urea nitrogen [Mass/Vol] 9.0 mg/dL Normal 7.0-18.0 [facility] Comment on above: Performed By: #### C MP #### [facility] [address] [address] [address] Scarlett Dickey Urea nitrogen/Creatinin e [Mass ratio] 11.2 mg/mg Normal [facility] Comment on above: Performed By: #### C MP #### [facility] [address] [address] [address] Scarlett Dickey XR FOREARM LT 2 [...] CELAYA Date: 2022-09-12 06:33 Normal [facility] Covid-19 PCR (CVDTBH)on 07-09 SARS-CoV-2 (COVID-19) RNA NATHAN+probe Ql (Unsp spec) Detected Critically abnormal NOT DETECTED [facility] Comment on above: Result Comment: This test is not yet approved or cleared by the [place] FDA. When there are no FDA-approved or cleared tests available, and other criteria are met, FDA can make tests available under an emergency access mechanism called an Emergency Use Authorization (EUA). The EUA for this test is supported by the Sample [employer] Builder of Health and Human Service's declaration that [...] used). Performed By: #### C VDTBH #### [facility] [address] [place], [place] [address] Dr. Scarlett Dickey XR CHEST 1 Von [...] by: FELIX KEY Date: 2022-08-01 21:16 Normal [facility] Vital Signs Date Time Vital Sign Value Performing Clinician Aditi early 12-10-2024 11:49-0500 Body height 182.88 cm [facility] 12-10-2024 11:49-0500 Body mass index (BMI) [Ratio] 54.8 kg/m2 [facility] 12-10-2024 11:49-0500 Body temperature 98.2 [degF] [facility] 12-10-2024 11:49-0500 Body weight 183.47 kg [facility] 12-10-2024 11:49-0500 Diastolic blood pressure 87 mm[Hg] [facility] 12-10-2024 11:49-0500 Heart rate 102 /min [facility] 12-10-2024 11:49-0500 Respiratory rate 19 /min [facility] 12-10-2024 11:49-0500 SaO2% (BldA) [Mass fraction] 98 % [facility] 12-10-2024 11:49-0500 Systolic blood pressure 128 mm[Hg] [facility] Encounters Encounter Date Encounter Type Care Provider Facility Start: 12-11-2024 End: 12-11-2024 Emergency department patient visit [facility] Start: 12-10-2024 End: 12-10-2024 ambulatory [facility] Work Phone: Start: 12-10-2024 End: 12-10-2024 Patient encounter procedure [facility] Work Phone: Start: 03-11-2023 Patient encounter procedure Daisha Marks [facility] Start: 03-11-2023 End: 03-11-[address] ASHLEY LOVELACE [place] [facility] Other Start: 12-16-2022 End: 12-16-[address] ANGELO KIM . Facility:[facility] Start: 09-12-2022 End: 09-12-[address] KILO MCKEON Facility:[facility] Start: 08-01-2022 End: 08-02-2022 ambulatory GOPI ESTEBAN Facility:[facility] Start: 06-07-2022 End: 06-07-2022 ambulatory ASHLI VIRAMONTES Facility:[facility] Start: 04-08-2022 ambulatory ASHLI VIRAMONTES Facility: [facility] Payers Date Payer Category Payer Unknown [id number] 2.16.84 [id number] 1989 Unknown [id number] 2.16.84 [id number] 1989 Unknown [id number] 2.16.84 [id number] 1989 Unknown [id number] 2.16.84 [id number] 1989 Unknown [id number] 2.16.84 [id number] 1989 Unknown [id number] 2.16.84 [id number] 1989 Unknown [id number] 1959 Private Health Insurance [id number] 1960 Self-pay [id number] Unknown [id number] Social History Date Type Detail Facility Sex [facility]igned At [employer] [facility] if ever smoked [facility] Work Phone: Start: 12-10-2024 Sex Male (finding) [facility] Start: 1990 Sex Assigned At Male [facility] Evaluation note Note Date & Type Note Facility Evaluation note No Information [facility] [employer] Other Evaluation note Note Date & Type Note Facility Evaluation note No assessment information availa [facility] Work Phone: Summary Purpose Family History No [...] DATE CREATED AUTHOR AUTHOR'S ORGANIZ ATION 12/13/2024 [facility] Care Teams (unrecognized sec tion and [...] BE BASED ON THE PRIMARY CLINICAL RECORDS. [facility] [facility]. provides no warranty or guarantee of the accuracy or completeness of information in this document.
== END 2025-06-25 13:41 | disposition home or self-care (01) ==
LOC: LAB 13:41
PROVIDERS: PCP Nurse Practitioner Family; Visit Provider Nurse Practitioner Family
DX: Z00.00 Encounter for general adult medical examination without abnormal findings (principal)
CPT/HCPCS: 36415; 80053; 80061; 83036; 83525; 84403; 84436; 84443; 84481; 84550; 85025; G0103

== ENCOUNTER 2025-09-26 01:38 | Emergency (ER) | payer OTHER, SELFPAY ==
--- OUTSIDE RECORDS SUMMARY | 2024-09-12 03:30 | XMS_ITS ---
Demographics Address [address] [place] [address] Mobile Email Address Preferred Language en Marital Status unmarried Hoahaoism Affiliation Unknown Race White Ethnic Group Not or Lati no Author Organization [facility] [place] Address [address] [place] [address] Support Name Relationship Address Phone none, . Emergency Contact [address] [place] [address] Daniel Land Guarantor Unknown [phone] Care Team Providers Care Recreation Engineer Name Role Phone Ashli Viramontes Primary Care Provider [phone] REASON FOR VISIT 3mon f/u Encounters Encounter Location Date Provider Diagnosis [facility] [address] [place] [address] 09/12/2024 Ashli Viramontes Plan Of Treatment No Information Progress Notes * Daniel LAND JDOB: [birth year] (35 yo M)Acc No.[id number]:09/12/2024 UNLOCKED PROGRESS NOTE Progress Note Patient: Daniel HEBERT :?Ashli Viramontes ([facility]), CNPDOB:1990 ???Age:34 Y???Sex:MaleDate:4Phone:[phone]:[address] [place], [place] Subjective: * Chief Complaints: * 1 . 3mon f/u. * Medical History: Objective: * Vitals: Assessment: Plan: * Treatment: * * Electronic signature of Ashli Viramontes NP, ONLINE ADVERTISING DIRECTOR.POLICE COMMANDING OFFICER.[id number] on 09/26/2025 at 02:05 AM ESTSign off status: PendingVisit Status:?N/S N/C (No Show/No Charge) * Provider: Salvador HASSAN), POLICE COMMANDING OFFICER Date: 11/12/2023 Generated for Printing/Faxing/eTransmitting on:?09/26/2025 02:05 AM EST
--- OUTSIDE RECORDS SUMMARY | 2024-10-25 04:00 | XMS_ITS ---
Demographics Address [address] [place] [address] Mobile Email Address Preferred Language en Marital Status unmarried Anabaptism Affiliation Unknown Race White Ethnic Group Not or Lati no Author Organization [facility] [place] Address [address] [place] [address] Support Name Relationship Address Phone none, . Emergency Contact [address] [place] [address] Daniel Land Guarantor Unknown [phone] Care Team Providers Care Engineering Vice President Name Role Phone Ashli Viramontes Primary Care Provider REASON FOR VISIT 1mon f/u Encounters Encounter Location Date Provider Diagnosis [facility] [address] [place] [address] 10/25/2024 Ashli Viramontes Plan Of Treatment No Information Progress Notes * Daniel LAND JDOB: [birth year] (35 yo M)Acc No.[id number]:10/25/2024 UNLOCKED PROGRESS NOTE Progress Note Patient: Daniel HEBERT :?Ashli Viramontes ([facility]), CNPDOB:1990 ???Age:34 Y???Sex:MaleDate:4Phone:[phone]:[address] [facility]Check Out:09:18 AM EST Subjective: * Chief Complaints: * 1 . 1mon f/u. * Medical History: Objective: * Vitals: Assessment: Plan: * Treatment: * * Electronic signature of Ashli Viramontes NP, PAINTER [email or web address] on 09/26/2025 at 02:05 AM ESTSign off status: PendingVisit Status:?N/S N/C (No Show/No Charge) * Provider: Salvador Viramontes ([facility]), DUMPMAN Date: 1 12/26/2023 Generated for Printing/Faxing/eTransmitting on:?09/26/2025 02:05 AM EST
--- OUTSIDE RECORDS SUMMARY | 2025-09-24 05:30 | XMS_ITS ---
Author Organization [facility] in [place] Address [address] [place] [address] Care Team Providers Care Machine Plate Stacker Name Role Phone Ashli Viramontes Primary Care Provider Allergies Allergen (clinical drug ingredient) Drug/Non Drug Allergy documented on EMR Reaction Allergy Type Onset Date Status lisinopril Lisinopril cough Drug Allergy Active REASON FOR VISIT fmla paperwork for his back pain Medications Medication SIG (Take, Route, Frequency, Duration) Notes Start Date End Date Status Zepbound 2.5 MG/0.5ML as directed Subcut aneous; Duration: 28 days call for next dose 08/14/2025 Not-TakingamLODIPine Besylate 5 MG1 tablet Orally Once a day; Duration: 30 days 3ActiveAzelastine HCl 0.05 %1 drop into affected eye Ophthalmic Twice a day5ActivePhentermine HCl 37.5 MG1 capsule Orally Once a day; Duration: 30 days5Active Social History Tobacco Use: Social History Observation Description Date Details (start date - stop date) Former Smoker 11/07/2005 - 11/07/2013 Tobacco Use/Smoking Question Answer Notes Patient is a former smoker When did you start smoking?11/07/2005When did you stop smoking?11/07/2013How long has it been since you last smoked?> 10 yearsAdditional Findings: Tobacco Non-UserCurrent was-wercuqFMTBM-A (Standard) Question Answer Notes Did you have a drink containing alcohol in the p ast year? No [id number] Vital Signs Weight 415 lbs 09/24/2025 Height 72 in 09/24/2025 Blood pressure systolic 136 mm Hg 09/24/20 25 Blood pressure diastolic 82 mm Hg 025 BMI 56.28 kg/m2 09/24/2025 Encounters Encounter Location Date Provider Diagnosis [facility] [address] [place] [address] 09/24/2025 Ashli Viramontes Class 3 obesity E66.01 and Low back pain, unspecified M54.50 Assessments Encounter Date Diagnosis (ICD Code) Assessment Notes Treatment Notes Treatment Clinical Notes Section Notes 09/24/2025 Class 3 obesity (ICD-10 - E66.01 ) keep food diary, bring in next visit fu 1m 09/24/2025Low back pain, unspecified (ICD-10 - M54.50) ok for FMLA paperwork continue advil prn advised wt loss, stretching, exercise Plan Of Treatment Medication Medication Name Sig Start Date Stop Date Notes Phentermine HCl 37.5 MG 1 capsule Orally Once a day; Duration: 30 days 09/24/2025 Treatment Notes Assessment Notes Class 3 obesity keep food diary, bring in next visit fu 1m Low back pain, unspecified ok for FMLA paperwork continue advil prn advised wt loss, stretching, exercise Next Appt Details Follow Up: prn,4 Weeks, Reas on: Progress Notes * Daniel LAND JDOB: [birth year] (35 yo M)Acc No.[id number]:09/24/2025 UNLOCKED PROGRESS NOTE Progress Note Patient: Daniel HEBERT J :?Ashli Viramontes ([facility]), CNPDOB:1990 ???Age:35 Y???Sex:MaleDate:09/24/2025Phone:[phone]:[address] [place], [id number] In:10:33 AM ESTCheck Out:11:07 AM EST Subjective: * Chief Complaints: * 1 . Fmla paperwork for his back pain. 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 moving right leg certain ways or twisting makes worse hurts most in am as they day goes on can improve advil helps some some days worse than others no radiation pain down legs. * ROS: ???General/Constitutional:?Patient complaining of?not able to lose weight.?Fever& #160;denies.?Headache?denies.?Weight loss?denies.?Ophthalmologic:?Discharge?denies.?Eye Pain?denies.?Itching and redness?denies.?ENT:?Nasal discharge?denies.?Nasal congestion?denies. Sore throat?denies.?Cardiovascular:?Chest tightness/ heavy pressure?denies.?Rapid heart rate?denies.?Swelling of extremities?denies.?Chest pain?denies.?Respiratory:?Productive cough?denies.?Chest pain?denies.?Cough?denies.?Shortness of breath?denies.?Wheezing?denies.?Gastrointestinal:?Abdominal pain?denies.?Constipation?denies.?Decreased appetite?denies.?Diarrhea?denies.?Nausea?denies.?Vomiting denies.?Genitourinary:?Urinary incontinence?denies.?Painful urination?denies.?Musculoskeletal:?Back pain?admits low back.?Neck pain?denies. Muscle aches?denies.?Skin:?Rash?denies.?Skin lesion(s)?denies.? * Medical History: C OVID-19, Erectile dysfunction, Low back pain, unspecified, Hyperinsulinemia, Wellness examination, BMI 50.0-59.9, adult, Arthritis, Anxiety and depression, Hypertension. * Surgical History: R oot canal . * Family History: F ather: alive, diagnosed with Diabetes. M other: alive. 2 sister(s) - healthy. 1 son(s) , 3 daughter(s) - healthy. . * Social History: ???Tobacco Use:?Tobacco Use/Smoking?Patient is a?former smoker ?When did you start smoking??11/07/2005 ?When did you stop smoking??11/07/2013 ?How long has it been since you last smoked? > 10 years ?Additional Findings: Tobacco Non-User?Current non-smoker ???Drug/Alcohol:?AUDIT-C (Standard)?Did you have a drink containing alcohol in the past year??No ?Points?0 ?Interpretation?Negative * Medications: T aking amLODIPine Besylate 5 MG Tablet 1 tablet Orally Once a day , Taking Azelastine HCl 0.05 % Solution 1 drop into affected eye Ophthalmic Twice a day , Not- Taking/PRN Zepbound(Tirzepatide-Weight Management) 2.5 MG/0.5ML Solution Auto-injector as directed Subcutaneous , Notes to Pharmacist: call for next dose, Medication List reviewed and reconciled with the patient * Allergies: L isinopril: cough. Objective: * Vitals: W t:415lbs, Ht: 72 in, BP:136/82mm Hg, BMI:56.28Index, Ht-cm: 182.88 cm, Wt-k.24 kg. * Examination: ???General Examinations: ?GENERAL APPEARANCE:?alert and oriented, in no acute distress, morbidly obese.?EYES:?conjunctiva normal, sclera non-icteric.?NOSE:?normal external appearance.?LUNGS:?clear to auscultation bilaterally.?CARDIO:?regular rate and rhythm, S1, S2 normal.?MUSCULOSKELETAL:?Gait and station normal.?SKIN:?warm and dry.? Assessment: * Assessment: 1.?Low back pain, unspecified - M54.50 (Primary)???2.?Class 3 obesity - E66 .01??? Plan: * Treatment: Notes: ok for FMLA paperwork continue advil prn advised wt loss, stretching, exercise??2.?Class 3 obesity? Start Phentermine HCl Capsule, 37.5 MG, 1 capsule, Orally, Once a day, 30 days, 30 Capsule, Refills0.?? Notes: keep food diary, bring in next visit fu 1m ?? * Procedure Codes: 3 079F DIAST BP 80-89 MM HG, 3075F SYST BP GE 130 - 139MM HG * Preventive Medicine: ??Screenings/Counseling:?BMI ACTION PLAN?Above Normal BMI Follow-up?Dietary management education, guidance, and counseling * Follow Up: p rn,4 Weeks * * Electronic signature of Ashli Viramontes NP, OB NURSE.LATIN [id number] on 09/26/2025 at 02:05 AM ESTSign off status: PendingVisit Status:?CHK (Check Out) * Provider: Salvador Viramontes ([facility]), LATIN PROFESSOR Date: 11/24/2024 Generated for Printing/Faxing/eTransmitting on:?09/26/2025 02:05 AM EST History and Physical Notes * HPI (History of Present Illness) CategorySub-CategoryDetailNotesCategory 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[employer], [place] low back pain moving right leg certain ways or twisting makes worse hurts most in am as they day goes on can improve advil helps some some days worse than others no radiation pain down legs Examination CategorySub-CategoryDetailNotesCategory NotesGeneral ExaminationsGENERAL APPEARANCE:alert and oriented, in no acute distress, morbidly obeseEYES: conjunctiva normal, sclera non-ictericEARS:NOSE:normal external appearance THROAT:CARDIO:regular rate and rhythm, S1, S2 normalLUNGS:clear to auscultation bilaterallyABDOMEN:SKIN:warm and dryBACK:MUSCULOSKELETAL:Gait and station normal LYMPH NODES:
[2025-09-26 01:43] VITALS: PULSE 80; TEMP 37; O2SAT 98; BMI 54.2
--- NOTE | 2025-09-26 01:53 | PC.NURSE ---
Umbilicus is red on the inside. No drainage, no redness. States that he has observed some bloody drainge to the area earlier yesterday.
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
--- OUTSIDE RECORDS SUMMARY | 2025-09-26 02:05 | XMS_ITS | Patient Health Record ---
Demographics Address [address] [place] [address] Mobile Email Address Preferred Language en Marital Status unmarried Roman Catholic Affiliation Unknown Race White Ethnic Group Not or Lati no Author Organization [facility] [place] Address [address] [place] [address] Support Name Relationship Address Phone none, . Emergency Contact [address] [place] [address] Daniel Rogers Guarantor Unknown [phone] Care Team Providers Care Nurse School Name Role Phone Ashli Viramontes Primary Care Provider [phone] Kendell Cooley [phone] Allergies Allergen (clinical drug ingredient) Drug/Non Drug Allergy documented on EMR Reaction Allergy Type Onset Date Status lisinopril Lisinopril cough Drug Allergy Active Results Component Value Reference Range Notes UA Micro, reflex to culture Reviewed date:12/06/2024 04:30:21 PM Interpretation: Performing Lab: Notes/Report: [facility] , Color Urine YELLOW YELLOW Clarity UrineCLEARCLEARSpecific [place] Urine>=1.0301.005-1.025pH Urine6.0 5.0-9.0Protein UrineNEGATIVENEG/TRACE mg/dLGlucose Urine UANEGATIVENEGATIVE mg/dLBilirubin UrineNEGATIVENEGATIVEKetones UrineNEGATIVENEGATIVE mg/dLBlood UrineSMALLNEGATIVENitrite UrineNEGATIVENEGATIVEUrobilinogen Urine1.00.2-1.0 EU/dLLeukocyte Esterase UrineSMALLNEGATIVEWBC Odvlv24-07LDEP SEEN #/HPFRBC Urine 5-100-2 #/HPFBacteria UrineTRACENONE SEEN #/HPFMucus UrineSMALLNONE SEENSquamous Epithelial Cell UrineNONE SEENNONE/RARE #/LPFTransitional Epi Cells UrineRARE NONE SEEN #/LPFCrystals Seen?None SeenNone Seen #/HPFCast Seen?NONE SEENNONE SEEN #/LPFUrine Culture IndicatedYESPerforming Lab:see noteML - [facility] LBUrine Culture, Routine Reviewed date:12/17/2024 08:26:07 AM Interpretation: Performing Lab: Notes/Report: [facility] ,Urine Culture, RoutineSee Below For ReportUrine Culture, RoutineUrine Culture, RoutineCulture shows less than 10,000 colony forming units of bacteria perUrine Culture, RoutineUrine Culture, Routinemilliliter of urine. This colony count is not generally consideredUrine Culture, RoutineUrine Culture, Routineto be clinically significant.Urine Culture, RoutineUrine Culture, RoutinePerformed at: - [facility] Pollock PinesUrine Culture, RoutineUrine Culture, [address] [place], [place] [id number] Culture, RoutineUrine Culture, RoutineLab Director: Alexi Kilgore PhD, Phone: [phone] Culture, RoutinePerforming Lab:see note LC - [facility] LB SEE REPORT - Hearing Specialist Id information not found for OBX-specific dry mixer legend CBC AUTO DIFF Reviewed date:06/27/2025 09:59:46 AM Interpretation: Performing Lab: Notes/Report: [facility] ,White Blood Count4.04.0-11.0 10 3/uLRed Blood Count4.854.70-6.10 10 6/uL Gxfefolrfi43.514.0-18.0 g/dFUireufbspg05.842.0-54.0 %Mean Corpuscular Rkhduw76.2 80.0-94.0 fLMean Corpuscular Hvaznbjons46.925.9-34.0 pgMean Corpuscular HGB Conc 33.929.9-35.2 g/dLRed Cell Distribution Width13.011.0-15.0 %Platelet Gvmyy509 150-450 10 3/uLMean Platelet Volume9.99.5-13.5 fLNeutrophils Percent Auto57.9 43.0-75.0 %Lymphocytes Percent Auto27.220.5-60.0 %Monocytes Percent Auto8.51.7- 12.0 %Eosinophils Percent Auto5.70.9-7.0 %Basophils Percent Auto0.50.2-2.0 % Immature Granulocytes Pct Auto0.20.0-0.5 %Neutrophils Absolute Auto2.31.4-6.5 10 3/uLLymphocytes Absolute Auto1.11.2-3.8 10 3/uLMonocytes Absolute Auto0.30.3-0.8 10 3/uLEosinophils Absolute Auto0.20.0-0.7 10 3/uLBasophils Absolute Auto0.00.0- 0.1 10 3/uLImmature Granulocytes Abs Auto0.010.00-0.03 10 3/uLPerforming Lab:see note - [facility] LBFREE T3 Reviewed date:06/27/2025 09:59:46 AM Interpretation: Performing Lab: Notes/Report: [facility] ,Free T32.902.18-3.98 pg/mLPerforming Lab:see [facility] GLYCOHEMOGLOBIN A1C Reviewed date:06/27/2025 09:59:46 AM Interpretation: Performing Lab: Notes/Report: [facility] ,Glycohemoglobin A1C5.14.5-6.2 % ADA THERAPEUTIC TARGET < 7.0 ACTION SUGGESTED > 7.0 ADA RECOMMENDED LIMIT 4.0 - 6.0 Estimated Average Lcuiibi063Nzxwjekhms Lab:see [facility] - [facility] LB INSULIN Reviewed date:06/27/2025 09:59:46 AM Interpretation: Performing Lab: Notes/Report: Yarelis ,Porapei895.02.6-24.9 uIU/mL Performed at: [facility] Knife Machine Operator: Alexi Kilgore PhD, Phone: [phone] [address] [place], [place] [phone] Performing Lab:see [facility] LBLIPID PROFILE Reviewed date:06/27/2025 09:59:46 AM Interpretation: Performing Lab: Notes/Report: [facility] ,Ytletmrxpzezv324<=150 mg/wOBxuxpegmprg803<=200 mg/dLHDL Fjazqndsyib3625-63 mg/dL <40 mg/dl - HIGH CARDIOVASCULAR RISK > or =60 mg/dl - LOW CARDIOVASCULAR RISK LDL Cholesterol Cobsfnnjjo679.0 <100 mg/dl OPTIMAL 160-189 mg/dl HIGH 100-129 mg/dl NEAR OR ABOVE OPTIMAL >190 mg/dl VERY HIGH 130-159 mg/dl BORDERLINE HIGH VLDL RFKKVPXJPMG91.2Chol HDL Ratio4.7 >11.0 HIGH RISK 3.3 - 4.4 LOW RISK 4.4 - 7.1 AVERAGE RISK 7.1 - 11.0 MODERATE RISK Performing Lab:see note - [facility] LBPROF 14(COMP METB) Reviewed date:06/27/2025 09:59:46 AM Interpretation: Performing Lab: Notes/Report: [facility] ,Sftnhg633469-157 mmol/LPotassium3.73.5-5.1 mmol/PXtgjvcyd71676-242 mmol/LCarbon Oizzlmd97.621.0-32.0 mmol/LAnion Gap9.3Ylcakxi34920-279 mg/dLBlood Urea Nitrogen 11.07.0-18.0 mg/dLCreatinine0.880.70-1.30 mg/dLEstimated GFR ( [place]>60 >=60 mL/min/1.73m 2Estimated GFR (Non- [place]>60>=60 mL/min/1.73m 2BUN Creatinine Ratio12.7Qupphid6.48.5-10.1 mg/dLBilirubin Total0.60.2-1.0 mg/dL Aspartate Amino Apygjxxgzpu0580-79 U/LAlanine Kpdtmvoztysyjnbq3097-78 U/L Alkaline Qimygwfzubp4078-540 U/LTotal Protein6.76.4-8.2 g/dLAlbumin Level3.33.4- 5.0 g/dLGlobulin3.4Albumin Globulin Ratio1.0Performing Lab:see note - [facility] LBPSA SCREENING Reviewed date:06/27/2025 09:59:46 AM Interpretation: Performing Lab: Notes/Report: [facility] ,Prostate Specific Antigen Scrn0.32<=4.00 ng/mLPerforming Lab:see note - [facility] LBT4 Reviewed date:06/27/2025 09:59:46 AM Interpretation: Performing Lab: Notes/Report: [facility] ,T4 Uivsozabx92.604.50-12.10 ug/dLPerforming Lab:see note - [facility] LBTSH Reviewed date:06/27/2025 09:59:46 AM Interpretation: Performing Lab: Notes/Report: [facility] ,Thyroid Stimulating Hormone1.3040.358-3.740 uIU/mLPerforming Lab:see noteML - [facility] LBURIC ACID SERUM Reviewed date:06/27/2025 09:59:46 AM Interpretation: Performing Lab: Notes/Report: [facility] ,Uric Acid6.33.5-7.2 mg/dLPerforming Lab:see noteML - [facility] LB Testosterone Reviewed date:06/27/2025 09:59:46 AM Interpretation: Performing Lab: Notes/Report: [facility] ,Gbryknwxxxyb000531-493 ng/dL [id number]. Adult male reference interval is based on a population of Knife Machine Operator: Alexi Kilgore PhD, Phone: [phone] [address] [place], [place] [phone] old. elida Singleton.al. EM 2017,102;[phone]. PMID: Performed at: [facility] healthy nonobese males (BMI <30) between 19 and 39 years Performing Lab:see noteLC - [facility] LBURINE MICROSCOPIC ONLY Reviewed date:12/17/2024 08:26:08 AM Interpretation: Performing Lab: Notes/Report: [facility] ,WBC Urine>100NONE SEEN #/HPFRBC Urine>1000-2 #/HPFBacteria UrineMODERATENONE SEEN #/HPFMucus UrineNONE SEENNONE SEENSquamous Epithelial Cell UrineRARE NONE/RARE #/LPFCrystals Seen?None SeenNone Seen #/HPFCast Seen?NONE SEENNONE SEEN #/LPFUrine Culture IndicatedYESPerforming Lab:see noteML - [facility] LBUA (CLEAN or CATCH) PER DIEM RN or MICRO IF IND. Reviewed date:12/17/2024 08:26:07 AM Interpretation: Performing Lab: Notes/Report: [facility] ,Color UrineBROWNYELLOWClarity UrineTURBIDCLEARSpecific [place] Urine>=1.030 1.005-1.025pH Urine5.55.0-9.0Protein Clagi887BRW/TRACE mg/dLGlucose Urine UA NEGATIVENEGATIVE mg/dLBilirubin UrineSMALLNEGATIVEKetones UrineTRACENEGATIVE mg/dLBlood UrineLARGENEGATIVENitrite UrineNEGATIVENEGATIVEUrobilinogen Urine1.0 0.2-1.0 EU/dLLeukocyte Esterase UrineMODERATENEGATIVEUrine Microscopic Indicated YESPerforming Lab:see noteML - [facility] LBUrine Culture, Routine Reviewed date:12/17/2024 08:26:07 AM Interpretation: Performing Lab: Notes/Report: [facility] ,Urine Culture, RoutineSee Below For Report O:GNR Isolated O:ESCCOL Antibiotic Interpretation VIOLET Status Urine Culture, Routine Organism: Gram negative yuki : Isolated Organism: 1.1 Urine Culture, Routine*ABNORMAL* O:GNR Isolated O:ESCCOL Antibiotic Interpretation VIOLET Status Urine Culture, Routine Organism: Gram negative yuki : Isolated Organism: 1.1 Urine Culture, RoutineGreater than 100,000 colony forming units per mL O:GNR Isolated O:ESCCOL Antibiotic Interpretation VIOLET Status Urine Culture, Routine Organism: Gram negative yuki : Isolated Organism: 1.1 Urine Culture, RoutineGram negative yuki O:GNR Isolated O:ESCCOL Antibiotic Interpretation VIOLET Status Urine Culture, Routine Organism: Gram negative yuki : Isolated Organism: 1.1 Urine Culture, RoutineOrganism: Escherichia coli : O:GNR Isolated O:ESCCOL Antibiotic Interpretation VIOLET Status Urine Culture, Routine Organism: Gram negative yuki : Isolated Organism: 1.1 Urine Culture, Routine*ABNORMAL* O:GNR Isolated O:ESCCOL Antibiotic Interpretation VIOLET Status Urine Culture, Routine Organism: Gram negative yuki : Isolated Organism: 1.1 Urine Culture, RoutineIdentified by an automated biochemical system. O:GNR Isolated O:ESCCOL Antibiotic Interpretation VIOLET Status Urine Culture, Routine Organism: Gram negative yuki : Isolated Organism: 1.1 Urine Culture, RoutineCefazolin with an VIOLET <=16 predicts susceptibility to O:GNR Isolated O:ESCCOL Antibiotic Interpretation VIOLET Status Urine Culture, Routine Organism: Gram negative yuki : Isolated Organism: 1.1 Urine Culture, Routinethe oral agents cefaclor, cefdinir, cefpodoxime, O:GNR Isolated O:ESCCOL Antibiotic Interpretation VIOLET Status Urine Culture, Routine Organism: Gram negative yuki : Isolated Organism: 1.1 Urine Culture, Routinecefprozil, cefuroxime, cephalexin, and loracarbef when O:GNR Isolated O:ESCCOL Antibiotic Interpretation VIOLET Status Urine Culture, Routine Organism: Gram negative yuki : Isolated Organism: 1.1 Urine Culture, Routineused for therapy of uncomplicated urinary tract O:GNR Isolated O:ESCCOL Antibiotic Interpretation VIOLET Status Urine Culture, Routine Organism: Gram negative yuki : Isolated Organism: 1.1 Urine Culture, Routineinfections due to E. coli, Klebsiella pneumoniae, and O:GNR Isolated O:ESCCOL Antibiotic Interpretation VIOLET Status Urine Culture, Routine Organism: Gram negative yuki : Isolated Organism: 1.1 Urine Culture, RoutineProteus mirabilis. O:GNR Isolated O:ESCCOL Antibiotic Interpretation VIOLET Status Urine Culture, Routine Organism: Gram negative yuki : Isolated Organism: 1.1 Urine Culture, RoutineGreater than 100,000 colony forming units per mL O:GNR Isolated O:ESCCOL Antibiotic Interpretation VIOLET Status Urine Culture, Routine Organism: Gram negative yuki : Isolated Organism: 1.1 Urine Culture, RoutineEscherichia coli O:GNR Isolated O:ESCCOL Antibiotic Interpretation VIOLET Status Urine Culture, Routine Organism: Gram negative yuki : Isolated Organism: 1.1 Urine Culture, RoutineSee Below For Report O:GNR Isolated O:ESCCOL Antibiotic Interpretation VIOLET Status Urine Culture, Routine Organism: Gram negative yuki : Isolated Organism: 1.1 Urine Culture, RoutineSee Below For Report O:GNR Isolated O:ESCCOL Antibiotic Interpretation VIOLET Status Urine Culture, Routine Organism: Gram negative yuki : Isolated Organism: 1.1 Urine Culture, RoutinePerformed at: [facility] O:GNR Isolated O:ESCCOL Antibiotic Interpretation VIOLET Status Urine Culture, Routine Organism: Gram negative yuki : Isolated Organism: 1.1 Urine Culture, [address] [place], [place] [phone] O:GNR Isolated O:ESCCOL Antibiotic Interpretation VIOLET Status Urine Culture, Routine Organism: Gram negative yuki : Isolated Organism: 1.1 Urine Culture, RoutineLab Director: Alexi Kilgore PhD, Phone: [phone] O:GNR Isolated O:ESCCOL Antibiotic Interpretation VIOLET Status Urine Culture, Routine Organism: Gram negative yuki : Isolated Organism: 1.1 Urine Culture, RoutineSee Below For Report O:GNR Isolated O:ESCCOL Antibiotic Interpretation VIOLET Status Urine Culture, Routine Organism: Gram negative yuki : Isolated Organism: 1.1 Urine Culture, RoutineAMOXICILLIN/CLAVULANIC ACID S F O:GNR Isolated O:ESCCOL Antibiotic Interpretation VIOLET Status Urine Culture, Routine Organism: Gram negative yuki : Isolated Organism: 1.1 Urine Culture, RoutineAmpicillin S F O:GNR Isolated O:ESCCOL Antibiotic Interpretation VIOLET Status Urine Culture, Routine Organism: Gram negative yuki : Isolated Organism: 1.1 Urine Culture, RoutineCefazolin S F O:GNR Isolated O:ESCCOL Antibiotic Interpretation VIOLET Status Urine Culture, Routine Organism: Gram negative yuki : Isolated Organism: 1.1 Urine Culture, RoutineCefepime S F O:GNR Isolated O:ESCCOL Antibiotic Interpretation VIOLET Status Urine Culture, Routine Organism: Gram negative yuki : Isolated Organism: 1.1 Urine Culture, RoutineCefoxitin S F O:GNR Isolated O:ESCCOL Antibiotic Interpretation VIOLET Status Urine Culture, Routine Organism: Gram negative yuki : Isolated Organism: 1.1 Urine Culture, RoutineCefpodoxime S F O:GNR Isolated O:ESCCOL Antibiotic Interpretation VIOLET Status Urine Culture, Routine Organism: Gram negative yuki : Isolated Organism: 1.1 Urine Culture, RoutineCeftriaxone S F O:GNR Isolated O:ESCCOL Antibiotic Interpretation VIOLET Status Urine Culture, Routine Organism: Gram negative yuki : Isolated Organism: 1.1 Urine Culture, RoutineCiprofloxacin S F O:GNR Isolated O:ESCCOL Antibiotic Interpretation VIOLET Status Urine Culture, Routine Organism: Gram negative yuki : Isolated Organism: 1.1 Urine Culture, RoutineErtapenem S F O:GNR Isolated O:ESCCOL Antibiotic Interpretation VIOLET Status Urine Culture, Routine Organism: Gram negative yuki : Isolated Organism: 1.1 Urine Culture, RoutineGentamicin S F O:GNR Isolated O:ESCCOL Antibiotic Interpretation VIOLET Status Urine Culture, Routine Organism: Gram negative yuki : Isolated Organism: 1.1 Urine Culture, RoutineLevofloxacin S F O:GNR Isolated O:ESCCOL Antibiotic Interpretation VIOLET Status Urine Culture, Routine Organism: Gram negative yuki : Isolated Organism: 1.1 Urine Culture, RoutineMeropenem S F O:GNR Isolated O:ESCCOL Antibiotic Interpretation VIOLET Status Urine Culture, Routine Organism: Gram negative yuki : Isolated Organism: 1.1 Urine Culture, RoutineNitrofurantoin S F O:GNR Isolated O:ESCCOL Antibiotic Interpretation VIOLET Status Urine Culture, Routine Organism: Gram negative yuki : Isolated Organism: 1.1 Urine Culture, RoutineTetracycline S F O:GNR Isolated O:ESCCOL Antibiotic Interpretation VIOLET Status Urine Culture, Routine Organism: Gram negative yuki : Isolated Organism: 1.1 Urine Culture, RoutineTobramycin S F O:GNR Isolated O:ESCCOL Antibiotic Interpretation VIOLET Status Urine Culture, Routine Organism: Gram negative yuki : Isolated Organism: 1.1 Urine Culture, RoutineTrimethoprim/Sulfamethoxazole S F O:GNR Isolated O:ESCCOL Antibiotic Interpretation VIOLET Status Urine Culture, Routine Organism: Gram negative yuki : Isolated Organism: 1.1 Urine Culture, RoutinePiperacillin/Tazobactam S F O:GNR Isolated O:ESCCOL Antibiotic Interpretation VIOLET Status Urine Culture, Routine Organism: Gram negative yuki : Isolated Organism: 1.1 Performing Lab:see note LC - [facility] LB SEE REPORT - Hearing Specialist Id information not found for OBX-specific dry mixer legend Chlamydia/GC Amplification Reviewed date:12/06/2024 04:30:21 PM Interpretation: Performing Lab: Notes/Report: urine [facility] ,Chlamydia trachomatis, NAANegativeNegativeNeisseria gonorrhoeae, NAANegative Negative Performed at: = - [facility] [place] Knife Machine Operator: Lorena Hamm MD, Phone: [phone] [address] [place] [phone] Performing Lab:see note - [facility] LBCOVID-19, Flu A+B IH Reviewed date:06/27/2025 09:59:46 AM Interpretation: Performing Lab: Notes/Report: COVID-FLU A-FLU B-Control+ Reason For Referral No Information Medications Medication SIG (Take, Route, Frequency, Duration) [...] last smoked?> 10 yearsAdditional Findings: Tobacco Non-UserCurrent non-smokerAlcohol Screen (Audit-C) Question Answer Notes Did you have a drink containing alcohol in the p ast year? No Opbmgh9AjybvzmrdehuvoTwoclxdaUWENB-T (Standard) Question Answer Notes Did you have a drink containing alcohol in the p ast year? No Dgpgeb6JnkmlcoqzcuunfXyehjlsg Problems Problem Type SNOMED Code ICD Code Onset Dates Problem Status W/U Status Risk Notes Problem Hypertension (58090569) Hypertension (I10 ) ActiveconfirmedProblemArthritis (3555864)Arthritis (M19.90)Activeconfirmed ProblemObstructive sleep apnea syndrome (72807612)VIKRAM (obstructive sleep apnea) (G47.33)ActiveconfirmedProblemInsomnia (392328102)Insomnia (G47.00)Active confirmedProblemErectile dysfunction (692791428)Erectile dysfunction (N52.9) ActiveconfirmedProblemSeasonal allergy (511718275)Seasonal allergies (J30.2) ActiveconfirmedProblemAnxiety about health (902405674)Anxiety about health (F41.8)ActiveconfirmedProblemBody mass index 40+ - severely obese (416340635)BMI 50.0-59.9, adult (Z68.43)ActiveconfirmedProblemHyperinsulinemia (53944170) Hyperinsulinemia (E16.1)ActiveconfirmedProblemAnnual wellness visit (170130266536293)Wellness examination (Z00.00)ActiveconfirmedProblemDysphagia (95326329)Swallowing disorder (R13.10)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 in male (E29.1)ActiveconfirmedProblem Mixed anxiety and depressive disorder (841001448)Anxiety and depression (F41.8) ActiveconfirmedProblemCOVID-19 (600997186)COVID-19 (U07.1)ActiveconfirmedProblem Low back pain (353484126)Low back pain, unspecified (M54.50)Activeconfirmed ProblemMorbid obesity (734391032)Class 3 obesity (E66.01)Activeconfirmed Vital Signs Temperature 97.7 degrees Fahrenheit 01/23/2025 Alpvbwdx34 %01/23/2025lood pressure hqnspulif40 mm Hg09/24/20252416Pfgmvk32 in 09/24/2025lood pressure pgetwtlh858 mm Hg09/24/20256379Vhogec135 lbs111/24/2024MI 56.28 kg/m209/24/2025 Encounters Encounter Location Date Provider Diagnosis [facility] [address] [place] [address] 02/25/[address] [facility] [place] [address] 03/04[facility]20[facility] [place] [address]/Pamela CramerHypertension E74QapfraiSt. [facility] Hospital[address] [place] [address]/Pamela Wander [facility] [place] [facility] [address] 08/19/2025[facility] [place] [address]/Pamela ArturomerLow testosterone in male E29.1 and Wellness examination Z01.89[facility] [place] [address]/Pamela CramerSeasonal allergies J30.2 ; Class 3 obesity E66.01 and Hypertension L52XwpolvwSt. [facility] Hospital[address] [place] [address]/Pamela CramerConjunctivitis H10.9 [address] Wellness [address].00[facility] [place] [address]/06/2025Pamela CramerOSA (obstructive sleep apnea) G47.33 ; Class 3 obesity E66.01 and Conjunctivitis H10.9[facility] [place] [address]/Pamela CramerClass 3 obesity E66.01 and Low back pain, unspecified M54.50[facility] [place] [address]/01/2025Doug HoyFever R50.9 Assessments Encounter Date Diagnosis (ICD Code) Assessment Notes Treatment Notes Treatment Clinical Notes Section Notes 12/10/2024 Fever (ICD-10 - R50.9) 01/23/2025Seasonal allergies (ICD-10 - J30.2)01/23/2025lass 3 obesity (ICD-10 - E66.01) work on diet fu 1 month 06/04/2025onjunctivitis (ICD-10 - H10.9)06/04/2025Wellness examination (ICD-10 - Z00.00) requesting lab orders, did not get done in nov make fu apt to review 08/14/2025OSA (obstructive sleep apnea) (ICD-10 - G47.33)unable to tolerate cpap 08/14/2025lass 3 obesity (ICD-10 - E66.01) zepbound approved? 3m fu work on diet 09/24/2025lass 3 obesity (ICD-10 - E66.01) keep food diary, bring in next visit fu 09/24/2025Low back pain, unspecified (ICD-10 - M54.50) ok for FMLA paperwork continue advil prn advised wt loss, stretching, exercise 11/19/2024Low testosterone in male (ICD-10 - E29.1)11/19/2024Wellness examination (ICD-10 - Z01.89)05/21/2025Hypertension (ICD-10 - I10)08/14/2025 Conjunctivitis (ICD-10 - H10.9)01/23/2025Hypertension (ICD-10 - I10) continue to monitor bring BP readings didnt take med today Plan Of Treatment Pending Test Test Name Order Date CMP (COMPLETE METABOLIC PANEL) 3 CMP (COMPLETE METABOLIC PANEL) 4 HEMOGLOBIN A1C (GLYCO) 11/11/2023 HEMOGLOBIN A1C (GLYCO) 10/13/2023 HEMOGLOBIN A1C (GLYCO) 11/19/2024 HEMOGLOBIN A1C (GLYCO) 06/04/2025 INSULIN, TOTAL 06/04/2025 INSULIN, TOTAL 10/13/2023 INSULIN, TOTAL 11/19/2024 INSULIN, TOTAL 11/11/2023 LIPID PANEL (CHOL/TRIG/HDL/LDL) 11/11/19 24 LIPID PANEL (CHOL/TRIG/HDL/LDL) 11/19/19 25 LIPID PANEL (CHOL/TRIG/HDL/LDL) 06/04/20 25 LIPID PANEL (CHOL/TRIG/HDL/LDL) 10/13/20 23 CBC WITH DIFF 10/13/2023 CBC WITH DIFF 11/19/2024 CBC WITH DIFF 11/11/2023 UA (REFLEX URINALYSIS TO CULTURE) 2022 PSA, PROSTATE-SPECIFIC ANTIGEN 3 URIC ACID 06/04/2025 URIC ACID 11/19/2024 XR Lumbar Spine (2-3 views) * 09/13/2023 TESTOSTERONE 10/13/2023 TESTOSTERONE 11/11/2023 PSA, TOTAL 11/19/2024 TESTOSTERONE, TOTAL 03/01/2024 THYROID PANEL (T4/TSH/FREE T3) 5 THYROID PANEL (T4/TSH/FREE T3) 3 THYROID PANEL (T4/TSH/FREE T3) 5 THYROID PANEL (T4/TSH/FREE T3) 4 Testosterone 06/04/2025 Testosterone 11/19/2024 PSA, SCREENING 06/04/2025 CMP (COMP MET HOBSON) w/eGFR CKD-EPI 2024 CMP (COMP MET HOBSON) w/eGFR CKD-EPI 2024 CBC WITH DIFF 06/04/2025 Future Test Test Name Order Date TESTOSTERONE, TOTAL 12/31/2024 TESTOSTERONE, TOTAL 02/11/2025 Insurance Providers Payer Name Payer Address Payer Phone Subscriber Number Group Number Insured Name Patient Relationship to Insured Coverage Start Date Coverage End Date [facility] [address] [place] [address] [id number] Daniel Rogers Self - patient is the insured Medications Administered Medication Instructions Date of Administration Dosage Notes Ceftriaxone 1 gram gKetorolac Pqcneaajrjvv56/03/202560 mgTriamcinolone 40 mg/ml mg Medical (General) History Medical History History ICD Code COVID-19 U07.1 Erectile dysfunction N52.9 Low back pain, unspecified M54.50 Hyperinsulinemia E16.1 Wellness examination Z00.00 BMI 50.0-59.9, adult Z68.43 Arthritis M19.90 Anxiety and depression F41.8 Hypertension I10 Surgical History Surgery Date(Month/Year) Root canal
--- OUTSIDE RECORDS SUMMARY | 2025-09-26 02:05 | XMS_ITS | Clinical Summary ---
Demographics Address [address] [place] [address] Mobile Phone Preferred Language Arabic Marital Status Single Christian Affiliation Unknown Race White Ethnic Group Not or Lati no Author Organization [facility] tem Address [id number] [address] 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 21 tablet 05/12/2021ctive acetaminophen (TYLENOL) 500 mg tablet Take 1 tablet (500 mg total) by mouth every 6 (six) hours as needed for pain. 30 tablet 05/12/2021ctive amLODIPine (NORVASC) 10 mg tablet Take 0.5 tablets (5 mg total) by mouth in the morning.Active Immunizations ImmunizationAdministration DatesNext WbcUgzn5405/12/2021 Social History Tobacco UseTypesPacks/DayYears UsedDateSmoking Tobacco: NeverSmokeless Tobacco: CurrentChew Tobacco Cessation:Ready to Q uit: Not Asked; Counseling Given: Not Answered Alcohol UseStandard Drinks/WeekCommentsNot Currently0 (1 standard drink = 0.6 oz pure alcohol)ChildcareAnswerDate YzqkwjbdSsqyacftaUovajew86/12/2019Employment AnswerDate OmwjohlkQrsfdzrhfqKbjyape97/12/2019Hunger ScreeningAnswerDate RecordedWithin the past 12 months we worried whether our food would run out before we got money to buy more.Never True12/11/2024Within the past 12 months the food we bought just didn't last and we didn't have money to get more.Never True12/11/2024Purpose - LifeAnswerDate RecordedPurpose and direction in life Nqkeiyz2112/18/2020ex and Gender InformationValueDate RecordedSex Assigned at BirthNot on fileLegal KvdCudb8706/12/2015 11:39 AM EDTGender IdentityNot on file Sexual OrientationNot on file Last Filed Vital Signs Vital SignReadingTime TakenCommentsBlood Jylmdeas517/98012/11/2024 1:49 PM EST Zzhni93427/04/2025 1:49 PM KHRFtmwolqbppy24.1 ??C (98.7 ??F)12/11/2024 1:49 PM ESTRespiratory Jpch723012/11/2024 1:49 PM ESTOxygen Smeheoyzvh65%12/11/2024 1:49 PM ESTInhaled Oxygen Concentration--Vncsvs336.4 kg (400 lb)12/11/2024 1:49 PM GRCGcnuyn106.9 cm (6')12/11/2024 1:49 PM ESTBody Mass Index54.25012/11/2024 1:49 PM EST Plan of Treatment Health MaintenanceDue DateLast DoneCommentsDepression Ytfylazlx77/16/2001Tobacco Dgfixskvo58/16/2001Adult BMI Follow Up Plan2007Influenza Yssoini5607/08/2025 Adult BMI Jraruwyjw55DTaP,Tdap and Td Vaccines (8 - Td or Tdap), 12/14/2012, 03/11/1993, Additional history exists Medical Devices Not on file Insurance * Guarantor: Daniel Rogers TypeRelation to PatientDate of BirthPhone Billing AddressPersonal/ArhlplDefi1990 [address] [place] [address] Care Teams Team MemberRelationshipSpecialtyStart DateEnd Date Ashli Viramontes, 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
[2025-09-26] MEDS: CEPHALEXIN 500 MG CAPSULE PO (02:26)
--- NOTE | 2025-09-26 02:43 | ED.SKABFB1 ---
HPI - Skin/Abscess/Foreign Bdy General Chief complaint: Skin/Abscess/Foreign Body Stated complaint: POSS INFECTION, BLEED, LOWER EXTREMITY Time Seen by Provider: 09/26/25 01:46 Source: patient Mode of arrival: walk-in History of Present Illness HPI narrative: Patient presents for evaluation of irritation and bleeding from his umbilicus. He states that approximately once he gets an infection in his bellybutton. For the past 3 days he has had some drainage and bleeding from the bellybutton. He has not had any fever. He does not have any pain. He is obese. He denies being diabetic. Related Data Home Medications ?Medication ?Instructions ?Recorded ?Confirmed amlodipine 5 mg tablet 5 mg PO DAILY 08/30/23 09/26/25 Allergies Allergy/AdvReac Type Severity Reaction Status Date / Time lisinopril Allergy Unknown Unknown Verified 09/26/25 01:50 Review of Systems ROS Status of ROS 10 or more systems reviewed and unremarkable except as noted in history and below PFSH PFS Social History Smoking status: Never smoker Little interest or pleasure in doing things: not at all Feeling down, depressed, or hopeless: not at all Exam Narrative Exam Narrative: Vital signs and Nursing Notes reviewed: Is afebrile with a normal pulse, normal respiratory, he is not hypoxic with pulse ox of 98% on room air General: Awake, alert, oriented, no acute distress, lying comfortably on the stretcher HEENT: Normocephalic atraumatic, mucous membranes are moist and pink, eyes are clear, normal conjunctiva, vision is grossly intact Chest: Lungs are clear to auscultation with good air entry, there is no wheezing rhonchi or rales appreciated no accessory muscle use, patient is speaking in complete sentences-no chest wall tenderness to palpation CVS: Regular rate and rhythm S1-S2, no murmurs rubs or gallops, pulses are brisk and equal bilaterally ABD:, Soft, nondistended, mild tenderness with erythema in the umbilicus with a small amount of dried blood present, no abdominal wall cellulitis-is otherwise soft, nondistended and nontender Skin: Normal in appearance without rash,pallor, petechiae or purpura Neuro: No focal deficits Constitutional Vital Signs, click to edit/add: Last Vital Signs Temp 98.6 F 09/26/25 01:43 Pulse 80 09/26/25 01:43 Resp 16 09/26/25 01:43 Pulse Ox 98 09/26/25 01:43 O2 Del Method Room Air 09/26/25 01:43 Course Vital Signs Vital signs: Vital Signs Temperature 98.6 F 09/26/25 01:43 Pulse Rate 80 09/26/25 01:43 Respiratory Rate 16 09/26/25 01:43 Pulse Oximetry 98 09/26/25 01:43 Oxygen Delivery Method Room Air 09/26/25 01:43 Temperature 98.6 F 09/26/25 01:43 Pulse Rate 80 09/26/25 01:43 Respiratory Rate 16 09/26/25 01:43 Pulse Oximetry 98 09/26/25 01:43 Oxygen Delivery Method Room Air 09/26/25 01:43 MDM - Skin/Abscess/Foreign Bdy MDM Narrative Medical decision making narrative: This 35-year-old male who is obese presents for evaluation of bleeding and tenderness to his umbilicus. He states he gets an infection in his bellybutton approximately 1 time a year. He is not having any fever or abdominal pain. He has some mild tenderness and erythema inside the umbilicus. There is no extension into the abdominal wall. He was last treated over a year ago with Keflex for similar infection with clinical improvement. I encouraged him to use warm soapy water to keep the bellybutton area clean, dry it and he will be prescribed Bactroban in addition he will be given oral Keflex. He is otherwise stable for discharge. There is no drainage for culture. Medical Records Attestation: I reviewed the patient's medical records. Discharge Plan Discharge Chief Complaint: Skin/Abscess/Foreign Body Clinical Impression: Cellulitis, umbilical Patient Disposition: Home, Self-Care Time of Disposition Decision: 02:30 Condition: Good Prescriptions / Home Meds: No Action amlodipine 5 mg tablet 5 mg PO DAILY Print Language: Israeli Instructions: Cellulitis (ED) Additional Instructions: Warm soapy water to irrigate your bellybutton. Dry it with gauze and apply Bactroban 2-3 times a day. Use antibiotics as directed. Return to the emergency department for worsening symptoms, fever or any concerns. Referrals: [facility] [Primary Care Provider, Family Practice] - 1 week Discharge Date/Time: 09/26/25 02:36
== END 2025-09-26 02:36 | disposition home or self-care (01) ==
PROVIDERS: Emergency Provider Emergency Medicine; PCP Nurse Practitioner Family
DX: L03.316 Cellulitis of umbilicus (principal)
CPT/HCPCS: 99283